=== PATIENT | female | born 1980 | race Caucasian/White ===

== ENCOUNTER → 2017-09-20 12:23 | Outpatient (CLI) | payer BC, SELFPAY ==
[2017-09-20 12:37] LABS: Basophils # 0.1 K/mm3 (0-0.2); Basophils % 0.7 % (0.1-2.0); Eosinophils # 0.1 K/mm3 (0.0-0.4); Eosinophils % 1.6 % (0.1-12.0); Hematocrit 46.6 % (37.0-47.0); Lymphocytes # 2.2 K/mm3 (0.7-4.5); Lymphocytes % 24.1 K/mm3 (10-50); Mean Corpuscular HGB Conc 32.3 g/dL (31.8-35.4); Mean Corpuscular Hemoglobin 26.8 pg (27.0-31.2); Mean Corpuscular Volume 83.2 fl (81-99); Mean Platelet Volume 7.7 fl (7.4-10.4); Monocytes # 0.5 K/mm3 (0.1-1.0); Monocytes % 5.3 % (1.7-9.3); Neutrophils # 6.1 K/mm3 (1.8-7.8); Neutrophils % 68.3 % (37.0-80.0); Platelet Count 332 K/mm3 (142-424); Red Cell Distribution Width 13.7 % (11.5-17.5); White Blood Count 8.9 K/mm3 (4.8-10.8)
[2017-09-20 13:13] LABS: Anion Gap 10.8 mEq/L (5-15); Blood Urea Nitrogen 12 mg/dL (7-18); Carbon Dioxide 30 mmol/L (21.0-32.0); Chloride 105 mmol/L (98-107); Creatinine,Serum 0.88 mg/dL (0.55-1.02); Estimated Glomerular Filt Rate 72 ml/min (>60); GFR (African American) 87 ML/MIN (>60); Glucose 104 mg/dL (74-106); Potassium 3.8 mmoL/L (3.5-5.1); Sodium 142 mmol/L (136-145)
[2017-09-20 13:29] LABS: HCG Qualitative, Serum Negative (Negative)
== END ==
PROVIDERS: PCP Physician Assistant; Visit Provider Nurse Practitioner Obstetrics & Gynecology
DX: Z01.818 Encounter for other preprocedural examination (principal)
CPT/HCPCS: 36415; 80048; 84703; 85025

== ENCOUNTER 2017-09-23 06:08 | Day surgery (SDC) | payer BC, SELFPAY ==
[2017-09-20 12:09] VITALS: BMI 36.0
[2017-09-23] VITALS (11 sets, daily range): BP systolic 114–147; BP diastolic 64–85; PULSE 55–654; RESP 12–64; TEMP 36.1–43; O2SAT 94–99
--- NOTE | 2017-09-23 07:18 | P.PN_ITS ---
[facility] Anesthesia Checklist - Patient Identification Patient Identification: Arm Band, Verbal (Name & ) - Structural Data Admitted From: Home Planned Operative Procedure/s: dx lap, d and c Consent for Planned Operative Procedure(s) Verified: Yes Verified Documents: Surgical Consent - NPO Status Verified Time NPO: 00:00 - Chart Verification Results Verified: CBC, BMP - Additional verifications Patient : No Anesthesia Reactions: No Hx Blood Transfusions: No Blood Transfusion Reaction: No Cephalosporin Allergy: No Previous Colonoscopy: No - Cardiovascular Assessment Heart Sounds: S1 & S2 Pulse Strength: Baseline Pulse Rhythm: Regular Peripheral Edema: No - Airway Assessment C-Spine Mobility Assessed: Yes TMJ Mobility Assessed: Yes Dentition: Good Dentition - Neurological Assessment Level of Consciousness: Awake, Alert, Appropriate Hx Seizures: No Numbness or tingling in extremities: No - Anesthesia Plan Anesthesia Risk discussed: Yes ASA Class: III Anesthesia Type: General [facility] Anesthesia HX I have reviewed the patient's past medical history: Yes Medical History: Reports:: Gastroesophageal Reflux Disease(GERD), Hypertension Denies:: Cancer, Diabetes Mellitus Type 1, Diabetes Mellitus Type 2, MRSA, Seizures Other Medical History: Denies: Blood Transfusion Reaction (n/a) Laterality Cases: Bilateral: Other Amputation: No Fractures: No *Family Hx:: Cancer, Coronary Artery Disease, Diabetes, Heart Attack, Hyperlipidemia, Hypertension
--- NOTE | 2017-09-23 08:38 | HMH.OPNOTE ---
Date of procedure: 09/23/17 Pre-op Diagnosis:: Menorrhagia, desire for sterilization Post-op diagnosis:: same Procedure performed:: Laparoscopic bilateral salpingectomy, hysteroscopy, dilation and curettage, NovaSure ablation Surgeon:: Simone Melendez MD LITHOGRAPH PRESS OPERATOR:: Luciano Saundersferty Anesthesia: GETJoey Estimated blood loss (mL): 50 Clinical Note:: She is a 37-year-old lady who expressed desire for sterilization. She also had heavy periods. The risks and benefits of surgery discussed the patient prior to surgery. Operative findings:: She had a normal-appearing uterus that sounded to 8 cm. The tubes and ovaries appeared normal. The appendix appeared normal. The upper abdomen appeared normal. The pelvis otherwise appear normal. Operative note:: She was taken to the operating room where general anesthesia was found be adequate. She was prepped and draped in the normal fashion in the semilithotomy position. A weighted speculum was placed in the vagina and the anterior lip of the cervix was grasped with a tenaculum. Williamson dilators used to dilate the cervix to approximately 4 mm. I then inserted a Estela uterine manipulator into the uterine cavity and insufflated the balloon. I then changed my gloves. I injected 10 cc of 0.5% ropivacaine around the umbilicus and made a small incision within the umbilicus. I inserted a Veress needle into the abdominal cavity. The abdominal cavity was then insufflated with carbon dioxide gas to a pressure of 20 mmHg. I then inserted a 5 mm trocar under direct vision. I injected through and through the pubic hairline, made a small incision here and inserted an 8 mm trocar under direct vision. I then identified the inferior epigastric arteries on the left side, went lateral to these and injected through and through. I then inserted a 5 mm trocar under direct vision. The left tube was then grasped and using harmonic scalpel I cut across the tube at the cornua of the uterus. I cauterized along the tube approximately 1 cm. I then grasped the distal end of the tube and using harmonic scalpel cut along the mesosalpinx. Tube was removed and placed in the through the 8 mm trocar. This is similar performed on the patient's right side. After once again assuring hemostasis, Photographs were taken. I injected 30 cc of 0.5% ropivacaine into the pelvis. The secondary trochars were then removed under direct vision and the sites were hemostatic. The gas was let out of the abdomen. The primary trocar and camera removed together. The 8 mm trocar site was closed deeply with 2-0 Vicryl suture followed by subcuticular 4-0 Monocryl. The 5 mm trocar sites were closed with subcuticular 4-0 Monocryl suture. Sterile dressings were applied. Patient was then once again placed in the lithotomy position. A weighted speculum was placed in the vagina and the anterior lip of the cervix was grasped with a tenaculum. Williamson dilators were used to dilate the cervix to approximately 7 mm. I then inserted hysteroscope into the uterine cavity using saline as a distending media. The endometrium appeared normal. I then performed a gentle curettage. The uterus sounded to 8 cm and the endometrial cavity was 5 cm long. It was 3.6 cm wide. These numbers were placed in the device. The NovaSure device was then placed within the uterine cavity. It was run through its program. I then further inspected the uterine cavity after the procedure and photographs were taken. The endometrial cavity appeared to be completely charred. I injected 30 cc of 0.5% ropivacaine at the 3:00, 5:00, 7:00, and 9:00 positions of the cervix. The patient tolerated the procedure well and was taken to the recovery room in excellent condition. All sponge instrument and needle counts were correct. The estimated blood loss was less than 50 cc. Pathology: other (Endometrial curettings, bilateral fallopian tubes) Condition: stable Disposition: PACU Complications:: None
--- NOTE | 2017-09-23 08:43 | P.OP_ITS ---
Date of procedure: 09/23/17 Pre-op Diagnosis:: Menorrhagia, desire for sterilization Post-op diagnosis:: same Procedure performed:: Laparoscopic bilateral salpingectomy, hysteroscopy, dilation and curettage, NovaSure ablation Surgeon:: Simone Melendez MD PORCELAIN ENAMELER:: Luciano Saundersferty Anesthesia: GETJoey Estimated blood loss (mL): 50 Clinical Note:: She is a 37-year-old lady who expressed desire for sterilization. She also had heavy periods. The risks and benefits of surgery discussed the patient prior to surgery. Operative findings:: She had a normal-appearing uterus that sounded to 8 cm. The tubes and ovaries appeared normal. The appendix appeared normal. The upper abdomen appeared normal. The pelvis otherwise appear normal. Operative note:: She was taken to the operating room where general anesthesia was found be adequate. She was prepped and draped in the normal fashion in the semilithotomy position. A weighted speculum was placed in the vagina and the anterior lip of the cervix was grasped with a tenaculum. Williamson dilators used to dilate the cervix to approximately 4 mm. I then inserted a Estela uterine manipulator into the uterine cavity and insufflated the balloon. I then changed my gloves. I injected 10 cc of 0.5% ropivacaine around the umbilicus and made a small incision within the umbilicus. I inserted a Veress needle into the abdominal cavity. The abdominal cavity was then insufflated with carbon dioxide gas to a pressure of 20 mmHg. I then inserted a 5 mm trocar under direct vision. I injected through and through the pubic hairline, made a small incision here and inserted an 8 mm trocar under direct vision. I then identified the inferior epigastric arteries on the left side, went lateral to these and injected through and through. I then inserted a 5 mm trocar under direct vision. The left tube was then grasped and using harmonic scalpel I cut across the tube at the cornua of the uterus. I cauterized along the tube approximately 1 cm. I then grasped the distal end of the tube and using harmonic scalpel cut along the mesosalpinx. Tube was removed and placed in the through the 8 mm trocar. This is similar performed on the patient's right side. After once again assuring hemostasis, Photographs were taken. I injected 30 cc of 0.5% ropivacaine into the pelvis. The secondary trochars were then removed under direct vision and the sites were hemostatic. The gas was let out of the abdomen. The primary trocar and camera removed together. The 8 mm trocar site was closed deeply with 2-0 Vicryl suture followed by subcuticular 4-0 Monocryl. The 5 mm trocar sites were closed with subcuticular 4-0 Monocryl suture. Sterile dressings were applied. Patient was then once again placed in the lithotomy position. A weighted speculum was placed in the vagina and the anterior lip of the cervix was grasped with a tenaculum. Williamson dilators were used to dilate the cervix to approximately 7 mm. I then inserted hysteroscope into the uterine cavity using saline as a distending media. The endometrium appeared normal. I then performed a gentle curettage. The uterus sounded to 8 cm and the endometrial cavity was 5 cm long. It was 3.6 cm wide. These numbers were placed in the device. The NovaSure device was then placed within the uterine cavity. It was run through its program. I then further inspected the uterine cavity after the procedure and photographs were taken. The endometrial cavity appeared to be completely charred. I injected 30 cc of 0.5% ropivacaine at the 3:00, 5:00, 7:00, and 9:00 positions of the cervix. The patient tolerated the procedure well and was taken to the
--- NOTE | 2017-09-23 08:55 | P.PN_ITS ---
[facility] Anesthesia Record Part II Discharge Time: 09:21 Destination: Surgical Day Care (OP Surgery) PACU nurse assessment reviewed?: Yes Patient Condition:: Good Anesthesia Complications:: None
--- NOTE | 2017-09-23 08:55 | P.PN_ITS ---
[facility] Anesthesia Record Part I Intake, IV Amount: 900 Estimated blood loss (mL): 10 Urine output (mL): 100 Blood Products used (#): none Blood Pressure: 114/74 SaO2: 95 Pulse Rate: 55 Respiratory Rate: 18 Temperature: 97.3 F Patient is:: Drowsy, Nasal O2 Stable to PACU at:: 08:51
== END 2017-09-23 10:15 | disposition home or self-care (01) ==
LOC: OR 06:10
PROVIDERS: Family Provider Family Medicine; PCP Physician Assistant; Visit Provider Nurse Practitioner Obstetrics & Gynecology
PROC: (CPT 58661; principal; 2017-09-23 07:30)
PROC: 0U5B7ZZ Destruction of Endometrium, Via Natural or Artificial Opening (ICD-10-PCS; CPT 58353; 2017-09-23 07:30)
PROC: 0UDB8ZZ Extraction of Endometrium, Via Natural or Artificial Opening Endoscopic (ICD-10-PCS; CPT 58558; 2017-09-23 07:30)
DX: N92.0 Excessive and frequent menstruation with regular cycle (principal); Z30.2 Encounter for sterilization
CPT/HCPCS: 58661; 58563; 96374; J0131; J2405; J2710

== ENCOUNTER → 2018-04-07 09:08 | Outpatient (CLI) | payer BC, SELFPAY | PROVIDERS: Family Provider Family Medicine; PCP Physician Assistant; Visit Provider Family Medicine | DX: R07.89 Other chest pain (principal) | CPT/HCPCS: 93017 ==

== ENCOUNTER → 2018-05-15 10:29 | Outpatient (POV) | payer BC, SELFPAY | PROVIDERS: Family Provider Family Medicine; PCP Physician Assistant; Visit Provider Nurse Practitioner Acute Care | DX: Z00.00 Encounter for general adult medical examination without abnormal findings (principal) ==

== ENCOUNTER → 2018-05-31 10:39 | Outpatient (CLI) | payer BC, SELFPAY ==
[2018-05-31 15:52] VITALS: PULSE 78; PULSE 82
== END ==
PROVIDERS: Family Provider Family Medicine; PCP Physician Assistant; Visit Provider Physician Assistant
DX: R06.02 Shortness of breath (principal)
CPT/HCPCS: 94060; 94640; 94726; 94729

== ENCOUNTER → 2018-06-06 09:04 | Outpatient (POV) | payer BC, SELFPAY | PROVIDERS: Family Provider Family Medicine; PCP Physician Assistant; Visit Provider Otolaryngology | DX: Z00.00 Encounter for general adult medical examination without abnormal findings (principal) ==

== ENCOUNTER → 2018-06-15 09:27 | Outpatient (CLI) | payer BC, SELFPAY ==
--- NOTE | 2018-06-15 09:29 | MM_ITS ---
MM Dig screening mamm BI w/CAD CAD Screening COMPARISON: Digital mammograms with CAD 05/30/2017 and 05/25/2016 INDICATION: There is a history of breast cancer patient maternal aunt diagnosed at age 45. TECHNIQUE: Standard CC and MLO images were obtained. R2 CAD reviewed. FINDINGS: There is a diffusely dense and heterogenic parenchymal pattern somewhat lessening the sensitivity of mammography. The findings are bilateral and symmetrical. There is no suspicious lesion and no suspicious microcalcifications. IMPRESSION: Dense parenchymal pattern no suspicious lesion seen BI-RADS Category: 1 Negative RECOMMENDED FOLLOW-UP: 1YR - 1 YEAR FOLLOW-UP (A letter has been sent to the patient regarding results of the study.)
== END ==
PROVIDERS: PCP Physician Assistant; Visit Provider Nurse Practitioner Obstetrics & Gynecology
DX: Z12.31 Encounter for screening mammogram for malignant neoplasm of breast (principal)
CPT/HCPCS: 77067

== ENCOUNTER → 2018-06-27 09:12 | Outpatient (POV) | payer BC, SELFPAY | PROVIDERS: Visit Provider Otolaryngology | DX: Z00.00 Encounter for general adult medical examination without abnormal findings (principal) ==

== ENCOUNTER → 2018-07-25 09:45 | Outpatient (POV) | payer BC, SELFPAY | PROVIDERS: Visit Provider Otolaryngology | DX: Z00.00 Encounter for general adult medical examination without abnormal findings (principal) ==

== ENCOUNTER 2018-08-26 10:36 | Observation (INO) ==
[2018-08-26 11:52] LABS: Basophils % 0.2 % (0.1-2.0); Eosinophils # 0.2 K/mm3 (0.0-0.4); Hemoglobin 15.5 g/dL (12.2-16.2); Lymphocytes # 1.8 K/mm3 (0.7-4.5); Lymphocytes % 10.5 % (10-50); Mean Corpuscular HGB Conc 32.9 g/dL (31.8-35.4); Mean Corpuscular Hemoglobin 26.8 pg (27.0-31.2); Mean Corpuscular Volume 81.6 fl (81-99); Mean Platelet Volume 7.5 fl (7.4-10.4); Monocytes # 0.9 K/mm3 (0.1-1.0); Monocytes % 5.3 % (1.7-9.3); Neutrophils # 14.6 K/mm3 (1.8-7.8); Platelet Count 402 K/mm3 (142-424); Red Blood Count 5.76 M/mm3 (4.20-5.40); Red Cell Distribution Width 13.2 % (11.5-17.5); White Blood Count 17.6 K/mm3 (4.8-10.8)
[2018-08-26 12:13] LABS: Anion Gap 12.3 mEq/L (5-15); Bilirubin,Total 0.7 mg/dL (0.2-1.0); Calcium 9.3 mg/dL (8.5-10.1); Globulin 4.2 gm/dl (1.3-3.2); Potassium 3.3 mmoL/L (3.5-5.1); Total Protein,Serum 8.2 gm/dL (6.4-8.2)
--- NOTE | 2018-08-26 12:20 | History & Physical Report ---
*Admission Date: 08/26/18 <Sugar Herring 08/26/18 12:19> *Chief complaint: nausea, diarrhea, abdominal pain <Sugar Herring 08/26/18 12:43> *History of present illness: Ms. Lorenz is a 38yo female who presented to the office of [facility] today with a 2 day hx of cramping abdominal pain, diarrhea, and nausea. She states she began feeling nauseated last night around 8:30pm. She got into a cool bath because she felt weak and near syncopal. She did not vomiting. She began having d iarrhea and this continued until around midnight. She took a zofran and this did help with the nausea. The diarrhea began again this am. She now has some blood in her stool. Of note, she had a tonsillectomy done on 08/17/18 and has not had much of an appetite since that surgery. She just finished a round of amoxicillin on . She was evaluated in the office and her WBC was 19.9. She was admitted for further evaluation and treatment. <Sugar Herring 08/26/18 12:43> [facility] History Medical History: Reports:: Anxiety, Depression, Gastroesophageal Reflux Disease(GERD), Hyperlipidemia, Hypertension Denies:: Asthma, Cancer, Diabetes Mellitus Type 1, Diabetes Mellitus Type 2, Gastrointestinal Bleed, Internal Pacemaker, Lung Disease, Migraine, Renal Disease, Seizures, Ulcer <Sugar Herring 08/26/18 12:19> Other Medical History: Reports: Other (eriberto-cpap hs) <Sugar Herring 08/26/18 12:19> Laterality Cases: Bilateral: Tonsillectomy, Other (Cyst removed from mouth) <Sugar Herring 08/26/18 12:19> Other Surgeries: Yes: Tubal Ligation. No: Pacemaker <Sugar Herring 08/26/18 12:19> Amputation: No <Sugar Herring 08/26/18 12:19> Fractures: No <Sugar Herring 08/26/18 12:19> - *Social History Educational Level: Completed High School <Sugar Herring 08/26/18 12:19> Smoking Status: Former smoker <Sugar Herring 08/26/18 12:19> Tobacco Type: cigarettes <Lio Herring08/26/18 12:19> Alcohol Intake: never <Lio Herring08/26/18 12:19> Substance Use Type: denies use <Lio Herring08/26/18 12:19> Occupational Status: employed <Lio Herring08/26/18 12:19> Housing: house <Lio Herring08/26/18 12:19> Household Members: spouse <Lio Herring08/26/18 12:19> - Psychiatric History Expresses thoughts of harming self/others: None <Lio Herring08/26/18 12:19> Suicide Plan Description: No Plan <Sugar Herring 08/26/18 12:19> Pschychiatric History:: Denies:: Anxiety <Lio Herring08/26/18 12:19> *Family Hx:: Cancer, Coronary Artery Disease, Diabetes, Heart Attack, Hyperlipidemia, Hypertension <Lio Herring08/26/18 12:19> CENTRAL COMMUNICATIONS SPECIALIST history: No CENTRAL COMMUNICATIONS SPECIALIST history <Lio Herring08/26/18 12:19> Review of Systems - Constitutional Reports body ache(s), Reports chills, Reports weakness, Denies fever(s) <Lio Herring08/26/18 12:43> - Eyes Denies blurry vision, Denies double vision <Lio Herring08/26/18 12:43> - ENT Reports sore throat, Denies nasal congestion <Lio Herring08/26/18 12:43> - *Cardiovascular Denies chest pain, Denies rapid, pounding, or irregular heartbeat <Lio Herring08/26/18 12:43> - *Respiratory Denies chest congestion, Denies cough, Denies shortness of breath <Lio Muro08/26/18 12:43> - *Gastrointestinal Reports abdominal pain (lower abdomen), Reports loose stools (with blood), Reports nausea, Denies vomiting <Lio Herring08/26/18 12:43> - *Genitourinary Reports other (decreased UOP), Denies difficulty urinating, Denies painful urination <Sugar Herring - 08/26/18 12:43> - *Musculoskeletal Reports body aches, Denies joint pain <JunitopabloSugar - 08/26/18 12:43> - *Neurologic Reports dizziness, Reports weakness <NevaehSugar - 08/26/18 12:43> Meds Home Medications Medication Instructions Recorded Confirmed Type Oxycodone HCl/Acetaminophen 1 tab PO Q4-6H PRN 08/26/18 08/26/18 History [Percocet 5/325mg tablet] <Van Huddleston - 08/26/18 13:51> Allergies Allergy/AdvReac Type Severity Reaction Status Date / Time grape Allergy Mild UNKNOWN Verified 10/26/17 14:13 walnut Allergy Mild UNKNOWN Verified 10/26/17 14:13 bupropion [From [employer]] Allergy Unknown -- Verified 10/26/17 14:13 roche Allergy Unknown Verified 10/26/17 14:13 methylprednisolone Allergy Unknown -- Verified 10/26/17 14:13 [METHYLPREDNISOLONE] <Van Huddleston - 08/26/18 13:51> Exam Vital signs and Labs for Last 24 Hours: Temp Pulse Resp BP Pulse Ox 97.4 F L 101 H 18 138/103 H 100 08/26/18 10:44 08/26/18 10:44 08/26/18 10:44 08/26/18 10:44 08/26/18 10:44 Laboratory Results - last 24 hr 08/26/18 11:44: WBC 17.6 H, RBC 5.76 H, Hgb 15.5, Hct 47.0, MCV 81.6, MCH 26.8 L , MCHC 32.9, RDW 13.2, Plt Count 402, MPV 7.5, Neut % (Auto) 83.0 H, Lymph % (Auto) 10.5, [place] % (Auto) 5.3, Eos % (Auto) 1.0, Baso % (Auto) 0.2, Neut # (Auto) 14.6 H, Lymph # (Auto) 1.8, [place] # (Auto) 0.9, Eos # (Auto) 0.2, Baso # (Auto) 0.0, Total Counted 100, Neutrophils % (Manual) 85 H, Lymphocytes % (Manual) 10, Monocytes % (Manual) 5, Platelet Estimate Slight increase, Hypochromasia 1+ 08/26/18 11:44: Sodium 134 L, Potassium 3.3 L, Chloride 97 L, Carbon Dioxide 28, Anion Gap 12.3, BUN 10, Creatinine 0.97, Estimated Creat Clear 114, Estimated GFR 64, Est GFR ( Amer) 78, Glucose 137 H, Calcium 9.3, Total Bilirubin 0.7, AST 16, ALT 25, Alkaline Phosphatase 134 H, Total Protein 8.2, Albumin 4.0, Globulin 4.2 H, Albumin/Globulin Ratio 1.0 L <Van Huddleston - 08/26/18 13:51> Temp Pulse Resp BP Pulse Ox 97.4 F L 101 H 18 138/103 H 100 08/26/18 10:44 08/26/18 10:44 08/26/18 10:44 08/26/18 10:44 08/26/18 10:44 Laboratory Results - last 24 hr 08/26/18 11:44: WBC 17.6 H, RBC 5.76 H, Hgb 15.5, Hct 47.0, MCV 81.6, MCH 26.8 L , MCHC 32.9, RDW 13.2, Plt Count 402, MPV 7.5, Neut % (Auto) 83.0 H, Lymph % (Auto) 10.5, [place] % (Auto) 5.3, Eos % (Auto) 1.0, Baso % (Auto) 0.2, Neut # (Auto) 14.6 H, Lymph # (Auto) 1.8, [place] # (Auto) 0.9, Eos # (Auto) 0.2, Baso # (Auto) 0.0 <Sugar Herring - 08/26/18 12:43> I & O for Last 24 hours: Intake & Output 08/24/18 08/25/18 08/26/18 08/27/18 11:59 11:59 11:59 11:59 Weight 202 lb <Van Huddleston - 08/26/18 13:51> Intake & Output 08/24/18 08/25/18 08/26/18 08/27/18 11:59 11:59 11:59 11:59 Weight 202 lb <Sugar Herring 08/26/18 12:19> - Constitutional Comments: Does not appear to feel well <Sugar Herring - 08/26/18 12:43> - *Routine HEENT Exam Head: Present: normocephalic <Sugar Herring 08/26/18 12:43> Eye: Present: EOMI, PERRL <Sugar Herring 08/26/18 12:43> ENT: Present: mucous membranes dry <Sugar Herring 08/26/18 12:43> - *Routine Neck Exam Present: supple. Absent: lymphadenopathy <Sugar Herring 08/26/18 12:43> - *Routine Respiratory Exam Present: CTA bilaterally <Sugar Herring 08/26/18 12:43> - *Routine Cardiovascular Exam Present: RRR <Sugar Herring 08/26/18 12:43> - *Routine Abdominal Exam Present: soft, normoactive bowel sounds, tenderness (bilateral lower quadrants) <Sugar Herring 08/26/18 12:43> - *Routine Extremities Exam Absent: cyanosis, clubbing, edema <Sugar Herring 08/26/18 12:43> - *Routine Skin Exam Present: warm. Absent: rash <Sugar Herring 08/26/18 12:43> - *Routine Neurological Exam Present: alert, oriented X3 <Sugar Herring 08/26/18 12:43> Assessment and Plan (1) Gastroenteritis Current visit: Yes Status: Acute Category: Medical Code(s): K52.9 - Noninfective gastroenteritis and colitis, unspecified (2) Leukocytosis Current visit: Yes Status: Acute Category: Medical Code(s): D72.829 - Elevated white blood cell count, unspecified (3) Dehydration Current visit: Yes Status: Acute Category: Medical Code(s): E86.0 - Dehydration (4) Status post tonsillectomy and adenoidectomy Current visit: Yes Status: Acute Category: Surgical Code(s): Z90.89 - Acquired absence of other organs (5) Hypertension Current visit: Yes Status: Chronic Category: Medical Code(s): I10 - Essential (primary) hypertension <Van Huddleston - 08/26/18 13:51> (1) Gastroenteritis Current visit: Yes Status: Acute Category: Medical Code(s): K52.9 - Noninfective gastroenteritis and colitis, unspecified (2) Leukocytosis Current visit: Yes Status: Acute Category: Medical Code(s): D72.829 - Elevated white blood cell count, unspecified (3) Dehydration Current visit: Yes Status: Acute Category: Medical Code(s): E86.0 - Dehydration (4) Status post tonsillectomy and adenoidectomy Current visit: Yes Status: Acute Category: Surgical Code(s): Z90.89 - Acquired absence of other organs (5) Hypertension Current visit: Yes Status: Chronic Category: Medical Code(s): I10 - Essential (primary) hypertension <Sugar Herring - 08/26/18 12:44> - Assessment and plan all Dx Assessment and Plan for all problems:: Saw patient in office and in hospital today. <Van Huddleston - 08/26/18 13:51> Pt was admitted and started on IVF's, antiemetics, a clear liquid diet, and abx. Will get a diarrhea panel. Patient also requests a lipid panel. <Sugar Herring - 08/26/18 12:47>
[2018-08-26 12:23] LABS: Lymphocytes % 10 % (10-50); Monocytes % 5 % (2-9); Neutrophils % 85 % (42-76); Total Cells Counted 100
[2018-08-26 12:24] LABS: Hypochromasia 1+
[2018-08-27 06:25] LABS: Basophils # 0.1 K/mm3 (0-0.2); Basophils % 0.7 % (0.1-2.0); Eosinophils # 0.1 K/mm3 (0.0-0.4); Eosinophils % 1.1 % (0.1-12.0); Hematocrit 42.2 % (37.0-47.0); Lymphocytes # 3.7 K/mm3 (0.7-4.5); Lymphocytes % 35.9 % (10-50); Mean Corpuscular HGB Conc 32.7 g/dL (31.8-35.4); Mean Corpuscular Hemoglobin 27.2 pg (27.0-31.2); Mean Corpuscular Volume 83.3 fl (81-99); Mean Platelet Volume 7.6 fl (7.4-10.4); Monocytes # 0.8 K/mm3 (0.1-1.0); Neutrophils # 5.7 K/mm3 (1.8-7.8); Neutrophils % 54.3 % (37.0-80.0); Platelet Count 333 K/mm3 (142-424); Red Blood Count 5.07 M/mm3 (4.20-5.40); Red Cell Distribution Width 13.3 % (11.5-17.5); White Blood Count 10.4 K/mm3 (4.8-10.8)
[2018-08-27 06:26] LABS: Hemoglobin 13.8 g/dL (12.2-16.2)
[2018-08-27 06:41] LABS: Anion Gap 9.9 mEq/L (5-15); Calcium 8.8 mg/dL (8.5-10.1); Potassium 3.9 mmoL/L (3.5-5.1)
--- NOTE | 2018-08-27 08:47 | Progress Note ---
Internal Medicine - PN: Subj *Date: 08/27/18 *Time: 08:45 Interval history: Patient feels a little better today, still has nausea, diarrhea has basically resolved. Exam Vital signs and Labs for Last 24 Hours: Temp Pulse Resp BP Pulse Ox 97.6 F 73 18 151/99 H 97 08/27/18 08:00 08/27/18 08:00 08/27/18 08:03 08/27/18 08:00 08/27/18 08:00 Laboratory Results - last 24 hr 08/26/18 11:44: WBC 17.6 H, RBC 5.76 H, Hgb 15.5, Hct 47.0, MCV 81.6, MCH 26.8 L , MCHC 32.9, RDW 13.2, Plt Count 402, MPV 7.5, Neut % (Auto) 83.0 H, Lymph % ( Auto) 10.5, [place] % (Auto) 5.3, Eos % (Auto) 1.0, Baso % (Auto) 0.2, Neut # (Auto) 14.6 H, Lymph # (Auto) 1.8, [place] # (Auto) 0.9, Eos # (Auto) 0.2, Baso # (Auto) 0.0, Total Counted 100, Neutrophils % (Manual) 85 H, Lymphocytes % (Manual) 10, Monocytes % (Manual) 5, Platelet Estimate Slight increase, Hypochromasia 1+ 08/26/18 11:44: Sodium 134 L, Potassium 3.3 L, Chloride 97 L, Carbon Dioxide 28, Anion Gap 12.3, BUN 10, Creatinine 0.97, Estimated Creat Clear 114, Estimated GFR 64, Est GFR ( Amer) 78, Glucose 137 H, Calcium 9.3, Total Bilirubin 0.7, AST 16, ALT 25, Alkaline Phosphatase 134 H, Total Protein 8.2, Albumin 4.0, Globulin 4.2 H, Albumin/Globulin Ratio 1.0 L 08/26/18 18:47: Stl Aeromonas (PCR) Not detected, Stl C. cayetanensis PCR Not detected, Stool Rotavirus (PCR) Not detected, Stl Adenov F 40/41 PCR Not detected, Stool Astrovirus (PCR) Not detected, Stool Campylobacter PCR Not detected, Stl C.difficile Tox PCR Not detected, Stool Cryptosporidium PCR Not detected, Stl E.coli Shiga Tox PCR Not detected, Stool E coli O157 PCR Not detected, Stl Enterotoxigenic E PCR Not detected, Stool EPEC (PCR) Not detected, Stool EAEC (PCR) Not detected, Stl E. histolytica PCR Not detected, Stool Giardia Lamblia PCR Not detected, Stool Salmonella PCR Not detected, Stool Sapovirus (PCR) Not detected, Stl P. shigelloides PCR Not detected, Stl Shigella/EIEC PCR Not detected, St Y.enterocolitica PCR Not detected, Stool Vibrio (PCR) Not detected, Stl Vibrio cholerae PCR Not detected, Stl Norovirus GI/GII PCR Not detected 08/27/18 05:50: WBC 10.4 D, RBC 5.07, Hgb 13.8 D, Hct 42.2, MCV 83.3, MCH 27.2, MCHC 32.7, RDW 13.3, Plt Count 333, MPV 7.6, Neut % (Auto) 54.3, Lymph % (Auto) 35.9, [place] % (Auto) 8.0, Eos % (Auto) 1.1, Baso % (Auto) 0.7, Neut # (Auto) 5.7, Lymph # (Auto) 3.7, [place] # (Auto) 0.8, Eos # (Auto) 0.1, Baso # (Auto) 0.1 08/27/18 05:50: Sodium 140, Potassium 3.9, Chloride 103, Carbon Dioxide 31, Anion Gap 9.9, BUN 6 L D, Creatinine 0.93, Estimated Creat Clear 119, Estimated GFR 67, Est GFR ( Amer) 82, Glucose 112 H, Calcium 8.8 I & O for Last 24 hours: Intake & Output 08/24/18 08/25/18 08/26/18 08/27/18 11:59 11:59 11:59 11:59 Intake Total 3144 / 3144 Balance 3144 / 3144 Weight 202 lb - Constitutional no acute distress - *Routine HEENT Exam Head: Present: normocephalic Eye: Present: EOMI, PERRL ENT: Present: mucous membranes moist - *Routine Neck Exam Present: supple. Absent: lymphadenopathy - *Routine Respiratory Exam Present: CTA bilaterally - *Routine Cardiovascular Exam Present: RRR - *Routine Abdominal Exam Present: soft, normoactive bowel sounds. Absent: tenderness - *Routine Extremities Exam Absent: cyanosis, clubbing, edema - *Routine Skin Exam Present: warm. Absent: rash - *Routine Neurological Exam Present: alert, oriented X3 Assessment and Plan (1) Gastroenteritis Current visit: Yes Status: Acute Category: Medical Code(s): K52.9 - Noninfective gastroenteritis and colitis, unspecified (2) Leukocytosis Current visit: Yes Status: Acute Category: Medical Code(s): D72.829 - Elevated white blood cell count, unspecified (3) Dehydration Current visit: Yes Status: Acute Category: Medical Code(s): E86.0 - Dehydration (4) Status post tonsillectomy and adenoidectomy Current visit: Yes Status: Acute Category: Surgical Code(s): Z90.89 - Acquired absence of other organs (5) Hypertension Current visit: Yes Status: Chronic Category: Medical Code(s): I10 - Essential (primary) hypertension (6) Hypokalemia Current visit: Yes Status: Acute Category: Medical Code(s): E87.6 - Hypokalemia - Assessment and plan all Dx Assessment and Plan for all problems:: Advance to a soft diet, possible discharge later today.
--- NOTE | 2018-08-27 11:06 | Pharmacy Consult Notes ---
[facility] Pharmacy VTE Monitoring - Patient Demographics Admission date: 08/27/18 Report Date: 08/27/18 Time: 11:05 Allergies/Adverse Reactions: Patient Allergies grape Allergy (Mild, Verified 10/26/17 14:13) UNKNOWN walnut Allergy (Mild, Verified 10/26/17 14:13) UNKNOWN bupropion [From ZYBAN] Allergy (Unknown, Verified 10/26/17 14:13) -- roche Allergy (Unknown, Verified 10/26/17 14:13) methylprednisolone [METHYLPREDNISOLONE] Allergy (Unknown, Verified 10/26/17 14:13) -- Height: 1.63 m Weight: 91.626 kg Patient Problems: Current Active Problems Gastroenteritis (Acute) Leukocytosis (Acute) Dehydration (Acute) Status post tonsillectomy and adenoidectomy (Acute) Hypertension (Chronic) Hypokalemia (Acute) - VTE Risk Labs: VTE Related Lab Results Hgb 13.8 g/dL (12.2-16.2) D 08/27/18 05:50 Hct 42.2 % (37.0-47.0) 08/27/18 05:50 Plt Count 333 K/mm3 (142-424) 08/27/18 05:50 BUN 6 mg/dL (7-18) L D 08/27/18 05:50 Creatinine 0.93 mg/dL (0.55-1.02) 08/27/18 05:50 Estimated Creat Clear 119 mL/min (50-200) 08/27/18 05:50 Was VTE Risk Assessment Performed: Yes VTE Score: 2 VTE Risk Level: Very Low Risk - Prophylaxis Types of VTE Prophylaxis: TEDS Knee High Location of Applied Device: Bilateral Lower Extremeties (AFUA HOSE ORDER PLACED)
--- NOTE | 2018-08-28 13:12 | Discharge Summary ---
General - General Admission date:: 08/26/18 Discharge date: 08/27/18 HPI HPI: Ms. Lorenz is a 38yo female who presented to the office of [facility] today with a 2 day hx of cramping abdominal pain, diarrhea, and nausea. She states she began feeling nauseated last night around 8:30pm. She got into a cool bath because she felt weak and near syncopal. She did not vomiting. She began having diarrhea and this continued until around midnight. She took a zofran and this did help with the nausea. The diarrhea began again this am. She now has some blood in her stool. Of note, she had a tonsillectomy done on 08/17/18 and has not had much of an appetite since that surgery. She just finished a round of amoxicillin on . She was evaluated in the office and her WBC was 19.9. She was admitted for further evaluation and treatment. Hospital Course Hospital Course: The patient was started on IV fluids, antiemetics, a clear liquid diet, and antibiotics due to her elevated white blood cell count. A diarrhea panel was ordered as well. After one night, her nausea was still present but her diarrhea basically resolved. Her diarrhea panel was normal. Her white blood cell count returned to normal and her potassium normalized as well. She was advanced to a soft diet and tolerated this. She was stable to be discharged home. Objective Vital signs: Temp Pulse Resp BP Pulse Ox 97.6 F 73 18 151/99 H 97 08/27/18 08:00 08/27/18 08:00 08/27/18 08:03 08/27/18 08:00 08/27/18 08:00 Narrative: - Constitutional Comments: Does not appear to feel well - *Routine HEENT Exam Head: Present: normocephalic Eye: Present: EOMI, PERRL ENT: Present: mucous membranes dry - *Routine Neck Exam Present: supple. Absent: lymphadenopathy - *Routine Respiratory Exam Present: CTA bilaterally - *Routine Cardiovascular Exam Present: RRR - *Routine Abdominal Exam Present: soft, normoactive bowel sounds, tenderness (bilateral lower quadrants) - *Routine Extremities Exam Absent: cyanosis, clubbing, edema - *Routine Skin Exam Present: warm. Absent: rash - *Routine Neurological Exam Present: alert, oriented X3 DS: Diagnosis - Discharge Diagnosis (1) Gastroenteritis Status: Acute (2) Leukocytosis Status: Acute (3) Dehydration Status: Acute (4) Status post tonsillectomy and adenoidectomy Status: Acute (5) Hypertension Status: Chronic (6) Hypokalemia Status: Acute Discharge Plan - Patient Discharge Instructions Patient Instructions: DI for Viral Gastroenteritis -- Adult - Follow up Plan Follow up with: Van Huddleston MD [Primary Care Provider] - Disposition: Home, Self-Alf Medications: Home Medications Medication Instructions Recorded Confirmed Type Oxycodone HCl/Acetaminophen 1 tab PO Q4-6H PRN 08/26/18 08/26/18 History [Percocet 5/325mg tablet] Amlodipine Besylate 10 mg PO DAILY 08/27/18 08/27/18 History Atorvastatin Calcium [Atorvastatin 10 mg PO HS 08/27/18 08/27/18 History 10mg Tab] Fluticasone Propionate 1 spray NS DAILY 08/27/18 08/27/18 History Levocetirizine Dihydrochloride 5 mg PO DAILY 08/27/18 08/27/18 History Montelukast Sodium [Montelukast 10 mg PO HS 08/27/18 08/27/18 History 10mg Tab] Omeprazole [Omeprazole 20mg 20 mg PO DAILY 08/27/18 08/27/18 History Capsule] Prescriptions/Medication Reconciliation: No Action Oxycodone HCl/Acetaminophen [Percocet 5/325mg tablet] 1 tab PO Q4-6H PRN PRN Reason: pain Montelukast Sodium [Montelukast 10mg Tab] 10 mg PO HS Omeprazole [Omeprazole 20mg Capsule] 20 mg PO DAILY Levocetirizine Dihydrochloride 5 mg PO DAILY Fluticasone Propionate 1 spray NS DAILY Atorvastatin Calcium [Atorvastatin 10mg Tab] 10 mg PO HS Amlodipine Besylate 10 mg PO DAILY
== END 2018-08-27 15:48 | disposition home or self-care (01) ==
LOC: 2ND
PROVIDERS: ADMIT Family Medicine; ATTEND Family Medicine
CPT/HCPCS: 36415; 80048; 80053; 85007; 85025; 87507; G0378; J2405

== ENCOUNTER → 2018-09-26 09:27 | Outpatient (POV) | payer BC, SELFPAY | PROVIDERS: Visit Provider Otolaryngology | DX: Z00.00 Encounter for general adult medical examination without abnormal findings (principal) ==

== ENCOUNTER → 2018-10-10 09:20 | Outpatient (CLI) | payer BC, SELFPAY ==
--- NOTE | 2018-10-10 09:27 | US_ITS ---
US abdomen limited HISTORY: Loss of appetite. Loose stools. ORDERING PHYSICIAN: Keri Parish MD PATIENT AGE: 38 years Comparison: CT abdomen and pelvis n August 2015 e TECHNIQUE Sagittal, transverse and decubitus imaging of the gallbladder was performed. FINDINGS Pancreas. Unremarkable. No mass nor fluid nor pancreatic ductal dilatation. LIVER. No focal lesions. Upper normal echogenicity to perhaps have slight increased echogenicity about portal triads. Nonspecific feature but can be seen with mild periportal edema.. Nonspecific observation and can be normal, but can be seen with developing hepatobiliary disease. Period warrants correlation with LFTs The portal vein normal flow and direction. Hepatic veins appear normal as well GALLBLADDER - gallbladder sludge and small gallbladder polyp noted No calcified stones are evident.. Small polyp seen along anterior wall measuring just less than 4 mm. Minimal fluid sludge and debris in the gallbladder observed. The gallbladder upper normal thickness. Common duct is normal in diameter.. 4.3 mm at hilum of liver. Right kidney: Normal size right kidney 9.3 cm in length.. Cortex well-maintained No hydronephrosis nor mass. IMPRESSION:...... 1. Gallbladder: No discrete stones. Minimal sludge with Small polyp 2. Liver no focal lesion. No bili ductal dilatation. . upper normal to perhaps very slight increase echogenicity about portal triads at liver.. Nonspecific observation warrants correlation with LFTs.. Can be normal. .
== END ==
PROVIDERS: PCP Family Medicine; Visit Provider Family Medicine
DX: R10.11 Right upper quadrant pain (principal)
CPT/HCPCS: 76705

== ENCOUNTER → 2018-10-19 10:10 | Outpatient (CLI) | payer BC, SELFPAY ==
--- NOTE | 2018-10-19 10:17 | NM_ITS ---
NM hepatobiliary w pharm HISTORY: Right upper quadrant pain ITS.REASON: RUQ PAIN ORDERING PHYSICIAN: Keri Parish MD PATIENT AGE: 38 years COMPARISON: None DOSE: 8.35 mCi technetium Choletec 1.8 mcg of CCK FINDINGS: Homogeneous activity is present within the hepatic parenchyma. Activity is present in the gallbladder by 30 minutes. Activity is present in the small bowel by 30 minutes. The gallbladder ejection fraction is calculated to be 90% IMPRESSION: Unremarkable hepatobiliary scan and gallbladder ejection fraction. No evidence of common or cystic duct obstruction with normal gallbladder ejection fraction
== END ==
PROVIDERS: PCP Family Medicine; Visit Provider Family Medicine
DX: R10.11 Right upper quadrant pain (principal)
CPT/HCPCS: 78227; A9537; J2805

== ENCOUNTER → 2018-11-28 09:49 | Outpatient (CLI) | payer BC, SELFPAY ==
[2018-11-28 11:23] LABS: Potassium 3.7 mmoL/L (3.5-5.1)
== END ==
PROVIDERS: Visit Provider Physician Assistant
DX: E87.6 Hypokalemia (principal)
CPT/HCPCS: 36415; 84132

== ENCOUNTER → 2018-12-01 15:33 | Outpatient (CLI) | payer BC, SELFPAY | PROVIDERS: Visit Provider Nurse Practitioner Obstetrics & Gynecology | DX: N39.0 Urinary tract infection, site not specified (principal) | CPT/HCPCS: 87086; 87088; 87186 ==

== ENCOUNTER → 2019-04-30 07:52 | Outpatient (CLI) | payer BC, SELFPAY ==
[2019-04-30 08:24] LABS: Basophils # 0.1 K/mm3 (0-0.2); Basophils % 0.9 % (0.1-2.0); Eosinophils # 0.1 K/mm3 (0.0-0.4); Eosinophils % 1.4 % (0.1-12.0); Hematocrit 43.1 % (37.0-47.0); Hemoglobin 14.1 g/dL (12.2-16.2); Lymphocytes # 2.5 K/mm3 (0.7-4.5); Lymphocytes % 26.5 % (10-50); Mean Corpuscular HGB Conc 32.7 g/dL (31.8-35.4); Mean Corpuscular Hemoglobin 27.9 pg (27.0-31.2); Mean Corpuscular Volume 85.2 fl (81-99); Mean Platelet Volume 7.5 fl (7.4-10.4); Monocytes # 0.6 K/mm3 (0.1-1.0); Monocytes % 5.9 % (1.7-9.3); Neutrophils # 6.2 K/mm3 (1.8-7.8); Neutrophils % 65.3 % (37.0-80.0); Platelet Count 315 K/mm3 (142-424); Red Blood Count 5.07 M/mm3 (4.20-5.40); Red Cell Distribution Width 13.4 % (11.5-17.5); White Blood Count 9.5 K/mm3 (4.8-10.8)
[2019-04-30 09:28] LABS: Hemoglobin A1C 5.7 % (0.0-7.0)
[2019-04-30 09:39] LABS: Alanine Aminotransferase 16 U/L (12-78); Albumin Level 3.8 gm/dL (3.4-5.0); Albumin/Globulin Ratio 1.2 (1.1-1.8); Alkaline Phosphatase 74 U/L (46-116); Anion Gap 11.7 mEq/L (5-15); Aspartate Amino Transferase 13 U/L (15-37); Bilirubin,Total 0.5 mg/dL (0.2-1.0); Blood Urea Nitrogen 9 mg/dL (7-18); Carbon Dioxide 29 mmol/L (21.0-32.0); Chloride 104 mmol/L (98-107); Creatinine,Serum 1.02 mg/dL (0.55-1.02); Estimated Glomerular Filt Rate 60 ml/min (>60); GFR (African American) 73 ML/MIN (>60); Globulin 3.2 gm/dl (1.3-3.2); Glucose 92 mg/dL (74-106); Potassium 3.7 mmoL/L (3.5-5.1); Sodium 141 mmol/L (136-145); Thyroid Stimulating Hormone 2.57 uIU/ml (0.358-3.740)
== END ==
PROVIDERS: Visit Provider Nurse Practitioner Family
DX: R63.4 Abnormal weight loss (principal)
CPT/HCPCS: 36415; 80053; 83036; 84443; 85025

== ENCOUNTER → 2019-05-09 15:07 | Outpatient (CLI) | payer BC, SELFPAY ==
--- NOTE | 2019-05-09 15:20 | ECG_ITS ---
APPROVED REPORT Exam: Resting ECG HR:78 bpm ECG Measurements Heart Rate 78 AXES NM 136 P 23 QRSd 70 QRS 34 QT 360 T 43 QTc 410 <Conclusion> Normal sinus rhythm Low voltage QRS Late r wave progression - no changes over prior Abnormal ECG Electronically signed by : Luciano Farfan, 05/09/2019 15:30:23
[2019-05-09 16:00] LABS: Basophils # 0.1 K/mm3 (0-0.2); Basophils % 0.4 % (0.1-2.0); Eosinophils % 0.4 % (0.1-12.0); Hemoglobin 13.9 g/dL (12.2-16.2); Lymphocytes # 2.1 K/mm3 (0.7-4.5); Lymphocytes % 19.2 % (10-50); Mean Corpuscular HGB Conc 32.4 g/dL (31.8-35.4); Mean Corpuscular Hemoglobin 27.7 pg (27.0-31.2); Mean Corpuscular Volume 85.5 fl (81-99); Mean Platelet Volume 7.8 fl (7.4-10.4); Monocytes # 0.8 K/mm3 (0.1-1.0); Monocytes % 7.3 % (1.7-9.3); Neutrophils # 8.1 K/mm3 (1.8-7.8); Neutrophils % 72.6 % (37.0-80.0); Platelet Count 336 K/mm3 (142-424); Red Blood Count 5.03 M/mm3 (4.20-5.40); Red Cell Distribution Width 12.9 % (11.5-17.5); White Blood Count 11.1 K/mm3 (4.8-10.8)
[2019-05-09 16:16] LABS: Alanine Aminotransferase 14 U/L (12-78); Albumin Level 4.1 gm/dL (3.4-5.0); Albumin/Globulin Ratio 1.1 (1.1-1.8); Alkaline Phosphatase 82 U/L (46-116); Anion Gap 12.8 mEq/L (5-15); Aspartate Amino Transferase 13 U/L (15-37); Bilirubin,Total 0.5 mg/dL (0.2-1.0); Blood Urea Nitrogen 8 mg/dL (7-18); CKMB Relative Index 0.6 U/L (0-4.0); Calcium 8.9 mg/dL (8.5-10.1); Carbon Dioxide 29 mmol/L (21.0-32.0); Chloride 103 mmol/L (98-107); Creatine Kinase 161 U/L (26-192); Estimated Glomerular Filt Rate 62 ml/min (>60); GFR (African American) 75 ML/MIN (>60); Globulin 3.7 gm/dl (1.3-3.2); Glucose 84 mg/dL (74-106); Potassium 3.8 mmoL/L (3.5-5.1); Sodium 141 mmol/L (136-145); Total Protein,Serum 7.8 gm/dL (6.4-8.2); Troponin I < 0.02 ng/ml (0.00-0.06)
[2019-05-14 14:27] LABS: EBV Ab VCA, IgG >600.0 U/mL (0.0-17.9); EBV Ab VCA, IgM <36.0 U/mL (0.0-35.9); EBV Nuclear Antigen Ab, IgG >600.0 U/mL (0.0-17.9)
== END ==
PROVIDERS: PCP Family Medicine; Visit Provider Physician Assistant
DX: R07.9 Chest pain, unspecified (principal); R59.1 Generalized enlarged lymph nodes
CPT/HCPCS: 36415; 80053; 82550; 82553; 84484; 85025; 86664; 86665; 93005

== ENCOUNTER → 2019-06-21 08:18 | Outpatient (CLI) | payer BC, SELFPAY ==
--- NOTE | 2019-06-21 08:19 | MM_ITS ---
PROCEDURE: MM DIG SCREENING MAMM BI W/CAD Patient Age:39Y CLINICAL INDICATION: Routine Screening Mammogram Patient reports minimal palpable area at the right breast but area marked on skin. No hormones Family history. Maternal aunt with breast cancer age 45 COMPARISON: [facility] DIG MAMM-SCREEN [facility] from 05/25/2016 [facility] DIG MAMM-SCREEN [facility] W/CAD from 05/30/2017 [facility] MM Dig screening mamm BI w/CAD from 06/15/2018 TECHNIQUE: Standard CC and MLO images were obtained. R2 CAD reviewed. FINDINGS: Areas of moderately dense heterogeneous breast tissue seen at the central and upper outer quadrant of both breast but mammography is slightly limited these areas of heterogeneous density bilateral but Right breast Overlying seen far lateral right breast at 9-10 o'clock position. This is where the fibroglandular elements today and previous studies are mainly distributed and more evident but no unique mass seen here with standard mammogram views but at this palpable area should persist follow-up spot views and ultrasound would be appropriate to complement and augment of mammography. I see no discrete change here out in this region on today's study compared to several previous mammograms but but if the palpable area does persist a follow-up mammogram a 4-6 months recommended Left breast moderately dense heterogeneous breast tissue. There are some areas of mild asymmetry which I believe her merely due to overlapping shadows accentuated by today's technique. Suggest including a left left mammogram cc and MLO view when the patient returns in 4-6 months as well IMPRESSION: Moderately dense heterogeneous breast does somewhat decrease sensitivity of mammography. RIGHT BREAST No suspicious findings radiographically; but would suggest a follow-up right mammogram, with right breast ultrasound 4-6 months particularly, if the palpable area persist . If the palpable area right breast should increased clinically follow-up interval ultrasound suggested LEFT BREAST:. No suspicious findings There are a few areas slight accentuated density seen today which are most certainly due to summation shadows and technique; but would suggest including a left mammogram two-view when the patient returns in 4-6 months BI-RAD Category: 3 Probably Benign Finding Short Term Follow-up FOLLOW-UP: 4M -6 Month Follow-up mammogram bilateral Bilateral mammogram, with right breast ultrasound (attention to palpable area) (A letter has been sent to the patient regarding results of the study.) This Dictated by: Terry Jacinto MD 06/23/2019 11:35 Electronically signed by Terry Jacinto MD in [place] 06/27/2019 10:06
== END ==
PROVIDERS: PCP Family Medicine; Visit Provider Nurse Practitioner Obstetrics & Gynecology
DX: Z12.31 Encounter for screening mammogram for malignant neoplasm of breast (principal)
CPT/HCPCS: 77067

== ENCOUNTER → 2019-07-03 14:15 | Outpatient (CLI) | payer BC, SELFPAY ==
--- NOTE | 2019-07-03 14:16 | US_ITS ---
PROCEDURE: US BREAST RT COMPLETE CLINICAL INDICATION: US Right Breast- Abnormal Mammogram COMPARISON: MM DIG SCREENING MAMM BI W/CAD from 06/21/2019 FINDINGS: Patient reports palpable abnormality at 10 o'clock outer. Ultrasound performed of the right breast demonstrates a small hypoechoic nodule measuring 4 mm at 10 o'clock in the right breast. This has enhanced through transmission of sound with some low level internal echoes consistent with a complicated cyst. Nodes are present in the axilla. There is heterogeneous echodense fibroglandular tissue. IMPRESSION: 4 mm complicated cyst at 10 o'clock. No suspicious nodules apparent. Dictated by: Rajendra Saxena MD 07/12/2019 10:18 Electronically signed by Rajendra Saxena MD in [place] 07/12/2019 10:18
== END ==
PROVIDERS: PCP Physician Assistant; Visit Provider Nurse Practitioner Obstetrics & Gynecology
DX: R92.8 Other abnormal and inconclusive findings on diagnostic imaging of breast (principal)
CPT/HCPCS: 76641

== ENCOUNTER → 2019-07-04 09:03 | Outpatient (CLI) | payer BC, SELFPAY ==
[2019-07-04 09:09] LABS: Adenovirus F 40/41, stool Not Detected (NotDetected); Astrovirus Not Detected (NotDetected); Campylobacter Not Detected (NotDetected); Clostridium Difficile A/B, PCR Not Detected (NotDetected); Cryptosporidium Not Detected (NotDetected); Cyclospora Cayetanesis Not Detected (NotDetected); Entamoeba histolytica Not Detected (NotDetected); Enteroaggregative E coli Not Detected (NotDetected); Enteropathogenic E coli Not Detected (NotDetected); Enterotoxigenic E coli Not Detected (NotDetected); Giardia lamblia Not Detected (NotDetected); Norovirus Not Detected (NotDetected); Plesimonas Shigalloides, PCR Not Detected (NotDetected); Rotavirus A Not Detected (NotDetected); Salmonella, PCR Not Detected (NotDetected); Sapovirus Not Detected (NotDetected); Shiga-like toxin E coli Not Detected (NotDetected); Shigella Enterovasive E coli Not Detected (NotDetected); Vibrio Cholerae Not Detected (NotDetected); Vibrio, PCR Not Detected (NotDetected); Yersinia Entercolitica, PCR Not Detected (NotDetected)
== END ==
PROVIDERS: Visit Provider Nurse Practitioner Family
DX: R19.7 Diarrhea, unspecified (principal)
CPT/HCPCS: 87507

== ENCOUNTER 2019-07-08 11:40 | Observation (INO) ==
--- NOTE | 2019-07-08 12:10 | Emergency Department Note ---
[facility] Disposition Clinical Impression: Abdominal pain Qualifiers: Abdominal location: unspecified location Qualified Code(s): R10.9 - Unspecified abdominal pain Disposition: Still a Patient Condition on Discharge: Good Referrals: Van Huddleston MD [Primary Care Provider] - Medical Decision Making - Donald Inquiry Pt receiving controlled substance: No Donald was queried for this patient: No Vital Signs: 07/08/19 11:40 Temperature 98.4 F Temperature Source Temporal Artery Scan Pulse Rate [Radial] 110 H Respiratory Rate 18 Blood Pressure [Right Arm] 119/81 Blood Pressure Mean [Right Arm] 93 Blood Pressure Source [Right Arm] Automatic Cuff Blood Pressure Position [Right Arm] Sitting 02 Sat by Pulse Oximetry 98 Oxygen Delivery Method Room Air Orders (Tests/Meds): ORDERS Category Date Time Status Amylase Stat Lab 07/08/19 12:22 Received Complete Blood Count Auto Diff Stat Lab 07/08/19 12:22 Received Comprehensive Metabolic Panel Stat Lab 07/08/19 12:22 Received Lipase Stat Lab 07/08/19 12:22 Received Urinalysis and Microscopic Stat Lab 07/08/19 12:17 Ordered Urine , HCG Qual. Stat Lab 07/08/19 12:17 Ordered Medical Decision Narrative: Patient bent over crying with pain, reports that has been having abdominal pain that has continued to get worse and having swelling in her abdomen, Patient to be transferred to ER for further evaluation of abdominal pain. Patient transferred to room 10 [facility] HPI - General Stated complaint: stomach Pain Time Seen by Provider: 07/08/19 12:06 Mode of Arrival: Ambulatory Source of Information: Patient Limitations: No Limitations Description of Symptoms (Recalled from Triage Doc. 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 States she couldn't take the pain anymore HEENT Symptoms (Recalled from RN notes): No Resp Symptoms (Recalled from RN notes): No Skin Symptoms (Recalled from RN notes): No MS Symptoms (Recalled from RN notes): No Functional Status (Recalled from RN notes): wnl - History of Present Illness Provider Complaint: Patient states that she has been having severe abdominal pain that has continued to get worse since Tuesday with swelling in her abdomen States that today she couldn't even stand to touch her stomach for the pain and was crying with the pain States that "it even hurts to walk" - Related Data Home Medications Medication Instructions Recorded Confirmed Oxycodone HCl/Acetaminophen 1 tab PO Q4-6H PRN 08/26/18 07/02/19 [Percocet 5/325mg tablet] Amlodipine Besylate 10 mg PO DAILY 08/27/18 07/02/19 Atorvastatin Calcium [Atorvastatin 10 mg PO HS 08/27/18 07/02/19 10mg Tab] Fluticasone Propionate 1 spray NS DAILY 08/27/18 07/02/19 Levocetirizine Dihydrochloride 5 mg PO DAILY 08/27/18 07/02/19 Montelukast Sodium [Montelukast 10 mg PO HS 08/27/18 07/02/19 10mg Tab] Omeprazole [Omeprazole 20mg 20 mg PO DAILY 08/27/18 07/02/19 Capsule] apple cider vinegar 600 mg capsule mg PO cap 07/02/19 07/02/19 bupropion HCl SR 100 mg tablet,12 PO #90 each 07/02/19 07/02/19 hr sustained-release cetirizine 10 mg tablet 10 mg PO DAILY 07/02/19 07/02/19 diphenhydramine 25 mg capsule 25 mg PO BID PRN cap 07/02/19 07/02/19 hyoscyamine sulfate 0.125 mg tablet 0.125 mg PO QID 07/02/19 07/02/19 lactobacillus combination no.8 3 3,000 mmu cells PO DAILY 07/02/19 07/02/19 billion cell capsule levocetirizine 5 mg tablet 5 mg PO DAILY 07/02/19 07/02/19 levocetirizine 5 mg tablet 5 mg PO DAILY 07/02/19 07/02/19 linaclotide 72 mcg capsule 72 mcg PO DAILY 07/02/19 07/02/19 methylcellulose (laxative) 500 mg 500 mg PO DAILY 07/02/19 07/02/19 tablet montelukast 10 mg tablet 10 mg PO QPM 07/02/19 07/02/19 omega-3 fatty acids 1,000 mg 1,000 mg PO DAILY 07/02/19 07/02/19 capsule ondansetron 4 mg disintegrating PO #60 tab 07/02/19 07/02/19 tablet phenazopyridine 100 mg tablet 100 mg PO TID PRN 07/02/19 07/02/19 polyethylene glycol 3350 17 gram 17 g PO BID 07/02/19 07/02/19 oral powder packet sacrosidase 8,500 unit/mL oral PO #354 ml 07/02/19 07/02/19 solution Previous Rx's Medication Instructions Recorded terconazole 0.8 % vaginal cream 1 appful VAGINAL QHS 3 Days #20 g 09/25/18 fluconazole 150 mg tablet 150 mg PO Q3D 0 Days #2 tab 12/01/18 nitrofurantoin 100 mg PO BID 10 Days #20 cap 12/01/18 monohydrate/macrocrystals 100 mg capsule phenazopyridine 100 mg tablet 100 mg PO TID 3 Days #9 tab 03/09/19 hydrocortisone 1 % topical cream 1 applic TOPICAL QHS #28 g 07/02/19 Allergies Allergy/AdvReac Type Severity Reaction Status Date / Time grape Allergy Mild UNKNOWN Verified 07/02/19 11:13 walnut Allergy Mild UNKNOWN Verified 07/02/19 11:13 bupropion [From ZYBAN] Allergy Unknown -- Verified 07/02/19 11:13 roche Allergy Unknown Verified 07/02/19 11:13 methylprednisolone Allergy Unknown -- Verified 07/02/19 11:13 [METHYLPREDNISOLONE] - Worker's Comp Is this a Worker's Comp case?: No [facility] History - Hepatitis A Screen Drug use history?: No High risk sexual behaviors?: No History of sexually transmitted infection?: No Currently employed?: No Childcare worker?: No Do you have indoor plumbing?: Yes Do you have electricity?: Yes Attestation statement:: This patient has been screened for Hepatitis A risk factors. I have reviewed the patient's past medical history: Yes Medical History: Reports:: Depression, Gastroesophageal Reflux Disease(GERD), H yperlipidemia, Hypertension Denies:: Anxiety, Asthma, Cancer, Diabetes Mellitus Type 1, Diabetes Mellitus Type 2, Gastrointestinal Bleed, Internal Pacemaker, Lung Disease, Migraine, MRSA, Renal Disease, Seizures, Ulcer Other Medical History: Reports: Other. Denies: Blood Transfusion Reaction Laterality Cases: Bilateral: Tonsillectomy, Other Other Surgeries: Yes: Dilation and Curettage, Tubal Ligation. No: Pacemaker Amputation: No Fractures: No Comment: sebaceous cyst removal 2015 - Social History Educational Level: Completed High School Smoking Status: Former smoker Tobacco Type: cigarettes Alcohol Intake: never Substance Use Type: denies use Occupational Status: employed Housing: house Household Members: spouse - Psychiatric History Pschychiatric History:: Reports:: Depression Denies:: Anxiety Family Hx:: Cancer, Coronary Artery Disease, Diabetes, Heart Attack, Hyperlipidemia, Hypertension RESOURCE RECOVERY ENGINEER history: No RESOURCE RECOVERY ENGINEER history ROS Obtained: Yes All systems reviewed & no additional complaints, Yes Systems reviewed as appropriate & no additional complaints - Gastrointestinal Gastrointestingal: Reports: abdominal pain, bloating, diarrhea. Denies: vomiting Comments: Small amount of mucous diarrhea Physical Exam - General General appearance: alert, other (Patient alert crying, bent over with pain) - Respiratory Respiratory exam: Present: normal lung sounds bilaterally. Absent: respiratory distress - Cardiovascular Cardiovascular exam: Present: tachycardia - Abdominal Exam Abdominal exam: Present: guarding Abdominal tenderness: Present: severe Comment: Patient reports pain in her abdomen area, guarded abdomen when attempted to assess and did not want area touch When attempting to listen to abdomen, patient begin crying profusely - Neurological Exam Neurological exam: Present: alert, oriented X3
--- NOTE | 2019-07-08 12:24 | Emergency Department Note ---
ED Disposition Clinical Impression: Abdominal pain Qualifiers: Abdominal location: unspecified location Qualified Code(s): R10.9 - Unspecified abdominal pain Disposition: Admitted as Observation Condition on Discharge: Good Referrals: Van Huddleston MD [Primary Care Provider] - - Critical Care Critical Care Time: No Attestation: On 07/08/19, the high probability of a clinically significant, sudden or life threatening deterioration of the following system(s) required my full and direct attention, intervention and personal management. The time I documented below is in addition to time spent performing reported procedures but includes the following listed in this critical care notation. Medical Decision Making - Donald Inquiry Pt receiving controlled substance: No Donald was queried for this patient: Yes Reference #:: [id number] Comment: 2 rxs. last rx 8 norco 10/19/18. Vital Signs: 07/08/19 11:40 Temperature 98.4 F Temperature Source Temporal Artery Scan Pulse Rate [Radial] 110 H Respiratory Rate 18 Blood Pressure [Right Arm] 119/81 Blood Pressure Mean [Right Arm] 93 Blood Pressure Source [Right Arm] Automatic Cuff Blood Pressure Position [Right Arm] Sitting 02 Sat by Pulse Oximetry 98 Oxygen Delivery Method Room Air - Lab Data Lab Results 07/08/19 12:22: WBC 16.2 H, RBC 5.21, Hgb 15.1, Hct 44.8, MCV 85.9, MCH 29.0, MCHC 33.7, RDW 13.7, Plt Count 360, MPV 8.8, Neut % (Auto) 78.3, Lymph % (Auto) 13.4, Sweet [place] % (Auto) 4.6, Eos % (Auto) 3.3, Baso % (Auto) 0.4, Neut # (Auto) 12.7 H, Lymph # (Auto) 2.2, Sweet [place] # (Auto) 0.7, Eos # (Auto) 0.5 H, Baso # (Auto) 0.1, Total Counted 100, Neutrophils % (Manual) 75, Band Neutrophils % 1.0, Lymphocytes % (Manual) 19, Monocytes % (Manual) 3, Eosinophils % (Manual) 2, Platelet Estimate Normal, RBC Morphology Normal 07/08/19 12:22: Sodium 138, Potassium 3.5, Chloride 103, Carbon Dioxide 27, Anion Gap 11.5, BUN 7, Creatinine 0.85, Estimated Creat Clear 102, Estimated GFR 74, Est GFR ( Amer) 90, Glucose 101, Calcium 9.3, Total Bilirubin 0.5, AST 12 L, ALT 16, Alkaline Phosphatase 71, Total Protein 7.6, Albumin 4.1, Globulin 3.5 H, Albumin/Globulin Ratio 1.2, Amylase 30, Lipase 82 07/08/19 12:22: Urine Color Yellow, Urine Appearance Clear, Urine pH 8.5, Ur Specific Noti 1.010, Urine Protein Negative, Urine Glucose (UA) Negative, Urine Ketones Negative, Urine Blood Negative, Urine Nitrate Negative, Urine Bilirubin Negative, Urine Urobilinogen 1.0, Ur Leukocyte Esterase Negative, Urine WBC Occasional, Ur Squamous Epith Cells 10-20, Urine Bacteria 1+, Urine Mucus Trace 07/08/19 12:22: Urine HCG, Qual Negative 07/08/19 12:22: Stl Aeromonas (PCR) Not detected, Stl C. cayetanensis PCR Not detected, Stool Rotavirus (PCR) Not detected, Stl Adenov F 40/41 PCR Not detected, Stool Astrovirus (PCR) Not detected, Stool Campylobacter PCR Not d etected, Stl C.difficile Tox PCR Not detected, Stool Cryptosporidium PCR Not detected, Stl E.coli Shiga Tox PCR Not detected, Stool E coli O157 PCR Not detected, Stl Enterotoxigenic E PCR Not detected, Stool EPEC (PCR) Not detected, Stool EAEC (PCR) Not detected, Stl E. histolytica PCR Not detected, Stool Giardia Lamblia PCR Not detected, Stool Salmonella PCR Not detected, Stool Sapovirus (PCR) Not detected, Stl P. shigelloides PCR Not detected, Stl Shigella/EIEC PCR Not detected, St Y.enterocolitica PCR Not detected, Stool Vibrio (PCR) Not detected, Stl Vibrio cholerae PCR Not detected, Stl Norovirus GI/GII PCR Not detected Result diagrams: 07/08/19 12:22 07/08/19 12:22 Orders (Tests/Meds): ED MEDICATIONS Discontinued Medications Generic Name Dose Route Start Last Admin Trade Name Freq PRN Reason Stop Dose Admin Diatrizoate Meglum/Diatrizoate Sod 30 ml 07/08/19 12:48 07/08/19 12:55 Gastrografin 66%-10% 30ml PO 07/08/19 12:49 30 ml ONCE ONE Administration Sodium Chloride 1,000 mls @ 999 mls/hr 07/08/19 13:00 07/08/19 12:58 Sod Chlor 0.9% 1000ml Bag IV 07/08/19 14:00 999 mls/hr .Q1H1M JOSY Administration Ioversol 75 ml 07/08/19 14:34 07/08/19 14:35 Rad-Optiray 350 100ml Vial IV 07/08/19 14:35 75 ml ONCE ONE Administration Protocol Ketorolac Tromethamine 30 mg 07/08/19 13:14 07/08/19 13:20 Toradol 30mg/Ml Vial IV 07/08/19 13:15 30 mg ONCE ONE Administration Sodium Chloride 10 ml 07/08/19 14:34 07/08/19 14:35 Rad-Saline Flush 10ml Syringe IV 07/08/19 14:35 10 ml ONCE ONE Administration - CT Data CT Scan: Abdomen, Pelvis Time Received: 15:[address] Reviewed: Yes: I have viewed the radiologist's interpretation Findings Narrative: FINDINGS: Lower thorax: No acute finding ABDOMEN: Liver: No masses or biliary dilatation. The Common Duct: Upper normal caliber measuring up to 7 mm. Best seen on coronal image 32. No stones evident here Pancreas: Unremarkable on today's post-contrast study but again the common duct the Spleen: unremarkable Adrenals: unremarkable tract. Kidneys/ureters: unremarkable. Normal enhancing kidneys bilaterally. PELVIS: Right and left ovary appear satisfactory with each measure up to 3 cm in size with both containing likely cyst. Larger right ovarian likely follicular cyst right measures up to 18 mm.. No free fluid cul-de-sac. Moderate endometrial stripe at normal size size uterus. Urinary bladder is unremarkable no calculi. phlebolith right pelvic basin again noted-. Unchanged.. GI TRACT. Large bowel. Increase, generous amount stool is seen throughout the entire colon. Suggest of mild/moderate constipation.. The most prominent stool is seen at the right colon and cecum cecum extends to resides just superior to the bladder in the anterior mid right pelvis... Upper normal wall thickening is seen portions of sigmoid colon of may reflect lack of distension in similar of but difficult to totally exclude a colitis-favor unlikely without some liquid stool or other findings Terminal ileum appears normal. Appendix the is normal. Best seen on coronal image 31, 32 Small bowel. No oral contrast is moving through the entire small bowel and has reached the right colon but small bowel normal caliber no wall thickening or significant findings. Stomach appears normal contrast filled but duodenal loop unremarkable the the Peritoneum: No abnormal fluid collections. No obvious inflammatory changes. No free air. Lymph nodes: No significant enlarged enlarged lymph nodes apparent. Vasculature: No evidence of abdominal aortic aneurysm. Bones: No acute fracture but no lesions but degenerative disc changes since and spondylosis L5/S1 facet arthropathy at this level as but [id number] bilateral foraminal encroachment but IMPRESSION: No discrete nor prominent acute findings in the abdomen and pelvis No discrete focal inflammatory process Increased solid stool throughout large bowel the observed today,-suggest mild/moderate constipation. Upper normal wall thickness sigmoid colon-more likely reflecting lack of distension. Less likely colitis. common duct upper normal caliber. No stones evident A few small scattered retroperitoneal and mesenteric nodes unimpressive and appear stable. No significant adenopathy nor mass Dictated by: Terry Jacinto MD 07/08/2019 15:18 Electronically signed by Terry Jacinto MD in [place] 07/08/2019 15:18 - Physician Consults Physician Consulted: [place] Time: 15:46 Reason -: Admission Comment/Response: Agrees to admit the patient to the hospital. We discussed the patient's clinical information, including history, exam, laboratory and radiology results and ED course. Per hospital procedure, I will write temporary bridge inpatient orders on the patient. Specific orders requested by the admitting physician: Admit to observation, gastroenterology consult. Tylenol, Toradol, Bentyl for pain. Medical Decision Narrative: Reviewed previous records. The last endoscopy and colonoscopy on record here is 06/26/[address] Sears. This predates her current symptomatology. She says she has not had any other endoscopies or colonoscopies at any other institution. Most recent CT abdo/pelvis: FINDINGS: The lung bases are clear. Liver, gallbladder, spleen, adrenal glands, pancreas, and kidneys have an unremarkable appearance. There are few scattered small retroperitoneal lymph nodes are not significantly changed Unremarkable appendix. No intestinal obstruction or free air is evident. There is thickening of the transverse and descending colon which may be due to nondistention or colitis. There is a small amount of fluid in the pelvis. There are degenerative changes at the lumbosacral junction. There is a tiny umbilical hernia containing fat. IMPRESSION: 1. Thickening of the transverse and descending colon which may be due to nondistention or colitis. 2. Otherwise negative CT abdomen and pelvis Dictated By: Rajendra Saxena MD Signed By: <Electronically signed by Rajendra Saxena MD in [place]> 10/19/18 1618 Most recent hepatobiliary scan: FINDINGS: Homogeneous activity is present within the hepatic parenchyma. Activity is present in the gallbladder by 30 minutes. Activity is present in the small bowel by 30 minutes. The gallbladder ejection fraction is calculated to be 90% IMPRESSION: Unremarkable hepatobiliary scan and gallbladder ejection fraction. No evidence of common or cystic duct obstruction with normal gallbladder ejection fraction Dictated By: Rajendra Saxena MD Signed By: <Electronically signed by Rajendra Saxena MD in [place]> 10/19/18 1455 Most recent abdo US: IMPRESSION:...... 1. Gallbladder: No discrete stones. Minimal sludge with Small polyp 2. Liver no focal lesion. No bili ductal dilatation. . upper normal to perhaps very slight increase echogenicity about portal triads at liver.. Nonspecific observation warrants correlation with LFTs.. Can be normal. . Dictated By: Parth Jacinto Signed By: <Electronically signed by Parth Jacinto in [place]> 10/10/18 1108 General Adult HPI - General Stated complaint: stomach Pain Time Seen by Provider: 07/08/19 12:06 Mode of Arrival: Ambulatory Source of Information: Patient Limitations: No Limitations Description of Symptoms (Recalled from ER Triage Doc. 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 States she couldn't take the pain anymore - History of Present Illness HPI narrative: Patient complains of abdominal pain and diarrhea, chronic with exacerbation. She states that her problems began in August. She had had a tonsillectomy in July and then in August developed severe abdominal pain and diarrhea. She says they initially thought she had C. difficile because she had just recently had tonsillectomy and antibiotics. She was hospitalized here. Since then she has had abdominal pain continuously every day as well as diarrhea. She was referred to gastroenterology. She said she had numerous stool samples that showed nothing, negative for C. difficile. She says she was initially told that there was nothing wrong with her and to take Metamucil and a laxative. She has had testing including CT scan of her abdomen and pelvis, ultrasound, upper and lower endoscopy by Dr. Sears at this hospital, and breath test for CSID. 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 She says that bc marks did absolutely nothing for her. She had to make some dietary changes, initially she could only eat a few things and then began introducing more foods back into her diet which seems to have exacerbated her problems. Last night she says that she decided she was going to eat whatever her ate and therefore ate foods for bitten on her diet and now her pain is severe. She wants to be tested to see if she has a bowel obstruction or any other problems going on. She also wants Dr. Huddleston contacted to see if she is admitted if she can see a cinnamon grinder sooner, possibly tomorrow, rather than calling an setting up an appointment. She says she has never had problems with vomit ing. She has no fever. Her abdomen is generalized around the mid abdomen all the way across. - Related Data Home Medications Medication Instructions Recorded Confirmed Amlodipine Besylate 10 mg PO DAILY 08/27/18 07/08/19 Atorvastatin Calcium [Atorvastatin 10 mg PO HS 08/27/18 07/08/19 10mg Tab] Levocetirizine Dihydrochloride 5 mg PO DAILY 08/27/18 07/08/19 Montelukast Sodium [Montelukast 10 mg PO HS 08/27/18 07/08/19 10mg Tab] Omeprazole [Omeprazole 20mg 20 mg PO DAILY 08/27/18 07/08/19 Capsule] apple cider vinegar 600 mg capsule 450 mg PO BID cap 07/02/19 07/08/19 bupropion HCl SR 100 mg tablet,12 100 mg PO BID #90 each 07/02/19 07/08/19 hr sustained-release cetirizine 10 mg tablet 10 mg PO DAILY 07/02/19 07/08/19 diphenhydramine 25 mg capsule 25 mg PO BID PRN cap 07/02/19 07/08/19 omega-3 fatty acids 1,000 mg 1,000 mg PO DAILY 07/02/19 07/08/19 capsule ondansetron 4 mg disintegrating 4 mg PO TID PRN #60 tab 07/02/19 07/08/19 tablet phenazopyridine 100 mg tablet 100 mg PO TID PRN 07/02/19 07/08/19 polyethylene glycol 3350 17 gram 17 g PO BID 07/02/19 07/08/19 oral powder packet Allergies Allergy/AdvReac Type Severity Reaction Status Date / Time grape Allergy Mild UNKNOWN Verified 07/02/19 11:13 walnut Allergy Mild UNKNOWN Verified 07/02/19 11:13 bupropion [From ZYBAN] Allergy Unknown -- Verified 07/02/19 11:13 roche Allergy Unknown Verified 07/02/19 11:13 methylprednisolone Allergy Unknown -- Verified 07/02/19 11:13 [METHYLPREDNISOLONE] [facility] History - Hepatitis A Screen Drug use history?: No High risk sexual behaviors?: No History of sexually transmitted infection?: No Currently employed?: No Childcare worker?: No Do you have indoor plumbing?: Yes Do you have electricity?: Yes Attestation statement:: This patient has been screened for Hepatitis A risk factors. I have reviewed the patient's past medical history: Yes Medical History: Reports:: Depression, Gastroesophageal Reflux Disease(GERD), Hyperlipidemia, Hypertension Denies:: Anxiety, Asthma, Cancer, Diabetes Mellitus Type 1, Diabetes Mellitus Type 2, Gastrointestinal Bleed, Internal Pacemaker, Lung Disease, Migraine, MRSA, Renal Disease, Seizures, Ulcer Other Medical History: Reports: Other. Denies: Blood Transfusion Reaction Laterality Cases: Bilateral: Tonsillectomy, Other Other Surgeries: Yes: Dilation and Curettage, Tubal Ligation. 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 Denies: vomiting - Genitourinary Female Genitourinary: Denies difficulty voiding Physical Exam - General General appearance: alert, anxious - Head Head exam: atraumatic, normocephalic - Eye Eye exam: Present: normal appearance, EOMI - ENT ENT exam: Present: mucous membranes moist - Neck Neck exam: Present: normal inspection, trachea midline - Chest Chest inspection: Present: normal inspection, symmetric chest wall rise - Respiratory Respiratory exam: Present: normal lung sounds bilaterally. Absent: respiratory distress - Cardiovascular Cardiovascular exam: Present: normal rhythm, tachycardia, normal heart sounds - Abdominal Exam Abdominal exam: Present: soft, tenderness, hyperactive bowel sounds. Absent: guarding, rebound, rigidity Abdominal tenderness: Present: diffuse - Extremities Exam Extremities exam: Present: normal inspection - Neurological Exam Neurological exam: Present: alert, oriented X3 - Psychiatric Psychiatric exam: Present: anxious - Skin Skin exam: Present: warm, dry
[2019-07-08 12:31] LABS: Basophils # 0.1 K/mm3 (0-0.2); Basophils % 0.4 % (0.1-2.0); Eosinophils # 0.5 K/mm3 (0.0-0.4); Eosinophils % 3.3 % (0.1-12.0); Hematocrit 44.8 % (37.0-47.0); Hemoglobin 15.1 g/dL (12.2-16.2); Lymphocytes # 2.2 K/mm3 (0.7-4.5); Lymphocytes % 13.4 % (10-50); Mean Corpuscular HGB Conc 33.7 g/dL (31.8-35.4); Mean Corpuscular Volume 85.9 fl (81-99); Mean Platelet Volume 8.8 fl (7.4-10.4); Microscopic, Urine URINE MICROSCOPIC (MICROSCOPIC); Monocytes # 0.7 K/mm3 (0.1-1.0); Monocytes % 4.6 % (1.7-9.3); Neutrophils # 12.7 K/mm3 (1.8-7.8); Neutrophils % 78.3 % (37.0-80.0); Platelet Count 360 K/mm3 (142-424); Red Blood Count 5.21 M/mm3 (4.20-5.40); Red Cell Distribution Width 13.7 % (11.5-17.5); White Blood Count 16.2 K/mm3 (4.8-10.8)
[2019-07-08 12:35] LABS: Appearance,Urine CLEAR (Clear); Bilirubin,Urine Negative (Negative); Blood, Urine Negative (Negative); Color,Urine YELLOW (Yellow); Glucose,Urine (UA) Negative (Negative); Ketones,Urine Negative (Negative); Leukocyte Esterase,Urine Negative (Negative); PH,Urine 8.5 (5.0-8.5); Protein,Urine Negative (Negative)
[2019-07-08 12:44] LABS: Bacteria,Urine 1+ /lpf; Mucus,Urine Trace /lpf; WBC,Urine Occasional #/hpf (0-3)
[2019-07-08 12:52] LABS: Albumin Level 4.1 gm/dL (3.4-5.0); Albumin/Globulin Ratio 1.2 (1.1-1.8); Anion Gap 11.5 mEq/L (5-15); Bilirubin,Total 0.5 mg/dL (0.2-1.0); Calcium 9.3 mg/dL (8.5-10.1); Globulin 3.5 gm/dl (1.3-3.2); Total Protein,Serum 7.6 gm/dL (6.4-8.2)
[2019-07-08 13:10] LABS: Eosinophils % 2 % (0-3); Lymphocytes % 19 % (10-50); Monocytes % 3 % (2-9); Neutrophils % 75 % (42-76); RBC Morphology Normal; Total Cells Counted 100
[2019-07-09 06:16] LABS: Basophils # 0.1 K/mm3 (0-0.2); Basophils % 0.6 % (0.1-2.0); Eosinophils # 0.4 K/mm3 (0.0-0.4); Hematocrit 40.2 % (37.0-47.0); Lymphocytes # 1.7 K/mm3 (0.7-4.5); Lymphocytes % 18.3 % (10-50); Mean Corpuscular HGB Conc 32.5 g/dL (31.8-35.4); Mean Corpuscular Volume 87.9 fl (81-99); Mean Platelet Volume 8.8 fl (7.4-10.4); Monocytes # 0.6 K/mm3 (0.1-1.0); Monocytes % 6.1 % (1.7-9.3); Neutrophils # 6.5 K/mm3 (1.8-7.8); Platelet Count 277 K/mm3 (142-424); Red Blood Count 4.57 M/mm3 (4.20-5.40); Red Cell Distribution Width 13.8 % (11.5-17.5); White Blood Count 9.1 K/mm3 (4.8-10.8)
[2019-07-09 06:29] LABS: Hemoglobin 13.1 g/dL (12.2-16.2)
--- NOTE | 2019-07-09 07:46 | Pharmacy Consult Notes ---
[facility] Pharmacy VTE Monitoring - Patient Demographics Admission date: 07/08/19 Report Date: 07/09/19 Time: 07:46 Allergies/Adverse Reactions: Patient Allergies grape Allergy (Mild, Verified 07/02/19 11:13) UNKNOWN walnut Allergy (Mild, Verified 07/02/19 11:13) UNKNOWN roche Allergy (Unknown, Verified 07/02/19 11:13) methylprednisolone [METHYLPREDNISOLONE] Allergy (Unknown, Verified 07/02/19 11:13) -- Height: 1.63 m Weight: 73.482 kg Patient Problems: Current Active Problems Abdominal pain (Acute) - VTE Risk Labs: VTE Related Lab Results Hgb 13.1 g/dL (12.2-16.2) D 07/09/19 05:55 Hct 40.2 % (37.0-47.0) 07/09/19 05:55 Plt Count 277 K/mm3 (142-424) 07/09/19 05:55 BUN 7 mg/dL (7-18) 07/08/19 12:22 Creatinine 0.85 mg/dL (0.55-1.02) 07/08/19 12:22 Estimated Creat Clear 102 mL/min (50-200) 07/08/19 12:22 Was VTE Risk Assessment Performed: Yes VTE Score: 0 VTE Risk Level: Very Low Risk - Prophylaxis VTE Prophylaxis Ordered?: Yes Types of VTE Prophylaxis: TEDS Knee High Location of Applied Device: Bilateral Lower Extremeties - VTE Diagnosis Confirmed Treatment or plan recommended: Continue Current Treatment
--- NOTE | 2019-07-09 09:07 | History & Physical Report ---
*Admission Date: 07/08/19 <Janae Plummer - 07/09/19 09:08> *Chief complaint: Abdominal pain <Janae Plummer - 07/09/19 09:28> *History of present illness: Ms. Lorenz is a 39-year-old female with a history of hypertension, depression and anxiety, multiple food allergies, and congenital sucraseIsomaltase deficiency who presented to [facility] emergency room yesterday a.m. after experiencing several days of worsening abdominal pain which she describes as intermittent cramping waves. She states her bowels have not moved in several days. For the past 2 days she has given herself suppositories. She is nauseated but never vomits. She feels bloated with frequent belching and passing of flatus. She states there about 6 foods that she can eat and drink and she decided one evening to eat Ukrainian fries and another carbohydrate. She immediately had worsening abdominal pain. With evaluation in the emergency room CT of the abdomen/pelvis showed no acute findings and no acute inflammatory process but did show mild to moderate constipation. White blood cell count was found to be elevated. She was given Toradol for her discomfort. She was then admitted for further evaluation and treatment with a GI consult. This a.m. she states she continues to have the abdominal discomfort. She has had 2 suppositories with a small amount of stool since admission. She continues to have abdominal cramping. Patient has had ongoing problems with diarrhea, constipation, and abdominal pain. She is followed by gastroenterology. Last GI office visit in May revealed that she was doing better with more regular normal stools. She was told to add some additional foods to her diet. When she did this she again began to have the abdominal cramping, diarrhea, and constipation. She would like some resolution. <Janae Plummer - 07/09/19 09:28> [facility] History Medical History: Reports:: Anxiety, Depression, Gastroesophageal Reflux Disease(GERD), Hyperlipidemia, Hypertension, MRSA Denies:: Asthma, Cancer, Diabetes Mellitus Type 1, Diabetes Mellitus Type 2, Gastrointestinal Bleed, Internal Pacemaker, Lung Disease, Migraine, Renal Disease, Seizures, Ulcer <Janae Plummer - 07/09/19 09:28> *Have you ever received a pneumonia vaccine?: No <Plummer,Janae - 07/09/19 09:08> *Have you received a flu vaccine this season?: No <Janae Plummer 07/09/19 09:08> Other Medical History: Reports: Other. Denies: Blood Transfusion Reaction <KavithaJanae 07/09/19 09:08> Comment:: Multiple food and environmental allergies; congenital sucraseisomaltase deficiency <PlummerJanae 07/09/19 09:28> Laterality Cases: Bilateral: Tonsillectomy, Other <KavithaJanae 07/09/19 09:08> Other Surgeries: Yes: Dilation and Curettage, Tubal Ligation. No: Pacemaker <PlummerJanae 07/09/19 09:08> Amputation: No <Plummer,Janae 07/09/19 09:08> Fractures: No <PlummerJanae 07/09/19 09:08> - *Social History Educational Level: Completed High School <PlummerJanae 07/09/19 09:08> Smoking Status: Former smoker <PlummerJanae 07/09/19 09:08> Tobacco Type: cigarettes <KavithaJanae 07/09/19 09:28> Alcohol Intake: never <KavithaJanae 07/09/19 09:08> Substance Use Type: denies use <PlummerJanae 07/09/19 09:08> *Occupational Status:: employed <KavithaJanae 07/09/19 09:08> Housing: house <KavithaJanae 07/09/19 09:08> Household Members: spouse <PlummerJanae 07/09/19 09:08> *Travel in the last 8 weeks: None <PlummerJanae 07/09/19 09:08> - Psychiatric History Pschychiatric History:: Reports:: Anxiety, Depression <Janae Plummer 07/09/19 09:28> Family Hx:: Cancer, Coronary Artery Disease, Diabetes, Heart Attack, Hyperlipidemia, Hypertension <Janae Plummer 07/09/19 09:08> [employer] history: No SPINNER [employer] history <KavithaJanae 07/09/19 09:08> Review of Systems - Constitutional Reports weight loss, Denies headache(s) <Janae Plummer 07/09/19 09:28> - Eyes Denies change in vision <Janae Plummer 07/09/19 09:28> - ENT Denies ear pain, Denies nasal congestion, Denies sore throat <Janae Plummer 07/09/19 09:28> - *Cardiovascular Reports irregular heart rhythm (Infrequent), Denies chest pain, Denies excessive sweating, Denies shortness of breath <Janae Plummer 07/09/19 09:28> - *Respiratory Denies chest congestion, Denies cough, Denies shortness of breath <Janae Plummer 07/09/19 09:28> - *Gastrointestinal Reports abdominal pain, Reports belching, Reports bloating, Reports change in bowel habits, Reports change in stools, Reports constipation, Reports cramping, Reports loose stools, Reports heartburn, Reports feeling full early, Reports excessive passing of gas, Reports loose stools, Reports nausea, Denies coffee ground vomit, Denies difficulty swallowing, Denies incontinent of stools, Denies vomiting blood, Denies bright, red blood in stools, Denies black, tarry stools, Denies vomiting <Janae Plummer 07/09/19 09:28> - *Musculoskeletal Denies joint pain <Janae Plummer 07/09/19 09:28> - *Neurologic Denies abnormal walking <Janae Plummer 07/09/19 09:28> Meds Home Medications Medication Instructions Recorded Confirmed Type Amlodipine Besylate 10 mg PO DAILY 08/27/18 07/09/19 History Atorvastatin Calcium [Atorvastatin 10 mg PO HS 08/27/18 07/09/19 History 10mg Tab] Levocetirizine Dihydrochloride 5 mg PO DAILY 08/27/18 07/09/19 History Montelukast Sodium [Montelukast 10 mg PO HS 08/27/18 07/09/19 History 10mg Tab] Omeprazole [Omeprazole 20mg 20 mg PO DAILY 08/27/18 07/09/19 History Capsule] apple cider vinegar 600 mg capsule 450 mg PO BID cap 07/02/19 07/09/19 History diphenhydramine 25 mg capsule 25 mg PO BID PRN cap 07/02/19 07/09/19 History omega-3 fatty acids 1,000 mg 1,000 mg PO DAILY 07/02/19 07/09/19 History capsule ondansetron 4 mg disintegrating 4 mg PO TID PRN #60 tab 07/02/19 07/09/19 History tablet phenazopyridine 100 mg tablet 100 mg PO TID PRN 07/02/19 07/09/19 History Fluticasone Propionate 2 spry IH DAILY 07/09/19 07/09/19 History Hyoscyamine Sulfate 0.125 mg PO Q4HP PRN 07/09/19 07/09/19 History L.acidoph,Paracasei, B.lactis 1 cap PO DAILY 07/09/19 07/09/19 History [Probiotic] Linaclotide [Linzess] 72 mcg PO DAILY 07/09/19 07/09/19 History Psyllium Husk [Metamucil] 660 gm PO DAILY 07/09/19 07/09/19 History Pumpkin Seed Extract/Soy Germ [Azo 2 mg PO DAILY 07/09/19 07/09/19 History Bladder Control Capsule] Sacrosidase [Sucraid] 2 ml PO DAILY 07/09/19 07/09/19 History buPROPion HCl [Wellbutrin 100mg 100 mg PO BIDP PRN 07/09/19 07/09/19 History Tablet] <[place]art,Van - 07/09/19 12:26> Allergies Allergy/AdvReac Type Severity Reaction Status Date / Time grape Allergy Mild UNKNOWN Verified 07/02/19 11:13 walnut Allergy Mild UNKNOWN Verified 07/02/19 11:13 roche Allergy Unknown Verified 07/02/19 11:13 methylprednisolone Allergy Unknown -- Verified 07/02/19 11:13 [METHYLPREDNISOLONE] <[place]art,Van - 07/09/19 12:26> Exam Vital signs and Labs for Last 24 Hours: Temp Pulse Resp BP Pulse Ox 98.0 F 66 16 123/78 100 07/09/19 08:00 07/09/19 08:00 07/09/19 08:00 07/09/19 08:00 07/09/19 08:00 Laboratory Results - last 24 hr 07/08/19 12:22: WBC 16.2 H, RBC 5.21, Hgb 15.1, Hct 44.8, MCV 85.9, MCH 29.0, MCHC 33.7, RDW 13.7, Plt Count 360, MPV 8.8, Neut % (Auto) 78.3, Lymph % (Auto) 13.4, [place] % (Auto) 4.6, Eos % (Auto) 3.3, Baso % (Auto) 0.4, Neut # (Auto) 12.7 H, Lymph # (Auto) 2.2, Florence # (Auto) 0.7, Eos # (Auto) 0.5 H, Baso # (Auto) 0.1, Total Counted 100, Neutrophils % (Manual) 75, Band Neutrophils % 1.0, Lymphocytes % (Manual) 19, Monocytes % (Manual) 3, Eosinophils % (Manual) 2, Platelet Estimate Normal, RBC Morphology Normal 07/08/19 12:22: Sodium 138, Potassium 3.5, Chloride 103, Carbon Dioxide 27, Anion Gap 11.5, BUN 7, Creatinine 0.85, Estimated Creat Clear 102, Estimated GFR 74, Est GFR ( Amer) 90, Glucose 101, Calcium 9.3, Total Bilirubin 0.5, AST 12 L, ALT 16, Alkaline Phosphatase 71, Total Protein 7.6, Albumin 4.1, Pat bulin 3.5 H, Albumin/Globulin Ratio 1.2, Amylase 30, Lipase 82 07/08/19 12:22: Urine Color Yellow, Urine Appearance Clear, Urine pH 8.5, Ur Specific [place] 1.010, Urine Protein Negative, Urine Glucose (UA) Negative, Urine Ketones Negative, Urine Blood Negative, Urine Nitrate Negative, Urine Bilirubin Negative, Urine Urobilinogen 1.0, Ur Leukocyte Esterase Negative, Urine WBC Occasional, Ur Squamous Epith Cells 10-20, Urine Bacteria 1+, Urine Mucus Trace 07/08/19 12:22: Urine HCG, Qual Negative 07/08/19 12:22: Stl Aeromonas (PCR) Not detected, Stl C. cayetanensis PCR Not detected, Stool Rotavirus (PCR) Not detected, Stl Adenov F 40/41 PCR Not detected, Stool Astrovirus (PCR) Not detected, Stool Campylobacter PCR Not detected, Stl C.difficile Tox PCR Not detected, Stool Cryptosporidium PCR Not detected, Stl E.coli Shiga Tox PCR Not detected, Stool E coli O157 PCR Not detected, Stl Enterotoxigenic E PCR Not detected, Stool EPEC (PCR) Not detected, Stool EAEC (PCR) Not detected, Stl E. histolytica PCR Not detected, Stool Giardia Lamblia PCR Not detected, Stool Salmonella PCR Not detected, Stool Andi virus (PCR) Not detected, Stl P. shigelloides PCR Not detected, Stl Shigella/EIEC PCR Not detected, St Y.enterocolitica PCR Not detected, Stool Vibrio (PCR) Not detected, Stl Vibrio cholerae PCR Not detected, Stl Norovirus GI/GII PCR Not detected 07/09/19 05:55: WBC 9.1 D, RBC 4.57, Hgb 13.1 D, Hct 40.2, MCV 87.9, MCH 28.6, MCHC 32.5, RDW 13.8, Plt Count 277, MPV 8.8, Neut % (Auto) 71.0, Lymph % (Auto) 18.3, Florence % (Auto) 6.1, Eos % (Auto) 4.0, Baso % (Auto) 0.6, Neut # (Auto) 6.5, Lymph # (Auto) 1.7, Florence # (Auto) 0.6, Eos # (Auto) 0.4, Baso # (Auto) 0.1 <Van Huddleston - 07/09/19 12:26> Temp Pulse Resp BP Pulse Ox 98.0 F 66 16 123/78 100 07/09/19 08:00 07/09/19 08:00 07/09/19 08:00 07/09/19 08:00 07/09/19 08:00 Laboratory Results - last 24 hr 07/08/19 12:22: WBC 16.2 H, RBC 5.21, Hgb 15.1, Hct 44.8, MCV 85.9, MCH 29.0, MCHC 33.7, RDW 13.7, Plt Count 360, MPV 8.8, Neut % (Auto) 78.3, Lymph % (Auto) 13.4, Florence % (Auto) 4.6, Eos % (Auto) 3.3, Baso % (Auto) 0.4, Neut # (Auto) 12.7 H, Lymph # (Auto) 2.2, Florence # (Auto) 0.7, Eos # (Auto) 0.5 H, Baso # (Auto) 0.1, Total Counted 100, Neutrophils % (Manual) 75, Band Neutrophils % 1.0, Lymphocytes % (Manual) 19, Monocytes % (Manual) 3, Eosinophils % (Manual) 2, Platelet Estimate Normal, RBC Morphology Normal 07/08/19 12:22: Sodium 138, Potassium 3.5, Chloride 103, Carbon Dioxide 27, Anion Gap 11.5, BUN 7, Creatinine 0.85, Estimated Creat Clear 102, Estimated GFR 74, Est GFR ( Amer) 90, Glucose 101, Calcium 9.3, Total Bilirubin 0.5, AST 12 L, ALT 16, Alkaline Phosphatase 71, Total Protein 7.6, Albumin 4.1, Globulin 3.5 H, Albumin/Globulin Ratio 1.2, Amylase 30, Lipase 82 07/08/19 12:22: Urine Color Yellow, Urine Appearance Clear, Urine pH 8.5, Ur Specific [place] 1.010, Urine Protein Negative, Urine Glucose (UA) Negative, Urine Ketones Negative, Urine Blood Negative, Urine Nitrate Negative, Urine Bilirubin Negative, Urine Urobilinogen 1.0, Ur Leukocyte Esterase Negative, Urine WBC Occasional, Ur Squamous Epith Cells 10-20, Urine Bacteria 1+, Urine Mucus Trace 07/08/19 12:22: Urine HCG, Qual Negative 07/08/19 12:22: Stl Aeromonas (PCR) Not detected, Stl C. cayetanensis PCR Not detected, Stool Rotavirus (PCR) Not detected, Stl Adenov F 40/41 PCR Not detected, Stool Astrovirus (PCR) Not detected, Stool Campylobacter PCR Not detected, Stl C.difficile Tox PCR Not detected, Stool Cryptosporidium PCR Not detected, Stl E.coli Shiga Tox PCR Not detected, Stool E coli O157 PCR Not det ected, Stl Enterotoxigenic E PCR Not detected, Stool EPEC (PCR) Not detected, Stool EAEC (PCR) Not detected, Stl E. histolytica PCR Not detected, Stool Giardia Lamblia PCR Not detected, Stool Salmonella PCR Not detected, Stool Sapovirus (PCR) Not detected, Stl P. shigelloides PCR Not detected, Stl Shigella/EIEC PCR Not detected, St Y.enterocolitica PCR Not detected, Stool Vibrio (PCR) Not detected, Stl Vibrio cholerae PCR Not detected, Stl Norovirus GI/GII PCR Not detected 07/09/19 05:55: WBC 9.1 D, RBC 4.57, Hgb 13.1 D, Hct 40.2, MCV 87.9, MCH 28.6, MCHC 32.5, RDW 13.8, Plt Count 277, MPV 8.8, Neut % (Auto) 71.0, Lymph % (Auto) 18.3, Florence % (Auto) 6.1, Eos % (Auto) 4.0, Baso % (Auto) 0.6, Neut # (Auto) 6.5, Lymph # (Auto) 1.7, [place] # (Auto) 0.6, Eos # (Auto) 0.4, Baso # (Auto) 0.1 <Janae Plummer - 07/09/19 09:08> I & O for Last 24 hours: Intake & Output 07/06/19 07/07/19 07/08/19 07/09/19 23:59 23:59 23:59 23:59 Intake Total 120 / 120 1631 / 1631 Balance 120 / 120 1631 / 1631 Weight 162 lb 162 lb 0.001 oz <Van Huddleston - 07/09/19 12:26> Intake & Output 07/06/19 07/07/19 07/08/19 07/09/19 11:59 11:59 11:59 11:59 Intake Total 1751 / 1751 Balance 1751 / 1751 Weight 165 lb 162 lb 0.001 oz <Janae Plummer - 07/09/19 09:08> Radiology Reports for the Last 24 Hours: 07/08/2019 CT of the abdomen/pelvis IMPRESSION: No discrete nor prominent acute findings in the abdomen and pelvis No discrete focal inflammatory process Increased solid stool throughout large bowel the observed today,-suggest mild/moderate constipation. Upper normal wall thickness sigmoid colon-more likely reflecting lack of distension. Less likely colitis. common duct upper normal caliber. No stones evident A few small scattered retroperitoneal and mesenteric nodes unimpressive and appear stable. No significant adenopathy nor mass <Janae Plummer 07/09/19 09:08> - Constitutional no acute distress <Janae Plummer 07/09/19 09:28> - *Routine HEENT Exam Head: Present: normocephalic, atraumatic <Janae Plummer 07/09/19 09:28> Eye: Present: PERRL <Janae Plummer 07/09/19 09:28> ENT: Present: mucous membranes moist, oropharynx clear, dentition normal <Janae Plummer 07/09/19 09:28> - *Routine Neck Exam Present: supple. Absent: carotid bruit, lymphadenopathy, thyromegaly < [facility] 09:28> - *Routine Respiratory Exam Present: CTA bilaterally (Anteriorly and posteriorly) <[facility] 07/09/19 09:28> - *Routine Cardiovascular Exam Present: RRR <[facility] 07/09/19 09:28> - *Routine Abdominal Exam Present: soft, tenderness <[facility] 07/09/19 09:28> Comments: Hyperactive bowel sounds <[facility] 07/09/19 09:28> - *Routine Extremities Exam Absent: edema, calf tenderness <[facility] 07/09/19 09:28> - *Routine Neurological Exam Present: alert, oriented X3 <[facility] 07/09/19 09:28> Assessment and Plan (1) Abdominal pain Current visit: Yes Status: Acute Qualifiers: Abdominal location: unspecified location Qualified Code(s): R10.9 - Unspecified abdominal pain Category: Medical Code(s): R10.9 - Unspecified abdominal pain (2) Sucrase-isomaltase deficiency Current visit: Yes Status: Chronic Category: Medical Code(s): E74.31 - Sucrase-isomaltase deficiency (3) Multiple food allergies Current visit: Yes Status: Chronic Category: Medical Code(s): Z91.018 - Allergy to other foods (4) Dehydration Current visit: No Status: Acute Category: Medical Code(s): E86.0 - Dehydration (5) Leukocytosis Current visit: No Status: Acute Category: Medical Code(s): D72.829 - Elevated white blood cell count, unspecified (6) Hypertension Current visit: No Status: Chronic Category: Medical Code(s): I10 - Essential (primary) hypertension (7) Constipation Current visit: Yes Status: Acute Category: Medical Code(s): K59.00 - Constipation, unspecified <[place]art,Van - 07/09/19 12:26> (1) Abdominal pain Current visit: Yes Status: Acute Qualifiers: Abdominal location: unspecified location Qualified Code(s): R10.9 - Unspecified abdominal pain Category: Medical Code(s): R10.9 - Unspecified abdominal pain (2) Sucrase-isomaltase deficiency Current visit: Yes Status: Chronic Category: Medical Code(s): E74.31 - Sucrase-isomaltase deficiency (3) Multiple food allergies Current visit: Yes Status: Chronic Category: Medical Code(s): Z91.018 - Allergy to other foods (4) Dehydration Current visit: No Status: Acute Category: Medical Code(s): E86.0 - Dehydration (5) Leukocytosis Current visit: No Status: Acute Category: Medical Code(s): D72.829 - Elevated white blood cell count, unspecified (6) Hypertension Current visit: No Status: Chronic Category: Medical Code(s): I10 - Essential (primary) hypertension (7) Constipation Current visit: Yes Status: Acute Category: Medical Code(s): K59.00 - Constipation, unspecified <Janae Plummer - 07/09/19 09:10> - Assessment and plan all Dx Assessment and Plan for all problems:: Saw patient, agree with above note. <Van Huddleston - 07/09/19 12:26> White blood cell count is normal today. Stool PCR is negative. Continue with IV fluids. GI consult today. <Janae Plummer - 07/09/19 09:28>
--- NOTE | 2019-07-09 12:50 | Consult Report ---
*Admission Date: 07/08/19 *Reason for consult:: Abdominal pain/constipation *History of present illness: This is a 39-year-old female with a history of hypertension, depression and anxiety, multiple food allergies, and congenital sucraseIsomaltase deficiency and chronic constipation who is known by me and has been seen in the office previously. She presented to [facility] emergency room y esterday a.m. after experiencing several days of worsening abdominal pain and constipation. She had been doing well on Linzess 72 mcg daily with Citrucel fiber a few times per week for her chronic constipation. She was having some bloating belching and gassiness and was diagnosed with a mild sucrase isomaltase deficiency. She was started on a low sucrose and isomaltose diet and started Sucraid. She developed worsening constipation with the Sucraid. She also reports that her bloating belching gassiness and abdominal discomfort had been initially doing well with cessation of starches in her diet but then she ate some potato chips and Pashto fries and other starchy foods and developed wors ening abdominal pain. She had been giving herself suppositories at home. Reports no bowel movement for couple days prior to admission. She has some intermittent nausea but no vomiting and no fever. CT of the abdomen/pelvis showed no acute findings and no acute inflammatory process but did show mild to moderate constipation with some portions of the sigmoid colon showing some wall thickening but no liquid stools or other findings to suggest colitis. Also showed a couple of large ovarian cysts. White blood cell count was found to be elevated above 16 on admission but repeat labs this morning show that it normalized. Since admission she has had Toradol for the abdominal discomfort and was given 2 suppositories with a small amount of stool since admission. He will has quite a bit of abdominal discomfort but finds that she now has an appetite. [facility] History Medical History: Reports:: Anxiety, Depression, Gastroesophageal Reflux Disease(GERD), Hyperlipidemia, Hypertension, MRSA Denies:: Asthma, Cancer, Diabetes Mellitus Type 1, Diabetes Mellitus Type 2, Gastrointestinal Bleed, Internal Pacemaker, Lung Disease, Migraine, Renal Disease, Seizures, Ulcer *Have you ever received a pneumonia vaccine?: No *Have you received a flu vaccine this season?: No Other Medical History: Reports: Other. Denies: Blood Transfusion Reaction Laterality Cases: Bilateral: Tonsillectomy, Other Other Surgeries: Yes: Dilation and Curettage, Tubal Ligation. No: Pacemaker Amputation: No Fractures: No - *Social History Educational Level: Completed High School Smoking Status: Former smoker Tobacco Type: cigarettes Alcohol Intake: never Substance Use Type: denies use *Occupational Status:: employed Housing: house Household Members: spouse *Travel in the last 8 weeks: None - Psychiatric History Pschychiatric History:: Reports:: Anxiety, Depression Family Hx:: Cancer, Coronary Artery Disease, Diabetes, Heart Attack, Hyperlipidemia, Hypertension DISPATCHER MAINTENANCE history: No DISPATCHER MAINTENANCE history Review of Systems - Constitutional Denies fatigue, Denies fever(s), Denies night sweats - Eyes Denies blurry vision, Denies pain, Denies sensitivity to light - ENT Denies abnormal hearing, Denies dizziness, Denies difficulty swallowing, Denies hoarseness - *Cardiovascular Denies chest pain, Denies shortness of breath, Denies leg swelling - *Respiratory Denies chest congestion, Denies cough, Denies shortness of breath, Denies wheezing - *Gastrointestinal Reports abdominal pain, Reports belching, Reports bloating, Reports constipation, Reports cramping, Reports loose stools, Reports nausea, Denies change in bowel habits, Denies incontinent of stools, Denies bright, red blood in stools, Denies vomiting - *Neurologic Denies abnormal walking, Denies headache(s) Meds Home Medications Medication Instructions Recorded Confirmed Type Amlodipine Besylate 10 mg PO DAILY 08/27/18 07/09/19 History Atorvastatin Calcium [Atorvastatin 10 mg PO HS 08/27/18 07/09/19 History 10mg Tab] Levocetirizine Dihydrochloride 5 mg PO DAILY 08/27/18 07/09/19 History Montelukast Sodium [Montelukast 10 mg PO HS 08/27/18 07/09/19 History 10mg Tab] Omeprazole [Omeprazole 20mg 20 mg PO DAILY 08/27/18 07/09/19 History Capsule] apple cider vinegar 600 mg capsule 450 mg PO BID cap 07/02/19 07/09/19 History diphenhydramine 25 mg capsule 25 mg PO BID PRN cap 07/02/19 07/09/19 History omega-3 fatty acids 1,000 mg 1,000 mg PO DAILY 07/02/19 07/09/19 History capsule ondansetron 4 mg disintegrating 4 mg PO TID PRN #60 tab 07/02/19 07/09/19 History tablet phenazopyridine 100 mg tablet 100 mg PO TID PRN 07/02/19 07/09/19 History Fluticasone Propionate 2 spry IH DAILY 07/09/19 07/09/19 History Hyoscyamine Sulfate 0.125 mg PO Q4HP PRN 07/09/19 07/09/19 History L.acidoph,Paracasei, B.lactis 1 cap PO DAILY 07/09/19 07/09/19 History [Probiotic] Linaclotide [Linzess] 72 mcg PO DAILY 07/09/19 07/09/19 History Psyllium Husk [Metamucil] 660 gm PO DAILY 07/09/19 07/09/19 History Pumpkin Seed Extract/Soy Germ [Azo 2 mg PO DAILY 07/09/19 07/09/19 History Bladder Control Capsule] Sacrosidase [Sucraid] 2 ml PO DAILY 07/09/19 07/09/19 History buPROPion HCl [Wellbutrin 100mg 100 mg PO BIDP PRN 07/09/19 07/09/19 History Tablet] Allergies Allergy/AdvReac Type Severity Reaction Status Date / Time grape Allergy Mild UNKNOWN Verified 07/02/19 11:13 walnut Allergy Mild UNKNOWN Verified 07/02/19 11:13 roche Allergy Unknown Verified 07/02/19 11:13 methylprednisolone Allergy Unknown -- Verified 07/02/19 11:13 [METHYLPREDNISOLONE] Exam Vital signs and Labs for Last 24 Hours: Temp Pulse Resp BP Pulse Ox 98.0 F 66 16 123/78 100 07/09/19 08:00 07/09/19 08:00 07/09/19 08:00 07/09/19 08:00 07/09/19 08:00 Laboratory Results - last 24 hr 07/08/19 12:22: WBC 16.2 H, RBC 5.21, Hgb 15.1, Hct 44.8, MCV 85.9, MCH 29.0, MCHC 33.7, RDW 13.7, Plt Count 360, MPV 8.8, Neut % (Auto) 78.3, Lymph % (Auto) 13.4, [place] % (Auto) 4.6, Eos % (Auto) 3.3, Baso % (Auto) 0.4, Neut # (Auto) 12.7 H, Lymph # (Auto) 2.2, [place] # (Auto) 0.7, Eos # (Auto) 0.5 H, Baso # (Auto) 0.1, Total Counted 100, Neutrophils % (Manual) 75, Band Neutrophils % 1.0, Lymphocytes % (Manual) 19, Monocytes % (Manual) 3, Eosinophils % (Manual) 2, Platelet Estimate Normal, RBC Morphology Normal 07/08/19 12:22: Sodium 138, Potassium 3.5, Chloride 103, Carbon Dioxide 27, Anion Gap 11.5, BUN 7, Creatinine 0.85, Estimated Creat Clear 102, Estimated GFR 74, Est GFR ( Amer) 90, Glucose 101, Calcium 9.3, Total Bilirubin 0.5, AST 12 L, ALT 16, Alkaline Phosphatase 71, Total Protein 7.6, Albumin 4.1, Globulin 3.5 H, Albumin/Globulin Ratio 1.2, Amylase 30, Lipase 82 07/08/19 12:22: Urine WBC Occasional, Ur Squamous Epith Cells 10-20, Urine Bacteria 1+, Urine Mucus Trace 07/08/19 12:22: Stl Aeromonas (PCR) Not detected, Stl C. cayetanensis PCR Not detected, Stool Rotavirus (PCR) Not detected, Stl Adenov F 40/41 PCR Not detected, Stool Astrovirus (PCR) Not detected, Stool Campylobacter PCR Not detected, Stl C.difficile Tox PCR Not detected, Stool Cryptosporidium PCR Not detected, Stl E.coli Shiga Tox PCR Not detected, Stool E coli O157 PCR Not detected, Stl Enterotoxigenic E PCR Not detected, Stool EPEC (PCR) Not detected, Stool EAEC (PCR) Not detected, Stl E. histolytica PCR Not detected, Stool Giardia Lamblia PCR Not detected, Stool Salmonella PCR Not detected, Stool S apovirus (PCR) Not detected, Stl P. shigelloides PCR Not detected, Stl Shigella/EIEC PCR Not detected, St Y.enterocolitica PCR Not detected, Stool Vibrio (PCR) Not detected, Stl Vibrio cholerae PCR Not detected, Stl Norovirus GI/GII PCR Not detected 07/09/19 05:55: WBC 9.1 D, RBC 4.57, Hgb 13.1 D, Hct 40.2, MCV 87.9, MCH 28.6, MCHC 32.5, RDW 13.8, Plt Count 277, MPV 8.8, Neut % (Auto) 71.0, Lymph % (Auto) 18.3, [place] % (Auto) 6.1, Eos % (Auto) 4.0, Baso % (Auto) 0.6, Neut # (Auto) 6.5, Lymph # (Auto) 1.7, [place] # (Auto) 0.6, Eos # (Auto) 0.4, Baso # (Auto) 0.1 I & O for Last 24 hours: Intake & Output 07/07/19 07/08/19 07/09/19 07/10/19 11:59 11:59 11:59 11:59 Intake Total 1751 Balance 1751 Weight 74.843 kg 73.482 kg Radiology Reports for the Last 24 Hours: Procedure: CT ABDOMEN PELVIS W CON Patient Age:39Y CLINICAL INDICATION: ABD PAIN abdominal pain since August 25 2018. Cardia and bloating abdominal pain with nose with a the a COMPARISON: ABDPELW CT abdomen pelvis w con from 10/19/2018 TECHNIQUE: I 75 cc of Optiray 350. Patient also drank oral contrast diluted Gastroview. Axial images obtained with sagittal and coronal reformats. All CT scans at the the facility use one or more dose reduction, viz: automated exposure control, ma/kV adjustment per patient size (including targeted exams where dose is matched to indication, i.e. head), or iterative reconstruction technique. FINDINGS: Lower thorax: No acute finding ABDOMEN: Liver: No masses or biliary dilatation. The Common Duct: Upper normal caliber measuring up to 7 mm. Best seen on coronal image 32. No stones evident here Pancreas: Unremarkable on today's post-contrast study but again the common duct the Spleen: unremarkable Adrenals: unremarkable tract. Kidneys/ureters: unremarkable. Normal enhancing kidneys bilaterally. PELVIS: Right and left ovary appear satisfactory with each measure up to 3 cm in size with both containing likely cyst. Larger right ovarian likely follicular cyst right measures up to 18 mm.. No free fluid cul-de-sac. Moderate endometrial stripe at normal size size uterus. Urinary bladder is unremarkable no calculi. phlebolith right pelvic basin again noted-. Unchanged.. GI TRACT. Large bowel. Increase, generous amount stool is seen throughout the entire colon. Suggest of mild/moderate constipation.. The most prominent stool is seen at the right colon and cecum cecum extends to resides just superior to the bladder in the anterior mid right pelvis... Upper normal wall thickening is seen portions of sigmoid colon of may reflect lack of distension in similar of but difficult to totally exclude a colitis-favor unlikely without some liquid stool or other findings Terminal ileum appears normal. Appendix the is normal. Best seen on coronal image 31, 32 Small bowel. No oral contrast is moving through the entire small bowel and has reached the right colon but small bowel normal caliber no wall thickening or significant findings. Stomach appears normal contrast filled but duodenal loop unremarkable the the Peritoneum: No abnormal fluid collections. No obvious inflammatory changes. No free air. Lymph nodes: No significant enlarged enlarged lymph nodes apparent. Vasculature: No evidence of abdominal aortic aneurysm. Bones: No acute fracture but no lesions but degenerative disc changes since and spondylosis L5/S1 facet arthropathy at this level as but [id number] bilateral foraminal encroachment but IMPRESSION: No discrete nor prominent acute findings in the abdomen and pelvis No discrete focal inflammatory process Increased solid stool throughout large bowel the observed today,-suggest mild/moderate constipation. Upper normal wall thickness sigmoid colon-more likely reflecting lack of distension. Less likely colitis. common duct upper normal caliber. No stones evident A few small scattered retroperitoneal and mesenteric nodes unimpressive and appear stable. No significant adenopathy nor mass Dictated by: Terry Jacinto MD 07/08/2019 15:18 Electronically signed by Terry Jacinto MD in [place] 07/08/2019 1 - Constitutional no acute distress, average body habitus, cooperative - *Routine HEENT Exam Head: Present: normocephalic, atraumatic Eye: Present: EOMI. Absent: periorbital swelling ENT: Present: mucous membranes moist, nares patent - *Routine Neck Exam Present: supple, full ROM - Routine Chest/Breast/Axilla Exam Chest wall: Absent: tenderness - *Routine Respiratory Exam Present: CTA bilaterally. Absent: accessory muscle use, rhonchi, wheezes, crackles - *Routine Cardiovascular Exam Present: RRR, Normal S1, Normal S2. Absent: murmur, gallop, rubs - *Routine Abdominal Exam Present: soft, normoactive bowel sounds, tenderness, distended. Absent: rigid Comments: Generally and mildly tender to palpation throughout. Moderately distended with gas bloat and palpable stool - *Routine Extremities Exam Present: full ROM. Absent: cyanosis, clubbing, edema - *Routine Skin Exam Present: intact. Absent: cyanosis, erythema - *Routine Neurological Exam Present: alert, oriented X3, normal speech - Routine Psychiatric Exam Present: normal affect, normal thought process Internal Medicine - CN: Reslt - Labs CBC & Chem 7: 07/09/19 05:55 07/08/19 12:22 Labs: Short CBC 07/08/19 07/09/19 Range/Units 12:22 05:55 WBC 16.2 H 9.1 D (4.8-10.8) K/mm3 Hgb 15.1 13.1 D (12.2-16.2) g/dL Hct 44.8 40.2 (37.0-47.0) % Plt Count 360 277 (142-424) K/mm3 BMP 07/08/19 12:22 Sodium 138 Potassium 3.5 Chloride 103 Carbon Dioxide 27 BUN 7 Creatinine 0.85 Glucose 101 Calcium 9.3 Liver Function 07/08/19 Range/Units 12:22 Total Bilirubin 0.5 (0.2-1.0) mg/dL AST 12 L (15-37) U/L ALT 16 (12-78) U/L Alkaline Phosphatase 71 (46-116) U/L Albumin 4.1 (3.4-5.0) gm/dL Assessment and Plan (1) Abdominal pain Current visit: Yes Status: Acute Qualifiers: Abdominal location: unspecified location Qualified Code(s): R10.9 - Unspecified abdominal pain Category: Medical Code(s): R10.9 - Unspecified abdominal pain I believe this is constipation related abdominal discomfort along with bloating belching gassiness. Likely this is acute on chronic constipation exacerbated by high sucrose/Isomaltose dietary choices at home. CT scan did show generous amount of stool throughout the colon and some possible wall thickening of the sigmoid colon. But no liquid stool other signs of colitis. She did have an elevated white blood cell count but that resolved with lab draw this morning. C T scan did so notes a couple of ovarian cysts as well. This may be complicating her abdominal discomfort. I expect she will continue her abdominal pain until she has resolution of some of this constipation. See plan under "constipation" and she can follow-up with me in the office after discharge. If she still having abdominal discomfort with resolution of some of this constipation, she may need another referral to gynecology for the ovarian cysts. (2) Sucrase-isomaltase deficiency Current visit: Yes Status: Chronic Category: Medical Code(s): E74.31 - Sucrase-isomaltase deficiency Patient was mildly sucrase isomaltase deficient on testing. She has been using the Sucraid regularly which initially improved her symptoms of bloating belching and gassiness. However, Sucraid is been known to contribute to constipation occasionally and I believe that this has exacerbated her underlying constipation. She has had loose stools likely around the constipation. Recomm end she continue low sucrose and a isomaltose diet but stop the Sucraid temporarily. (3) Multiple food allergies Current visit: Yes Status: Chronic Category: Medical Code(s): Z91.018 - Allergy to other foods (4) Dehydration Current visit: No Status: Acute Category: Medical Code(s): E86.0 - Dehydration Likely contributing to her constipation. Recommend she increase her p.o. intake at home (5) Leukocytosis Current visit: No Status: Acute Category: Medical Code(s): D72.829 - Elevated white blood cell count, unspecified (6) Hypertension Current visit: No Status: Chronic Category: Medical Code(s): I10 - Es sential (primary) hypertension (7) Constipation Current visit: Yes Status: Acute Category: Medical Code(s): K59.00 - Constipation, unspecified Acute on chronic constipation. Likely this is exacerbated by the Sucraid. Likely her abdominal pain is a direct result of the constipation. Is unlikely she will get relief until we get her bowels moving. Start with a soapsuds enema and start her on MiraLAX Citrucel every day first dose now. We will also do a single dose of mag citrate oral. We can hold the mag citrate if patient has a large production of stool from the soapsuds enema. If she produces large amount of stool and and nausea resolves, she can go back to eating a low sucrose isomaltose diet. I recommend she stop the Linzess. We will start her on 2 mg of Motegrity daily and I will send a prescription to her pharmacy now. Go back to 1 capful of MiraLAX and 1 tablespoon of Citrucel daily. I would like her to follow up in the office with me after discharge.
--- NOTE | 2019-07-10 08:35 | Progress Note ---
<Janae Plummer - Last Filed: 07/10/19 08:31> Internal Medicine - PN: Subj *Date: 07/10/19 *Time: 08:31 Interval history: Feels awful today. States the pain is terrible. Would like something else besides Toradol even if it does make her more constipated. She did have 3 hard stools since the enema, mag citrate, and MiraLAX plus Citrucel, and prune juice. She has not vomited. She does not want anything to eat or drink. She did sleep for about 4 hours Exam Vital signs and Labs for Last 24 Hours: Temp Pulse Resp BP Pulse Ox 98.4 F 87 20 136/87 98 07/10/19 07:51 07/10/19 07:51 07/10/19 07:51 07/10/19 07:51 07/10/19 07:51 I & O for Last 24 hours: Intake & Output 07/07/19 07/08/19 07/09/19 07/10/19 11:59 11:59 11:59 11:59 Intake Total 1751 / 1751 3284 / 3284 Balance 1751 / 1751 3284 / 3284 Weight 165 lb 162 lb 0.001 oz 158 lb 9 oz - Constitutional no acute distress - *Routine Respiratory Exam Present: CTA bilaterally - *Routine Cardiovascular Exam Present: RRR - *Routine Abdominal Exam Present: soft (Hyperactive bowel sounds), tenderness (Diffusely tender). Absent: distended - *Routine Extremities Exam Absent: edema Assessment and Plan (1) Abdominal pain Current visit: Yes Status: Acute Qualifiers: Abdominal location: unspecified location Qualified Code(s): R10.9 - Unspecified abdominal pain Category: Medical Code(s): R10.9 - Unspecified abdominal pain (2) Sucrase-isomaltase deficiency Current visit: Yes Status: Chronic Category: Medical Code(s): E74.31 - S ucrase-isomaltase deficiency (3) Multiple food allergies Current visit: Yes Status: Chronic Category: Medical Code(s): Z91.018 - Allergy to other foods (4) Dehydration Current visit: No Status: Acute Category: Medical Code(s): E86.0 - Dehydration (5) Leukocytosis Current visit: No Status: Acute Category: Medical Code(s): D72.829 - Elevated white blood cell count, unspecified (6) Hypertension Current visit: No Status: Chronic Category: Medical Code(s): I10 - Essential (primary) hypertension (7) Constipation Current visit: Yes Status: Acute Category: Medical Code(s): K59.00 - Cons tipation, unspecified - Assessment and plan all Dx Assessment and Plan for all problems:: Continue with MiraLAX, fiber, and add Reglan. Consider additional enemas. Patient encouraged to ambulate and ambulate <Van Huddleston - Last Filed: 07/10/19 08:58> Internal Medicine - PN: Subj *Date: 07/10/19 *Time: 08:58 Exam Vital signs and Labs for Last 24 Hours: Temp Pulse Resp BP Pulse Ox 98.4 F 87 20 136/87 98 07/10/19 07:51 07/10/19 07:51 07/10/19 07:51 07/10/19 07:51 07/10/19 07:51 I & O for Last 24 hours: Intake & Output 07/07/19 07/08/19 07/09/19 07/10/19 23:59 23:59 23:59 23:59 Intake Total 120 / 120 2841 / 2841 2073 Balance 120 / 120 2841 / 2841 2073 Weight 162 lb 162 lb 0.001 oz 158 lb 9 oz Assessment and Plan (1) Abdominal pain Current visit: Yes Status: Acute Qualifiers: Abdominal location: unspecified location Qualified Code(s): R10.9 - Unspecified abdominal pain Category: Medical Code(s): R10.9 - Unspecified abdominal pain (2) Sucrase-isomaltase deficiency Current visit: Yes Status: Chronic Category: Medical Code(s): E74.31 - Sucrase-isomaltase deficiency (3) Multiple food allergies Current visit: Yes Status: Chronic Category: Medical Code(s): Z91.018 - Allergy to other foods (4) Dehydration Current visit: No Status: Acute Category: Medical Code(s): E86.0 - Dehydration (5) Leukocytosis Current visit: No Status: Acute Category: Medical Code(s): D72.829 - Elevated white blood cell count, unspecified (6) Hypertension Current visit: No Status: Chronic Category: Medical Code(s): I10 - Essential (primary) hypertension (7) Constipation Current visit: Yes Status: Acute Category: Medical Code(s): K59.00 - Constipation, unspecified - Assessment and plan all Dx Assessment and Plan for all problems:: Saw patient, agree with above note.
[2019-07-10 18:01] VITALS: BP 129/79
--- NOTE | 2019-07-12 14:14 | Discharge Summary ---
General - General Admission date:: 07/08/19 Discharge date: 07/10/19 HPI HPI: Ms. Lorenz is a 39-year-old female with a history of hypertension, depression and anxiety, multiple food allergies, and congenital sucraseIsomaltase deficiency who presented to [facility] emergency room yesterday a.m. after experiencing several days of worsening abdominal pain which she describes as intermittent cramping waves. She states her bowels have not moved in several days. For the past 2 days she has given herself suppositories. She is nauseated but never vomits. She feels bloated with frequent belching and passing of flatus. She states there about 6 foods that she can eat and drink and she decided one evening to eat [place] fries and another carbohydrate. She immediately had worsening abdominal pain. With evaluation in the emergency room CT of the abdomen/pelvis showed no acute findings and no acute inflammatory process but did show mild to moderate constipation. White blood cell count was found to be elevated. She was given T oradol for her discomfort. She was then admitted for further evaluation and treatment with a GI consult. Patient has had ongoing problems with diarrhea, constipation, and abdominal pain. She is followed by gastroenterology. Last GI office visit in May revealed that she was doing better with more regular normal stools. She was told to add some additional foods to her diet. When she did this she again began to have the abdominal cramping, diarrhea, and constipation. She would like some resolution. Hospital Course Hospital Course: The patient was started on IV fluids and given 2 suppositories. She did have a small stool. GI was consulted. She was seen by Dr. Sears who felt that she did have acute on chronic constipation exacerbated by high sucrose/isomaltase dietary choices at home. The CT also showed a couple of ovarian cyst which he felt could be complicating her abdominal pain. He felt her abdominal pain would continue until she had resolution of constipation. He wanted her to have soapsuds enemas and to start on MiraLAX daily. He also gave her a single dose of mag citrate. He started on 2 mg of Motegrity daily and felt she could be discharged once her constipation resolved. The patient had been taking Sucraid for her sucroseisomaltase deficiency and it is known to cause some constipation. He recommended she continue a low sucrose and isomaltase diet but that she should stop the Sucraid temporarily. He felt she would need referral to [facility] for her ovarian cysts. The patient's pain continued and she requested something besides Toradol for her abdominal pain. She did have 3 hard stools after receiving the enema, mag citrate, MiraLAX, and prune juice. Reglan was added and she was encouraged to ambulate. She had a few more small bowel movements and began feeling better. She was stable to be discharged home and will need to follow-up with Dr. Huddleston in 1 week. Objective Vital signs: Temp Pulse Resp BP Pulse Ox 98.1 F 79 16 129/79 98 07/10/19 16:00 07/10/19 16:00 07/10/19 16:00 07/10/19 16:00 07/10/19 16:00 Narrative: - Constitutional no acute distress - *Routine HEENT Exam Head: Present: normocephalic, atraumatic Eye: Present: PERRL ENT: Present: mucous membranes moist, oropharynx clear, dentition normal - *Routine Neck Exam Present: supple. Absent: carotid bruit, lymphadenopathy, thyromegaly - *Routine Respiratory Exam Present: CTA bilaterally (Anteriorly and posteriorly) - *Routine Cardiovascular Exam Present: RRR - *Routine Abdominal Exam Present: soft, tenderness Comments: Hyperactive bowel sounds - *Routine Extremities Exam Absent: edema, calf tenderness - *Routine Neurological Exam Present: alert, oriented X3 DS: Diagnosis - Discharge Diagnosis (1) Abdominal pain Status: Acute (2) Sucrase-isomaltase deficiency Status: Chronic (3) Multiple food allergies Status: Chronic (4) Dehydration Status: Acute (5) Leukocytosis Status: Acute (6) Hypertension Status: Chronic (7) Constipation Status: Acute Discharge Plan - Patient Discharge Instructions ACTIVITY: Continue current activity DIET: continue same diet Patient Instructions: DI for Abdominal Pain-Adult, DI for Constipation - Follow up Plan Follow up with: Van Huddleston MD [Primary Care Provider] - 1 week Disposition: Home, Self-Nursing Home Medications: Home Medications Medication Instructions Recorded Confirmed Type Amlodipine Besylate 10 mg PO DAILY 08/27/18 07/09/19 History Atorvastatin Calcium [Atorvastatin 10 mg PO HS 08/27/18 07/09/19 History 10mg Tab] Levocetirizine Dihydrochloride 5 mg PO DAILY 08/27/18 07/09/19 History Montelukast Sodium [Montelukast 10 mg PO HS 08/27/18 07/09/19 History 10mg Tab] Omeprazole [Omeprazole 20mg 20 mg PO DAILY 08/27/18 07/09/19 History Capsule] apple cider vinegar 600 mg capsule 450 mg PO BID cap 07/02/19 07/09/19 History diphenhydramine 25 mg capsule 25 mg PO BIDP PRN cap 07/02/19 07/09/19 History omega-3 fatty acids 1,000 mg 1,000 mg PO DAILY 07/02/19 07/09/19 History capsule ondansetron 4 mg disintegrating 4 mg PO TID PRN #60 tab 07/02/19 07/09/19 History tablet phenazopyridine 100 mg tablet 100 mg PO TID PRN 07/02/19 07/09/19 History Fluticasone Propionate 2 spry IH DAILY 07/09/19 07/09/19 History Hyoscyamine Sulfate 0.125 mg PO Q4HP PRN 07/09/19 07/09/19 History L.acidoph,Paracasei, B.lactis 1 cap PO DAILY 07/09/19 07/09/19 History [Probiotic] Linaclotide [Linzess] 72 mcg PO DAILY 07/09/19 07/09/19 History Psyllium Husk [Metamucil] 660 gm PO DAILY 07/09/19 07/09/19 History Pumpkin Seed Extract/Soy Germ [Azo 2 mg PO DAILY 07/09/19 07/09/19 History Bladder Control Capsule] Sacrosidase [Sucraid] 2 ml PO DAILY 07/09/19 07/09/19 History buPROPion HCl [Wellbutrin 100mg 100 mg PO BIDP PRN 07/09/19 07/09/19 History Tablet] Metoclopramide HCl [Reglan 5mg 5 mg PO ACHS #30 tab 07/10/19 Rx Tablet] Prescriptions/Medication Reconciliation: New Metoclopramide HCl [Reglan 5mg Tablet] 5 mg PO ACHS #30 tab Continued ondansetron 4 mg disintegrating tablet 4 mg PO TID PRN #60 tab PRN Reason: Nausea diphenhydramine 25 mg capsule 25 mg PO BIDP PRN cap PRN Reason: ALLERGIES apple cider vinegar 600 mg capsule 450 mg PO BID cap omega-3 fatty acids 1,000 mg capsule 1,000 mg PO DAILY phenazopyridine 100 mg tablet 100 mg PO TID PRN PRN Reason: Mild To Moderate Pain Montelukast Sodium [Montelukast 10mg Tab] 10 mg PO HS Omeprazole [Omeprazole 20mg Capsule] 20 mg PO DAILY Levocetirizine Dihydrochloride 5 mg PO DAILY Atorvastatin Calcium [Atorvastatin 10mg Tab] 10 mg PO HS Amlodipine Besylate 10 mg PO DAILY Linaclotide [Linzess] 72 mcg PO DAILY L.acidoph,Paracasei, B.lactis [Probiotic] 1 cap PO DAILY Sacrosidase [Sucraid] 2 ml PO DAILY Hyoscyamine Sulfate 0.125 mg PO Q4HP PRN PRN Reason: STOMACH PAIN Fluticasone Propionate 2 spry IH DAILY Pumpkin Seed Extract/Soy Germ [Azo Bladder Control Capsule] 2 mg PO DAILY buPROPion HCl [Wellbutrin 100mg Tablet] 100 mg PO BIDP PRN PRN Reason: Smoking Cessation Psyllium Husk [Metamucil] 660 gm PO DAILY - Problem Reconciliation Problems Reviewed?: Yes
== END 2019-07-10 18:13 | disposition home or self-care (01) ==
LOC: 2ND 11:40 → UTC 11:40 → ER 11:40 → 2ND 17:03
PROVIDERS: ADMIT Family Medicine; ATTEND Family Medicine
CPT/HCPCS: 36415; 74177; 80053; 81001; 81025; 82150; 83690; 85007; 85025; 87507; 96365; 96375; 99284; G0378; J2405; Q9967

== ENCOUNTER → 2019-07-16 10:25 | Outpatient (POV) | payer BC, SELFPAY | PROVIDERS: PCP Physician Assistant; Visit Provider Nurse Practitioner Family | DX: Z00.00 Encounter for general adult medical examination without abnormal findings (principal) ==

== ENCOUNTER 2019-08-23 11:06 | Outpatient (CLI) | payer BC, SELFPAY ==
--- NOTE | 2019-08-23 11:10 | XR_ITS ---
PROCEDURE: XR ABDOMEN MIN 2V CLINICAL INDICATION: CHILLS, FEVER, CONSTIPATION COMPARISON: CT ABDOMEN PELVIS W CON from 07/08/2019 XR CHEST 2V from 08/23/2019 FINDINGS: There is a moderate amount of retained colonic feces. No intestinal obstruction or acute bony anomaly. Right lower pelvic calcification noted similar to the previous CT scan consistent with a phleboliths IMPRESSION: Constipation Dictated by: Rajendra Saxena MD 08/23/2019 11:43 Electronically signed by Rajendra Saxena MD in [place] 08/23/2019 11:43
--- NOTE | 2019-08-23 11:10 | XR_ITS ---
PROCEDURE: XR CHEST 2V CLINICAL HISTORY: CHILLS FEVER CONSTIPATION COMPARISON: No exams were available for comparison FINDINGS: The cardiomediastinal silhouette and pulmonary vascularity are within normal limits. The lungs are clear without infiltrates, suspicious nodules, or pleural effusions. No acute bony abnormalities. IMPRESSION: No acute findings. Dictated by: Rajendra Saxena MD 08/23/2019 11:42 Electronically signed by Rajendra Saxena MD in [place] 08/23/2019 11:42
[2019-08-23 11:34] VITALS: BMI 26.9
[2019-08-23 12:12] VITALS: BP 133/77; PULSE 78; RESP 18; TEMP 37.1; O2SAT 99
[2019-08-23 12:16] VITALS: RESP 18
[2019-08-23 12:50] VITALS: BP 129/76; PULSE 82; RESP 18; TEMP 37.1; O2SAT 98
[2019-08-23 12:53] LABS: Alanine Aminotransferase 15 U/L (12-78); Albumin Level 4.3 gm/dL (3.4-5.0); Albumin/Globulin Ratio 1.1 (1.1-1.8); Alkaline Phosphatase 85 U/L (46-116); Amylase 38 U/L (25-115); Anion Gap 12.4 mEq/L (5-15); Aspartate Amino Transferase 8 U/L (15-37); Bilirubin,Total 0.6 mg/dL (0.2-1.0); Blood Urea Nitrogen 12 mg/dL (7-18); Calcium 9.3 mg/dL (8.5-10.1); Carbon Dioxide 29 mmol/L (21.0-32.0); Chloride 101 mmol/L (98-107); Creatinine Clearance Estimated 96 mL/min (50-200); Creatinine,Serum 0.88 mg/dL (0.55-1.02); Estimated Glomerular Filt Rate 72 ml/min (>60); GFR (African American) 87 ML/MIN (>60); Globulin 3.9 gm/dl (1.3-3.2); Glucose 90 mg/dL (74-106); Potassium 3.4 mmoL/L (3.5-5.1); Sodium 139 mmol/L (136-145); Total Protein,Serum 8.2 gm/dL (6.4-8.2)
[2019-08-23 13:25] VITALS: BP 139/82; PULSE 89; RESP 18; TEMP 36.9; O2SAT 99
[2019-08-23 14:00] LABS: Lipase 122 u/L (73-393)
== END 2019-08-23 13:25 | disposition home or self-care (01) ==
LOC: INF 11:08
PROVIDERS: PCP Physician Assistant; Visit Provider Physician Assistant
DX: E86.0 Dehydration (principal); R51 Headache; R50.9 Fever, unspecified; K59.00 Constipation, unspecified
CPT/HCPCS: 71046; 74019; 80053; 82150; 83690; 87040; 96360; 96375; J2405

== ENCOUNTER → 2019-08-25 10:57 | Outpatient (CLI) | payer BC, SELFPAY ==
[2019-08-25 11:00] LABS: Adenovirus,PCR Not Detected (NotDetected); Bordetella Pertussis Not Detected (NotDetected); Chlamydophila Pneumoniae, PCR Not Detected (NotDetected); Coronavirus 229E Not Detected (NotDetected); Coronavirus NL63 Not Detected (NotDetected); Coronavirus OC43 Not Detected (NotDetected); Coronovirus HKU1,PCR Not Detected (NotDetected); Human Metapneumovirus Not Detected (NotDetected); Influenza A, PCR Not Detected (NotDetected); Influenza AH1, 2009 Not Detected (NotDetected); Influenza AH1, PCR Not Detected (NotDetected); Influenza AH3,PCR Not Detected (NotDetected); Influenza B, PCR Not Detected (NotDetected); Mycoplasma Pneumoniae, PCR Not Detected (NotDetected); Parainfluenza 1, PCR Not Detected (NotDetected); Parainfluenza 2, PCR Not Detected (NotDetected); Parainfluenza 3, PCR Not Detected (NotDetected); Parainfluenza 4, PCR Not Detected (NotDetected); Respiratory Syncytial Virus Not Detected (NotDetected); Rhinovirus/Enterovirus Not Detected (NotDetected)
[2019-08-27 13:42] LABS: Cytomegalovirus (CMV) Ab, IgG <0.60 U/mL (0.00-0.59); Cytomegalovirus (CMV) Ab, IgM <30.0 AU/mL (0.0-29.9)
[2019-08-28 16:12] LABS: EBV Ab VCA, IgG >600.0 U/mL (0.0-17.9); EBV Ab VCA, IgM <36.0 U/mL (0.0-35.9)
== END ==
PROVIDERS: Visit Provider Physician Assistant
DX: R50.9 Fever, unspecified (principal)
CPT/HCPCS: 36415; 86644; 86645; 86664; 86665; 87486; 87581; 87633; 87798

== ENCOUNTER → 2019-10-18 14:02 | Outpatient (CLI) | payer BC, SELFPAY ==
--- NOTE | 2019-10-18 14:03 | MM_ITS ---
PROCEDURE: MM DIG MAMM BI DX W/CAD Digital Breast Tomosynthesis Included CLINICAL INDICATION: abnormal mammogram With scattered areas of asymmetric glandular elements COMPARISON: DMSB DIG MAMM-SCREEN INNA W/CAD from 05/30/2017 [facility] MM Dig screening mamm BI w/CAD from 06/15/2018 MM DIG SCREENING MAMM BI W/CAD from 06/21/2019 TECHNIQUE: Standard CC and MLO images and 3D Tomosynthesis was obtained. R2 CAD reviewed. FINDINGS: There is a diffusely dense and heterogenic parenchymal pattern bilaterally. Rodriguez images are most helpful in this type of breast parenchyma. A skin marker was placed upper-outer quadrant right breast at the site of patient's complaint of its fullness and I see no abnormality underlying the marker. There is no suspicious lesion in either breast and no suspicious microcalcifications. IMPRESSION: Dense and heterogenic parenchymal pattern with no suspicious lesions seen BI-RAD Category: 1 Negative FOLLOW-UP: 1YR 1 Year Follow-up (A letter has been sent to the patient regarding results of the study.) Dictated by: Dr. Vasile Sinclair MD 10/26/2019 08:[address] Vasile Sinclair MD in [place] 10/26/2019 08:59
--- NOTE | 2019-10-18 14:03 | US_ITS ---
PROCEDURE: US BREAST RT COMPLETE CLINICAL INDICATION: abnormal mammogram COMPARISON: US BREAST RT COMPLETE from 07/03/2019 FINDINGS: There is a tiny oval hypoechoic cystic-appearing lesion at the 10 o'clock position outer breast measuring 0.4 by 0.4 by 0.4 cm and this is likely a tiny benign cyst. However in addition there is hypoechoic oval lesion at the 11 o'clock position outer breast with internal echoes and lack of acoustic enhancement and this is likely a complicated cyst and is not definitely imaged on the previous study. There are couple normal appearing nodes in the axilla. IMPRESSION: Possible new oval hypoechoic lesion 10 o'clock position likely a complicated cyst with benign features recommend the patient return for six-month follow-up ultrasound right breast to evaluate for interval stability. Dictated by: Dr. Vasile Sinclair MD 11/08/2019 14:[address] Vasile Sinclair MD in [place] 11/08/2019 14:11
== END ==
PROVIDERS: PCP Physician Assistant; Visit Provider Nurse Practitioner Obstetrics & Gynecology
DX: R92.8 Other abnormal and inconclusive findings on diagnostic imaging of breast (principal)
CPT/HCPCS: 76641; 77062; 77066; G0279

== ENCOUNTER → 2019-11-28 16:00 | Outpatient (CLI) | payer BC, SELFPAY ==
--- NOTE | 2019-11-28 16:05 | XR_ITS ---
PROCEDURE: XR CHEST 2V CLINICAL HISTORY: LUNG NODULEE Follow-up lung nodule COMPARISON: XR CHEST 2V from 08/23/2019 XR CHEST PORTABLE from 11/20/2019 FINDINGS: The cardiomediastinal silhouette and pulmonary vascularity are within normal limits. Previously noted area of increased density in the right apex medially is less apparent and may have been due to overlying summation artifact. This could be confirmed with chest CT. The remaining lungs are clear. No acute bony abnormalities. IMPRESSION: Previously noted density in the right apex less apparent and may have been due to overlying summation artifact which could be confirmed with chest CT if clinically desired. Dictated by: Rajendra Saxena MD 11/28/2019 16:30 Electronically signed by Rajendra Saxena MD in [place] 11/28/2019 16:30
[2019-11-28 16:26] LABS: Adenovirus,PCR Not Detected (NotDetected); Bordetella Pertussis Not Detected (NotDetected); Chlamydophila Pneumoniae, PCR Not Detected (NotDetected); Coronavirus 229E Not Detected (NotDetected); Coronavirus NL63 Not Detected (NotDetected); Coronavirus OC43 Not Detected (NotDetected); Coronovirus HKU1,PCR Not Detected (NotDetected); Human Metapneumovirus Not Detected (NotDetected); Influenza A, PCR Not Detected (NotDetected); Influenza AH1, 2009 Not Detected (NotDetected); Influenza AH1, PCR Not Detected (NotDetected); Influenza AH3,PCR Not Detected (NotDetected); Influenza B, PCR Not Detected (NotDetected); Mycoplasma Pneumoniae, PCR Not Detected (NotDetected); Parainfluenza 1, PCR Not Detected (NotDetected); Parainfluenza 2, PCR Not Detected (NotDetected); Parainfluenza 3, PCR Not Detected (NotDetected); Parainfluenza 4, PCR Not Detected (NotDetected); Respiratory Syncytial Virus Not Detected (NotDetected); Rhinovirus/Enterovirus Not Detected (NotDetected)
[2019-11-28 17:09] LABS: Chloride 101 mmol/L (98-107); Potassium 3.7 mmoL/L (3.5-5.1); Sodium 135 mmol/L (136-145)
[2019-11-28 17:12] LABS: Alanine Aminotransferase 20 U/L (12-78); Albumin Level 4.4 g/dl (3.5-5.0); Albumin/Globulin Ratio 1.6 (1.1-1.8); Alkaline Phosphatase 60 U/L (38-126); Anion Gap 8.7 mEq/L (5-15); Aspartate Amino Transferase 27 U/L (14-36); Bilirubin,Total 0.4 mg/dl (0.2-1.3); Calcium 9.7 mg/dl (8.4-10.2); Carbon Dioxide 29 mmol/L (22.0-30.0); Estimated Glomerular Filt Rate 70 ml/min (>60); GFR (African American) 84 ML/MIN (>60); Globulin 2.7 g/dL (1.3-3.2); Glucose 134 mg/dl (74-100); Total Protein,Serum 7.1 g/dl (6.3-8.2)
[2019-11-28 17:37] LABS: Blood Urea Nitrogen 11 mg/dl (7-17)
[2019-11-28 18:15] LABS: Basophils # 0.1 K/mm3 (0-0.2); Basophils % 0.8 % (0.1-2.0); Eosinophils # 0.1 K/mm3 (0.0-0.4); Eosinophils % 1.3 % (0.1-12.0); Hemoglobin 14.1 g/dL (12.2-16.2); Lymphocytes # 1.8 K/mm3 (0.7-4.5); Lymphocytes % 18.6 % (10-50); Mean Corpuscular HGB Conc 33.6 g/dL (31.8-35.4); Mean Corpuscular Hemoglobin 28.4 pg (27.0-31.2); Mean Corpuscular Volume 84.6 fl (81-99); Mean Platelet Volume 8.4 fl (7.4-10.4); Monocytes # 0.5 K/mm3 (0.1-1.0); Monocytes % 5.5 % (1.7-9.3); Neutrophils # 7.2 K/mm3 (1.8-7.8); Neutrophils % 73.7 % (37.0-80.0); Platelet Count 308 K/mm3 (142-424); Red Blood Count 4.96 M/mm3 (4.20-5.40); Red Cell Distribution Width 13.1 % (11.5-17.5); White Blood Count 9.8 K/mm3 (4.8-10.8)
[2019-11-30 11:57] LABS: Cytomegalovirus (CMV) Ab, IgG <0.60 U/mL (0.00-0.59); Cytomegalovirus (CMV) Ab, IgM <30.0 AU/mL (0.0-29.9)
[2019-11-30 14:22] LABS: EBV Ab VCA, IgG >600.0 U/mL (0.0-17.9); EBV Ab VCA, IgM <36.0 U/mL (0.0-35.9)
== END ==
PROVIDERS: PCP Physician Assistant; Visit Provider Physician Assistant
DX: R91.1 Solitary pulmonary nodule (principal); R50.9 Fever, unspecified; R53.83 Other fatigue; J06.9 Acute upper respiratory infection, unspecified
CPT/HCPCS: 36415; 71046; 80053; 85025; 86644; 86645; 86664; 86665; 87486; 87581; 87633; 87798; 87799

== ENCOUNTER → 2019-12-24 15:39 | Outpatient (CLI) | payer BC, SELFPAY ==
--- NOTE | 2019-12-24 15:43 | US_ITS ---
PROCEDURE: MM DIG MAMM DX UNILAT RT CAD Digital Breast Tomosynthesis Included CLINICAL INDICATION: PALP AREA Palpable abnormality of the right breast COMPARISON: DMSB DIG MAMM-SCREEN INNA from 05/25/2016 [facility] MM Dig screening mamm BI w/CAD from 06/15/2018 MM DIG SCREENING MAMM BI W/CAD from 06/21/2019 US BREAST RT COMPLETE from 07/03/2019 US BREAST RT COMPLETE from 10/18/2019 MM DIG MAMM BI DX W/CAD from 10/18/2019 US BREAST RT COMPLETE from 12/24/2019 TECHNIQUE: Standard CC and MLO images and 3D Tomosynthesis was obtained. R2 CAD reviewed. Right breast FINDINGS: There is average to dense fibroglandular tissue. Palpable abnormality is reported in the lower outer right breast. There is dense fibroglandular tissue in this area but no discrete mass is demonstrated. There is mildly prominent axillary lymph node with some questionable calcifications noted in the node. This however is not well demonstrated position prakash. Would recommend repeating the right mammogram with better axillary visualization when patient returns for right breast biopsy. Right breast ultrasound: There is diffuse heterogeneous echoic tissue in the region of the palpable abnormality at 6-7 o'clock having both areas of decreased and increased echogenicity which has the appearance diffuse fibrocystic changes. However, there is a persistent area of slight decreased echogenicity at this area as well measuring approximately 2 by 1.2 cm which is not demonstrated on the previous study. This does have a suspicious appearance and biopsy is suggested. There is also a prominent right axillary lymph node which is hypoechoic measuring 2.7 by 1.7 cm. A 4 mm cyst is present at 10 o'clock. IMPRESSION: BI-RAD Category: 4 Suspicious Abnormality - Biopsy Considered FOLLOW-UP: BIO Biopsy Recommended (A letter has been sent to the patient regarding results of the study.) Dictated by: Rajendra Saxena MD 12/28/2019 11:32 Electronically signed by Rajendra Saxena MD in [place] 12/28/2019 11:32
== END ==
PROVIDERS: PCP Physician Assistant; Visit Provider Physician Assistant
DX: N63.10 Unspecified lump in the right breast, unspecified quadrant (principal)
CPT/HCPCS: 76641; 77061; 77065; G0279

== ENCOUNTER → 2020-03-26 12:37 | Outpatient (CLI) | payer BC, SELFPAY ==
[2020-03-26 12:40] LABS: Adenovirus F 40/41, stool Not Detected (NotDetected); Astrovirus Not Detected (NotDetected); Campylobacter Not Detected (NotDetected); Clostridium Difficile A/B, PCR Not Detected (NotDetected); Cryptosporidium Not Detected (NotDetected); Cyclospora Cayetanesis Not Detected (NotDetected); Entamoeba histolytica Not Detected (NotDetected); Enteroaggregative E coli Not Detected (NotDetected); Enteropathogenic E coli Not Detected (NotDetected); Enterotoxigenic E coli Not Detected (NotDetected); Giardia lamblia Not Detected (NotDetected); Norovirus Not Detected (NotDetected); Plesimonas Shigalloides, PCR Not Detected (NotDetected); Rotavirus A Not Detected (NotDetected); Salmonella, PCR Not Detected (NotDetected); Sapovirus Not Detected (NotDetected); Shiga-like toxin E coli Not Detected (NotDetected); Shigella Enterovasive E coli Not Detected (NotDetected); Vibrio Cholerae Not Detected (NotDetected); Vibrio, PCR Not Detected (NotDetected); Yersinia Entercolitica, PCR Not Detected (NotDetected)
== END ==
PROVIDERS: Visit Provider Physician Assistant
DX: A04.0 Enteropathogenic Escherichia coli infection (principal)
CPT/HCPCS: 87507

== ENCOUNTER → 2020-05-26 10:56 | Outpatient (CLI) | payer BC, SELFPAY ==
--- NOTE | 2020-05-26 11:05 | XR_ITS ---
PROCEDURE: XR CHEST 2V CLINICAL HISTORY: HIP PAIN Injury with pain COMPARISON: CR XR CHEST 2V from 08/23/2019 CR XR CHEST PORTABLE from 11/20/2019 CR XR CHEST 2V from 11/28/2019 FINDINGS: The cardiomediastinal silhouette and pulmonary vascularity are within normal limits. The lungs are clear without infiltrates, suspicious nodules, or pleural effusions. Left subclavian MediPort catheter is present with the tip in the region the SVC. IMPRESSION: No acute findings. Dictated by: Rajendra Saxena MD 05/26/2020 13:37 Rajendra Saxena MD in [place] 05/26/2020 13:37
--- NOTE | 2020-05-26 11:05 | XR_ITS ---
PROCEDURE: XR RIBS RT MIN 3V W CXR1V CLINICAL INDICATION: CHEST WALL PAIN COMPARISON: No exams were available for comparison FINDINGS: There is a nondisplaced fracture involving the anterior aspect of the right 9th rib at the costochondral junction area. IMPRESSION: Nondisplaced right 9th rib fracture Dictated by: Rajendra Saxena MD 05/26/2020 13:36 Rajendra Saxena MD in [place] 05/26/2020 13:36
--- NOTE | 2020-05-26 11:05 | XR_ITS ---
PROCEDURE: XR HIP RT 2-3V W/PELVIS CLINICAL INDICATION: HIP PAIN Posttraumatic pain COMPARISON: No exams were available for comparison FINDINGS: No fracture or dislocation is evident. No significant degenerative change. No lytic or blastic change. Unremarkable soft tissues. IMPRESSION: No acute findings. Dictated by: Rajendra Saxena MD 05/26/2020 13:38 Rajendra Saxena MD in [place] 05/26/2020 13:38
== END ==
PROVIDERS: PCP Nurse Practitioner Family; Visit Provider Nurse Practitioner Family
DX: M25.551 Pain in right hip (principal); S20.219A Contusion of unspecified front wall of thorax, initial encounter
CPT/HCPCS: 71046; 71101; 73502

== ENCOUNTER → 2020-06-02 16:50 | Outpatient (CLI) | payer BC, SELFPAY | LOC: LAB 16:51 → LAB.DROPOF 16:56 | PROVIDERS: Visit Provider Nurse Practitioner Obstetrics & Gynecology | DX: C50.919 Malignant neoplasm of unspecified site of unspecified female breast (principal); R39.89 Other symptoms and signs involving the genitourinary system | CPT/HCPCS: 87086; 87088; 87186 ==

== ENCOUNTER → 2020-06-04 13:25 | Outpatient (CLI) | payer BC, SELFPAY ==
--- NOTE | 2020-06-04 13:34 | MR_ITS ---
PROCEDURE: MR ANKLE RT WO CON CLINICAL INDICATION: ANKLE PAIN PT STEPPED IN A HOLE 1.5 MONTHS AGO AND TWISTED RT ANKLE C/O LATERAL RT ANKLE PAIN SINCE. PT HAS HX OF BREAST CA AND HAS RECENTLY HAD CHEMO. > NO PRIOR COMPARISON: No exams were available for comparison TECHNIQUE: Routine multiplanar multi echo sequences are performed without gadolinium enhancement. FINDINGS: No obvious fracture or dislocation. No bone marrow edema apparent. The distal tibiofibular syndesmosis and tibiofibular ligaments appear intact. There is small amount fluid between the distal tibia and fibula. The ATFL appears intact. Small amount fluid is present at the region of the ATFL and PT FL. On the coronal images there is a suggestion of a partial tear of the PT FL with fluid signal intensity medial to the mid PT FL ligament fibers. The deltoid ligament appears intact. The peroneal tendons, posterior tibialis, flexor hallucis longus and flexor digitorum longus tendons and Achilles tendon appears intact. There is some slight increase in T2 signal of the peroneus longus tendon at the region of the calcaneus. While this could be due to magic angle artifact, tendinopathy/tendinosis would be included in the differential diagnosis. Please correlate with clinical findings. IMPRESSION: 1. Possible partial tear of the PT FL central ligament fibers. 2. Increased T2 signal of the peroneus longus tendon at the region of the calcaneus which may be due to tendinopathy/tendinosis versus a partial tear. Dictated by: Rajendra Saxena MD 06/09/2020 07:11 Rajendra Saxena MD in [place] 06/09/2020 07:11
== END ==
PROVIDERS: PCP Nurse Practitioner Family; Visit Provider Nurse Practitioner Family
DX: M25.571 Pain in right ankle and joints of right foot (principal)
CPT/HCPCS: 73721

== ENCOUNTER → 2020-08-27 16:37 | Outpatient (CLI) | payer BC, SELFPAY ==
--- NOTE | 2020-08-27 | XR_ITS ---
PROCEDURE: XR HAND RT 2V CLINICAL INDICATION: Pain COMPARISON: CR [id number] XR hand LT min 3V from 05/15/2018 FINDINGS: No fracture or dislocation. No lytic or blastic change. There is normal mineralization. The joint spaces are well-preserved. No significant degenerative/arthritic changes. No erosive changes evident. Other findings:None. IMPRESSION: Negative right hand Dictated by: Rajendra Saxena MD 08/27/2020 17:35 Rajendra Saxena MD in [place] 08/27/2020 17:35
--- NOTE | 2020-08-27 | XR_ITS ---
PROCEDURE: XR FOOT RT MIN 3V CLINICAL INDICATION: Pain and bruising COMPARISON: CR FTL3 FOOT-LT-3 VIEWS from 04/09/2015 FINDINGS: No fracture or dislocation. No lytic or blastic change. There is normal mineralization. The joint spaces are well-preserved. No significant degenerative/arthritic changes. No erosive changes evident. Other findings:There is a small calcaneal spur. There is a type 2 os trigonum IMPRESSION: Unremarkable right foot Dictated by: Rajendra Saxena MD 08/27/2020 17:37 Rajendra Saxena MD in [place] 08/27/2020 17:37
[2020-08-27 18:31] LABS: Coronavirus 19 IgG Antibody Negative (Negative); Coronavirus 19 IgM Antibody Negative (Negative)
== END ==
PROVIDERS: PCP Physician Assistant; Visit Provider Physician Assistant
DX: Z03.818 Encounter for observation for suspected exposure to other biological agents ruled out (principal); R00.2 Palpitations; M79.671 Pain in right foot; M79.641 Pain in right hand
CPT/HCPCS: 36415; 73120; 73630; 86328; U0003

== ENCOUNTER → 2021-03-13 15:44 | Outpatient (CLI) | payer BC, SELFPAY ==
[2021-03-13 16:44] LABS: Strep Scrn Group A (Rapid) Negative (Negative)
== END ==
PROVIDERS: PCP Physician Assistant; Visit Provider Physician Assistant
DX: Z20.822 Contact with and (suspected) exposure to COVID-19 (principal); J02.9 Acute pharyngitis, unspecified
CPT/HCPCS: 87430; U0003

== ENCOUNTER 2021-04-13 12:18 | Outpatient (CLI) | payer BC, SELFPAY ==
[2021-04-13 12:45] VITALS: BP 136/71; PULSE 92; RESP 18; TEMP 36.6; O2SAT 97
[2021-04-13 13:13] VITALS: BP 124/74; PULSE 91; RESP 18; O2SAT 99
[2021-04-13 14:05] VITALS: BP 119/68; PULSE 90; RESP 18; O2SAT 100
== END 2021-04-13 14:05 | disposition home or self-care (01) ==
LOC: INF 12:20
PROVIDERS: PCP Physician Assistant; Visit Provider Nurse Practitioner Obstetrics & Gynecology
DX: G43.019 Migraine without aura, intractable, without status migrainosus (principal)
CPT/HCPCS: 96360; 96375

== ENCOUNTER 2021-04-15 12:54 | Outpatient (CLI) | payer BC, SELFPAY ==
[2021-04-15 13:07] VITALS: BMI 33.1
[2021-04-15 13:31] LABS: Basophils # 0.1 K/mm3 (0-0.2); Basophils % 1.1 % (0.1-2.0); Eosinophils # 0.2 K/mm3 (0.0-0.4); Eosinophils % 4.3 % (0.1-12.0); Hematocrit 46.1 % (37.0-47.0); Lymphocytes # 0.9 K/mm3 (0.7-4.5); Lymphocytes % 17.7 % (10-50); Mean Corpuscular HGB Conc 32.6 g/dL (31.8-35.4); Mean Corpuscular Hemoglobin 29.5 pg (27.0-31.2); Mean Corpuscular Volume 90.7 fl (81-99); Mean Platelet Volume 7.6 fl (7.4-10.4); Monocytes # 0.3 K/mm3 (0.1-1.0); Monocytes % 5.5 % (1.7-9.3); Neutrophils # 3.7 K/mm3 (1.8-7.8); Neutrophils % 71.3 % (37.0-80.0); Platelet Count 329 K/mm3 (142-424); Red Blood Count 5.08 M/mm3 (4.20-5.40); Red Cell Distribution Width 13.3 % (11.5-17.5); White Blood Count 5.1 K/mm3 (4.8-10.8)
[2021-04-15 13:35] VITALS: BP 127/95; PULSE 74; RESP 18; O2SAT 98
[2021-04-15 13:45] LABS: Chloride 99 mmol/L (98-107); Sodium 141 mmol/L (136-145)
[2021-04-15 13:46] LABS: Potassium 4.2 mmoL/L (3.5-5.1)
[2021-04-15 13:48] LABS: Blood Urea Nitrogen 16 mg/dl (7-17); Creatinine Clearance Estimated 93 mL/min (50-200); Estimated Glomerular Filt Rate 55 ml/min (>60); GFR (African American) 66 ML/MIN (>60)
[2021-04-15 13:49] LABS: Anion Gap 11.2 mEq/L (5-15); Calcium 9.7 mg/dl (8.4-10.2); Carbon Dioxide 35 mmol/L (22.0-30.0); Glucose 104 mg/dl (74-100)
[2021-04-15 14:05] VITALS: BP 122/75; PULSE 70; RESP 16
[2021-04-15 14:17] LABS: Erythrocyte Sedimentation Rate 53 mm/hr (0-20)
[2021-04-15 14:35] VITALS: BP 130/74; PULSE 78; RESP 16
[2021-04-15 15:05] VITALS: BP 150/87; PULSE 84; RESP 16
[2021-04-15 15:35] VITALS: BP 134/81; PULSE 84; RESP 16
[2021-04-15 15:55] VITALS: BP 115/48; PULSE 74; RESP 16
== END 2021-04-15 16:25 | disposition home or self-care (01) ==
LOC: INF 12:55
PROVIDERS: PCP Physician Assistant; Visit Provider Physician Assistant
DX: E86.0 Dehydration (principal); G43.919 Migraine, unspecified, intractable, without status migrainosus
CPT/HCPCS: 80048; 85025; 85651; 96360; 96361; 96375

== ENCOUNTER → 2021-05-06 10:59 | Outpatient (CLI) | payer BC, SELFPAY ==
[2021-05-06 12:16] LABS: Basophils # 0.1 K/mm3 (0-0.2); Basophils % 1.4 % (0.1-2.0); Eosinophils # 0.1 K/mm3 (0.0-0.4); Eosinophils % 3.7 % (0.1-12.0); Hematocrit 43.6 % (37.0-47.0); Hemoglobin 13.8 g/dL (12.2-16.2); Lymphocytes # 0.7 K/mm3 (0.7-4.5); Mean Corpuscular HGB Conc 31.7 g/dL (31.8-35.4); Mean Corpuscular Hemoglobin 28.7 pg (27.0-31.2); Mean Corpuscular Volume 90.7 fl (81-99); Mean Platelet Volume 7.4 fl (7.4-10.4); Monocytes # 0.3 K/mm3 (0.1-1.0); Monocytes % 8.7 % (1.7-9.3); Neutrophils # 2.5 K/mm3 (1.8-7.8); Neutrophils % 67.2 % (37.0-80.0); Platelet Count 253 K/mm3 (142-424); Red Cell Distribution Width 12.8 % (11.5-17.5); White Blood Count 3.7 K/mm3 (4.8-10.8)
[2021-05-06 15:31] LABS: Strep Scrn Group A (Rapid) Negative (Negative)
== END ==
PROVIDERS: PCP Physician Assistant; Visit Provider Physician Assistant
DX: Z20.822 Contact with and (suspected) exposure to COVID-19 (principal); J02.9 Acute pharyngitis, unspecified
CPT/HCPCS: 36415; 85025; 87430; C9803; U0003; U0005

== ENCOUNTER → 2021-05-29 22:32 | Outpatient (CLI) | payer BC, SELFPAY ==
[2021-05-29 22:58] LABS: Basophils # 0.2 K/mm3 (0-0.2); Basophils % 1.6 % (0.1-2.0); Eosinophils # 0.3 K/mm3 (0.0-0.4); Hematocrit 44.1 % (37.0-47.0); Hemoglobin 14.5 g/dL (12.2-16.2); Lymphocytes # 1.1 K/mm3 (0.7-4.5); Lymphocytes % 11.5 % (10-50); Mean Corpuscular HGB Conc 32.9 g/dL (31.8-35.4); Mean Corpuscular Hemoglobin 29.1 pg (27.0-31.2); Mean Corpuscular Volume 88.6 fl (81-99); Mean Platelet Volume 7.4 fl (7.4-10.4); Monocytes # 0.6 K/mm3 (0.1-1.0); Monocytes % 6.3 % (1.7-9.3); Neutrophils # 7.4 K/mm3 (1.8-7.8); Neutrophils % 77.6 % (37.0-80.0); Platelet Count 376 K/mm3 (142-424); Red Blood Count 4.98 M/mm3 (4.20-5.40); Red Cell Distribution Width 14.1 % (11.5-17.5); White Blood Count 9.5 K/mm3 (4.8-10.8)
[2021-05-29 23:24] LABS: Alanine Aminotransferase 29 U/L (12-78); Albumin Level 4.1 g/dl (3.5-5.0); Albumin/Globulin Ratio 1.3 (1.1-1.8); Alkaline Phosphatase 116 U/L (38-126); Anion Gap 9.3 mEq/L (5-15); Aspartate Amino Transferase 31 U/L (14-36); Bilirubin,Total 0.3 mg/dl (0.2-1.3); Blood Urea Nitrogen 21 mg/dl (7-17); Calcium 9.3 mg/dl (8.4-10.2); Carbon Dioxide 32 mmol/L (22.0-30.0); Chloride 101 mmol/L (98-107); Estimated Glomerular Filt Rate 61 ml/min (>60); GFR (African American) 74 ML/MIN (>60); Globulin 3.2 g/dL (1.3-3.2); Glucose 86 mg/dl (74-100); Potassium 4.3 mmoL/L (3.5-5.1); Sodium 138 mmol/L (136-145); Total Protein,Serum 7.3 g/dl (6.3-8.2)
[2021-05-29 23:43] LABS: 25-OH Vitamin D, Total 42.6 ng/mL (30-100)
[2021-05-29 23:57] LABS: Thyroid Stimulating Hormone 3.78 uIU/mL (0.465-4.68)
[2021-05-30 00:15] LABS: Vitamin B12 639 pg/mL (239-931)
== END ==
PROVIDERS: PCP Physician Assistant; Visit Provider Physician Assistant
DX: Z20.822 Contact with and (suspected) exposure to COVID-19 (principal); U07.1 COVID-19
CPT/HCPCS: 36415; 80053; 82306; 82607; 84443; 85025; C9803; U0003; U0005

== ENCOUNTER → 2021-05-30 08:45 | Outpatient (CLI) | payer BC, SELFPAY ==
[2021-05-30 09:36] LABS: Coronavirus 19 IgG Antibody Positive (Negative); Coronavirus 19 IgM Antibody Negative (Negative)
== END ==
PROVIDERS: PCP Physician Assistant; Visit Provider Family Medicine
DX: Z20.822 Contact with and (suspected) exposure to COVID-19 (principal); U07.1 COVID-19
CPT/HCPCS: 36415; 86328; C9803; U0003; U0005

== ENCOUNTER → 2021-07-30 09:53 | Outpatient (CLI) | payer BC, SELFPAY ==
--- NOTE | 2021-07-30 09:56 | XR_ITS ---
PROCEDURE: XR CHEST 2V CLINICAL HISTORY: SOB COMPARISON: CR XR CHEST 2V from 11/28/2019 CR XR CHEST 2V from 05/26/2020 CR XR RIBS RT MIN 3V W CXR1V from 05/26/2020 FINDINGS: The cardiomediastinal silhouette and pulmonary vascularity are within normal limits. The lungs are clear without infiltrates, suspicious nodules, or pleural effusions. No acute bony abnormalities. IMPRESSION: No acute findings. Dictated by: Rajendra Saxena MD 07/30/2021 16:49 Rajendra Saxena MD in [place] 07/30/2021 16:51
== END ==
PROVIDERS: PCP Physician Assistant; Visit Provider Physician Assistant
DX: R06.02 Shortness of breath (principal)
CPT/HCPCS: 71046

== ENCOUNTER 2021-09-04 11:00 | Outpatient (RCR) | payer BC, SELFPAY | END 2021-09-04 11:05 | disposition home or self-care (01) | LOC: PT 11:00 | PROVIDERS: PCP Physician Assistant; Visit Provider Internal Medicine Hematology & Oncology | DX: C50.911 Malignant neoplasm of unspecified site of right female breast (principal); Z17.1 Estrogen receptor negative status [ER-]; I89.0 Lymphedema, not elsewhere classified | CPT/HCPCS: 97110; 97140; 97163; 97164; 97760 ==

== ENCOUNTER 2021-09-06 01:20 | Emergency (ER) | payer BC, SELFPAY ==
[2021-09-06 01:22] VITALS: BP 128/79; PULSE 115; RESP 20; TEMP 37.4; O2SAT 99; BMI 35.4
[2021-09-06 01:51] LABS: Influenza A, PCR Not Detected (NotDetected); Influenza B, PCR Not Detected (NotDetected)
[2021-09-06 02:00] VITALS: BP 134/91; O2SAT 98
--- NOTE | 2021-09-06 02:00 | HMH.EDGENADL ---
ED Disposition Clinical Impression: COVID-19 Disposition: Home, Self-Care Condition on Discharge: Fair Referrals: Sugar Herring PA [Primary Care Provider] - - Critical Care Critical Care Time: No Attestation: On 09/06/21, the high probability of a clinically significant, sudden or life threatening deterioration of the following system(s) required my full and direct attention, intervention and personal management. The time I documented below is in addition to time spent performing reported procedures but includes the following listed in this critical care notation. Medical Decision Making - Medical Records Medical records reviewed: Yes: I reviewed the patient's medical records. - Donald Inquiry Pt receiving controlled substance: No Vital Signs: 09/06/21 01:22 Temperature 99.4 F Temperature Source Oral Pulse Rate [Right Radial] 115 H Respiratory Rate 20 Blood Pressure [Left Arm] 128/79 Blood Pressure Mean [Left Arm] 95 Blood Pressure Source [Left Arm] Automatic Cuff Blood Pressure Position [Left Arm] Sitting 02 Sat by Pulse Oximetry 99 Oxygen Delivery Method Room Air - Lab Data Lab Results 09/06/21 01:30: SARS-CoV-2 (PCR) Detected A, Influenza A Untype (PCR) Not detected, Influenza Type B (PCR) Not detected Orders (Tests/Meds): ED MEDICATIONS Discontinued Medications Generic Name Dose Route Start Last Admin Trade Name Freq PRN Reason Stop Dose Admin Acetaminophen 1,000 mg 09/06/21 01:45 09/06/21 02:03 Acetaminophen 500mg Tab PO 09/06/21 01:46 1,000 mg ONCE ONE Administration Ibuprofen 600 mg 09/06/21 01:45 09/06/21 02:03 Ibuprofen 600 Mg Tablet PO 09/06/21 01:46 600 mg ONCE ONE Administration Medical Decision Narrative: Patient is a 41-year-old female present emergency department chief complaint of headache, fever, cough, congestion, sore throat. Differential diagnosis in patient with URI, COVID-19, influenza, patient has had symptoms for 2 days. Have lower suspicion for pneumonia at this current time. Plan to swab patient, treat her symptomatically with Motrin, Tylenol, patient had p.o. intake. Patient with some relief in symptoms after treatment. Patient positive for COVID-19. Discussed this with patient will discharge. General Adult HPI - General Chief complaint: Shortness of Breath/Dyspnea Stated complaint: sore throat,SOA,Chest hurts,fever Time Seen by Provider: 09/06/21 01:30 Mode of Arrival: Ambulatory Limitations: No Limitations Description of Symptoms (Recalled from ER Triage Doc. by RN): Pt reports fevers, productive (clear) cough, congestion, sore throat, nausea since last night. Pt sems concerned that she has COVID because her neice tested positive today. Pt denies chest pain. Denies abd pain. Denies vomiting or diarrhea. Denies hemoptysis. She endorses some SOA with exertion. Pt placed in COVID precautions - History of Present Illness HPI narrative: Patient is a 41-year-old female presents emerged department chief complaint of body aches, headache, fever of 103, sore throat and cough. Patient states symptoms began last night. She took Advil yesterday but has not taken anything today. She has presented to the emergency department because she sweats start a second round of chemotherapy, as well as get a port and she would like to get on top of it. She does note that she had a positive contact for COVID and her niece who she recently saw misdiagnosed with COVID yesterday. She does not have abdominal pain, emesis or diarrhea. She states that she takes Lasix and sometimes has extra fluid on. She has chest pain with cough but does not have chest pain otherwise. - Related Data Home Medications Medication Instructions Recorded Confirmed Levocetirizine Dihydrochloride 5 mg PO HS 08/27/18 04/15/21 Montelukast Sodium [Montelukast 10 mg PO HS 08/27/18 04/15/21 10mg Tab] Omeprazole [Omeprazole 20mg 20 mg PO DAILY 08/27/18 04/15/21 Capsule
[2021-09-06 02:22] LABS: Coronavirus 19, PCR Detected (NotDetected)
[2021-09-06 02:36] VITALS: BP 124/90; PULSE 111; O2SAT 97
[2021-09-06 03:00] VITALS: BP 132/81; PULSE 106; O2SAT 95
[2021-09-06 03:24] VITALS: BP 132/81; PULSE 92; RESP 18; TEMP 37.2; O2SAT 93
== END 2021-09-06 03:26 | disposition home or self-care (01) ==
PROVIDERS: Emergency Provider Emergency Medicine; PCP Physician Assistant
DX: U07.1 COVID-19 (principal); K21.9 Gastro-esophageal reflux disease without esophagitis; I10 Essential (primary) hypertension; E78.5 Hyperlipidemia, unspecified
CPT/HCPCS: 99282; C9803; U0003; U0005

== ENCOUNTER 2021-10-07 09:03 | Outpatient (CLI) | payer BC, SELFPAY ==
[2021-10-07 09:25] VITALS: BP 144/75; PULSE 91; RESP 16; TEMP 36.2; O2SAT 99
[2021-10-07 10:25] VITALS: BP 142/86; PULSE 85; RESP 16; O2SAT 99
--- NOTE | 2021-10-07 15:19 | PC.NURSE ---
0930-GAVE ZOFRAN 4MG IVP AT THIS TIME.
== END 2021-10-07 10:30 | disposition home or self-care (01) ==
LOC: INF 09:04
PROVIDERS: PCP Physician Assistant; Visit Provider Physician Assistant
DX: E86.0 Dehydration (principal)
CPT/HCPCS: 96360; 96375; J2405

== ENCOUNTER → 2023-03-25 11:27 | Outpatient (CLI) | payer BC, SELFPAY ==
--- NOTE | 2023-03-25 11:34 | XR_ITS ---
FINAL REPORT CLINICAL HISTORY: Lt hip pain COMPARISON: None FINDINGS: LEFT HIP: Two views of the left hip demonstrate no acute fracture or dislocation. The joint spaces appear normal. The visualized bony structures are well aligned. No soft tissue abnormality is seen. IMPRESSION: No acute bony abnormality. Reviewed, Interpreted and Dictated by Ulises Duggan III, MD Transcribed by Annette Lockwood Authenticated and [facility]
--- NOTE | 2023-03-25 11:34 | XR_ITS ---
FINAL REPORT CLINICAL HISTORY: Rt hip pain COMPARISON: None FINDINGS: RIGHT HIP 3 views of the right hip including an AP view of the pelvis demonstrate no acute fracture or dislocation. The joint spaces appear normal. The visualized bony structures are well aligned. No soft tissue abnormality is seen. IMPRESSION: No acute bony abnormality. Reviewed, Interpreted and Dictated by Ulises Duggan III, MD Transcribed by Annette Lockwood Authenticated and [facility]
== END ==
PROVIDERS: PCP Physician Assistant; Visit Provider Nurse Practitioner Family
DX: M25.551 Pain in right hip (principal); M25.552 Pain in left hip; C50.111 Malignant neoplasm of central portion of right female breast; Z17.1 Estrogen receptor negative status [ER-]; G89.3 Neoplasm related pain (acute) (chronic)
CPT/HCPCS: 73502

== ENCOUNTER → 2023-07-13 11:18 | Outpatient (CLI) | payer BC, SELFPAY ==
--- NOTE | 2023-07-13 11:21 | CA_ITS ---
FINAL REPORT TECHNIQUE: Color Doppler, duplex Doppler and compression sonography of the left lower extremity deep venous systems was performed. CLINICAL HISTORY: breast ca , chemo, recent hospitalization 07/02-07/05 for a Renal stent FUENTES. COMPARISON: None` FINDINGS: There is no evidence of deep venous thrombosis from the level of the groin to the calf. The veins are patent and compressible. IMPRESSION: No evidence of deep venous thrombosis left lower extremity. Reviewed, Interpreted and Dictated by Ulises Duggan III, MD Transcribed by Karly Bowens Authenticated and [facility]
== END ==
PROVIDERS: PCP Physician Assistant; Visit Provider Physician Assistant
DX: R60.0 Localized edema (principal)
CPT/HCPCS: 93971

== ENCOUNTER 2023-11-02 12:59 | Outpatient (CLI) | payer BC, SELFPAY ==
[2023-11-02 13:07] VITALS: BMI 30.9
[2023-11-02] MEDS: SODIUM CHLORIDE 0.9% 10ML FLUSH SYRINGE 10 ML IV (13:15)
[2023-11-02 13:44] LABS: Basophils # 0.1 K/mm3 (0-0.2); Basophils % 0.9 % (0.1-2.0); Eosinophils # 0.2 K/mm3 (0.0-0.4); Eosinophils % 2.3 % (0.1-12.0); Hemoglobin 13.2 g/dL (12.2-16.2); Lymphocytes # 0.4 K/mm3 (0.7-4.5); Lymphocytes % 6.1 % (10-50); Mean Corpuscular HGB Conc 32.9 g/dL (31.8-35.4); Mean Corpuscular Hemoglobin 30.1 pg (27.0-31.2); Mean Corpuscular Volume 91.6 fl (81-99); Monocytes # 0.5 K/mm3 (0.1-1.0); Monocytes % 8.2 % (1.7-9.3); Neutrophils # 5.1 K/mm3 (1.8-7.8); Neutrophils % 82.5 % (37.0-80.0); Platelet Count 221 K/mm3 (142-424); Red Blood Count 4.37 M/mm3 (4.20-5.40); Red Cell Distribution Width 14.6 % (11.5-17.5); White Blood Count 6.2 K/mm3 (4.8-10.8)
[2023-11-02 13:48] LABS: Chloride 105 mmol/L (98-107)
[2023-11-02 13:49] LABS: Potassium 3.5 mmoL/L (3.5-5.1); Sodium 136 mmol/L (136-145)
[2023-11-02 13:51] LABS: Alanine Aminotransferase 19 U/L (12-78); Aspartate Amino Transferase 38 U/L (14-36); Blood Urea Nitrogen 8 mg/dl (7-17); Creatinine Clearance Estimated 70 mL/min (50-200); Estimated Glomerular Filt Rate 45 ml/min (>60); GFR (African American) 54 ML/MIN (>60)
[2023-11-02 13:52] LABS: Albumin Level 4.2 g/dl (3.5-5.0); Albumin/Globulin Ratio 1.3 (1.1-1.8); Alkaline Phosphatase 223 U/L (38-126); Anion Gap 3.5 mEq/L (5-15); Bilirubin,Total 0.6 mg/dl (0.2-1.3); Calcium 9.2 mg/dl (8.4-10.2); Carbon Dioxide 31 mmol/L (22.0-30.0); Globulin 3.2 g/dL (1.3-3.2); Glucose 143 mg/dl (74-100); Magnesium 2.2 mg/dl (1.6-2.3); Total Protein,Serum 7.4 g/dl (6.3-8.2)
[2023-11-03 08:59] LABS: CEA 4.7 ng/mL (0.0-4.7)
== END 2023-11-02 13:28 | disposition home or self-care (01) ==
LOC: INF 13:01
PROVIDERS: PCP Physician Assistant
DX: C50.919 Malignant neoplasm of unspecified site of unspecified female breast (principal); C78.7 Secondary malignant neoplasm of liver and intrahepatic bile duct
CPT/HCPCS: 36591; 80053; 82378; 83735; 85025; J1642

== ENCOUNTER 2023-11-09 12:45 | Outpatient (CLI) | payer BC, SELFPAY ==
[2023-11-09 13:05] VITALS: BMI 30.9
[2023-11-09] MEDS: SODIUM CHLORIDE 0.9% 10ML FLUSH SYRINGE 10 ML IV (13:25)
[2023-11-09 13:39] LABS: Basophils % 0.5 % (0.1-2.0); Eosinophils # 0.2 K/mm3 (0.0-0.4); Eosinophils % 3.5 % (0.1-12.0); Hematocrit 37.8 % (37.0-47.0); Hemoglobin 12.1 g/dL (12.2-16.2); Lymphocytes # 0.4 K/mm3 (0.7-4.5); Lymphocytes % 7.9 % (10-50); Mean Corpuscular HGB Conc 32.1 g/dL (31.8-35.4); Mean Corpuscular Hemoglobin 29.6 pg (27.0-31.2); Mean Corpuscular Volume 92.2 fl (81-99); Mean Platelet Volume 8.9 fl (7.4-10.4); Monocytes # 0.6 K/mm3 (0.1-1.0); Monocytes % 9.9 % (1.7-9.3); Neutrophils # 4.3 K/mm3 (1.8-7.8); Neutrophils % 78.2 % (37.0-80.0); Platelet Count 188 K/mm3 (142-424); Red Cell Distribution Width 14.6 % (11.5-17.5); White Blood Count 5.5 K/mm3 (4.8-10.8)
[2023-11-09 14:01] LABS: Chloride 107 mmol/L (98-107); Potassium 3.5 mmoL/L (3.5-5.1); Sodium 137 mmol/L (136-145)
[2023-11-09 14:04] LABS: Alanine Aminotransferase 17 U/L (12-78); Alkaline Phosphatase 189 U/L (38-126); Anion Gap 1.5 mEq/L (5-15); Aspartate Amino Transferase 33 U/L (14-36); Bilirubin,Total 0.4 mg/dl (0.2-1.3); Blood Urea Nitrogen 6 mg/dl (7-17); Calcium 8.8 mg/dl (8.4-10.2); Carbon Dioxide 32 mmol/L (22.0-30.0); Creatinine Clearance Estimated 65 mL/min (50-200); Estimated Glomerular Filt Rate 41 ml/min (>60); GFR (African American) 50 ML/MIN (>60); Glucose 92 mg/dl (74-100)
[2023-11-09 14:05] LABS: Albumin Level 3.8 g/dl (3.5-5.0); Albumin/Globulin Ratio 1.3 (1.1-1.8); Globulin 2.9 g/dL (1.3-3.2); Total Protein,Serum 6.7 g/dl (6.3-8.2)
[2023-11-10 05:09] LABS: CEA 6.1 ng/mL (0.0-4.7)
== END 2023-11-09 13:30 | disposition home or self-care (01) ==
LOC: INF 12:47
PROVIDERS: PCP Physician Assistant; Visit Provider Internal Medicine Medical Oncology
DX: C50.911 Malignant neoplasm of unspecified site of right female breast (principal); C78.7 Secondary malignant neoplasm of liver and intrahepatic bile duct; Z79.899 Other long term (current) drug therapy; Z17.1 Estrogen receptor negative status [ER-]
CPT/HCPCS: 36591; 80053; 82378; 83735; 85025; J1642

== ENCOUNTER 2023-11-16 12:41 | Outpatient (CLI) | payer BC, SELFPAY ==
[2023-11-16 12:53] VITALS: BMI 30.8
[2023-11-16] MEDS: SODIUM CHLORIDE 0.9% 10ML FLUSH SYRINGE 10 ML IV (13:10)
[2023-11-16 13:29] LABS: Basophils % 0.6 % (0.1-2.0); Eosinophils # 0.3 K/mm3 (0.0-0.4); Eosinophils % 3.7 % (0.1-12.0); Hematocrit 35.8 % (37.0-47.0); Hemoglobin 11.5 g/dL (12.2-16.2); Lymphocytes # 0.6 K/mm3 (0.7-4.5); Lymphocytes % 8.4 % (10-50); Mean Corpuscular HGB Conc 32.3 g/dL (31.8-35.4); Mean Corpuscular Hemoglobin 29.8 pg (27.0-31.2); Mean Corpuscular Volume 92.4 fl (81-99); Mean Platelet Volume 8.6 fl (7.4-10.4); Monocytes # 0.6 K/mm3 (0.1-1.0); Monocytes % 9.4 % (1.7-9.3); Neutrophils # 5.3 K/mm3 (1.8-7.8); Neutrophils % 77.9 % (37.0-80.0); Platelet Count 227 K/mm3 (142-424); Red Blood Count 3.87 M/mm3 (4.20-5.40); Red Cell Distribution Width 14.7 % (11.5-17.5); White Blood Count 6.8 K/mm3 (4.8-10.8)
[2023-11-16 13:36] LABS: Magnesium 2.2 mg/dl (1.6-2.3)
[2023-11-16 15:47] LABS: Chloride 106 mmol/L (98-107)
[2023-11-16 15:48] LABS: Potassium 3.9 mmoL/L (3.5-5.1); Sodium 138 mmol/L (136-145)
[2023-11-16 15:50] LABS: Alanine Aminotransferase 21 U/L (12-78); Albumin Level 3.4 g/dl (3.5-5.0); Albumin/Globulin Ratio 1.1 (1.1-1.8); Alkaline Phosphatase 165 U/L (38-126); Anion Gap 3.9 mEq/L (5-15); Aspartate Amino Transferase 34 U/L (14-36); Bilirubin,Total 0.3 mg/dl (0.2-1.3); Blood Urea Nitrogen 11 mg/dl (7-17); Carbon Dioxide 32 mmol/L (22.0-30.0); Creatinine Clearance Estimated 60 mL/min (50-200); Estimated Glomerular Filt Rate 38 ml/min (>60); GFR (African American) 46 ML/MIN (>60); Globulin 3.2 g/dL (1.3-3.2); Glucose 117 mg/dl (74-100); Total Protein,Serum 6.6 g/dl (6.3-8.2)
[2023-11-16 15:51] LABS: Calcium 8.9 mg/dl (8.4-10.2)
[2023-11-17 14:57] LABS: CEA 4.8 ng/mL (0.0-4.7)
== END 2023-11-16 13:20 | disposition home or self-care (01) ==
LOC: INF 12:42
PROVIDERS: PCP Physician Assistant; Visit Provider Internal Medicine Medical Oncology
DX: C50.911 Malignant neoplasm of unspecified site of right female breast (principal); Z17.1 Estrogen receptor negative status [ER-]; C78.7 Secondary malignant neoplasm of liver and intrahepatic bile duct; Z45.2 Encounter for adjustment and management of vascular access device
CPT/HCPCS: 36591; 80053; 82378; 83735; 85025; J1642

== ENCOUNTER 2023-11-23 13:02 | Outpatient (CLI) | payer BC, SELFPAY ==
[2023-11-23 13:08] VITALS: BMI 31.3
[2023-11-23 13:45] LABS: Basophils # 0.1 K/mm3 (0-0.2); Basophils % 0.9 % (0.1-2.0); Eosinophils # 0.3 K/mm3 (0.0-0.4); Eosinophils % 3.9 % (0.1-12.0); Hematocrit 39.1 % (37.0-47.0); Hemoglobin 12.3 g/dL (12.2-16.2); Mean Corpuscular HGB Conc 31.5 g/dL (31.8-35.4); Mean Corpuscular Hemoglobin 29.2 pg (27.0-31.2); Mean Corpuscular Volume 92.7 fl (81-99); Mean Platelet Volume 7.7 fl (7.4-10.4); Monocytes # 0.5 K/mm3 (0.1-1.0); Monocytes % 7.4 % (1.7-9.3); Neutrophils % 72.9 % (37.0-80.0); Platelet Count 297 K/mm3 (142-424); Red Blood Count 4.21 M/mm3 (4.20-5.40); White Blood Count 6.9 K/mm3 (4.8-10.8)
[2023-11-23 14:04] LABS: Chloride 106 mmol/L (98-107); Potassium 4.2 mmoL/L (3.5-5.1); Sodium 138 mmol/L (136-145)
[2023-11-23 14:06] LABS: Blood Urea Nitrogen 12 mg/dl (7-17); Creatinine Clearance Estimated 61 mL/min (50-200); Estimated Glomerular Filt Rate 38 ml/min (>60); GFR (African American) 46 ML/MIN (>60)
[2023-11-23 14:07] LABS: Alanine Aminotransferase 24 U/L (12-78); Albumin/Globulin Ratio 1.2 (1.1-1.8); Alkaline Phosphatase 196 U/L (38-126); Anion Gap 6.2 mEq/L (5-15); Aspartate Amino Transferase 43 U/L (14-36); Bilirubin,Total 0.4 mg/dl (0.2-1.3); Calcium 9.6 mg/dl (8.4-10.2); Carbon Dioxide 30 mmol/L (22.0-30.0); Globulin 3.4 g/dL (1.3-3.2); Glucose 136 mg/dl (74-100); Total Protein,Serum 7.4 g/dl (6.3-8.2)
== END 2023-11-23 13:25 | disposition home or self-care (01) ==
LOC: INF 13:02
PROVIDERS: PCP Physician Assistant; Visit Provider Internal Medicine Medical Oncology
DX: C50.911 Malignant neoplasm of unspecified site of right female breast (principal)
CPT/HCPCS: 36591; 80053; 85025; J1642

== ENCOUNTER 2023-11-25 08:31 | Outpatient (CLI) | payer BC, SELFPAY ==
[2023-11-25] VITALS (14 sets, daily range): BP systolic 116–170; BP diastolic 71–109; PULSE 57–81; RESP 16–17; TEMP 36.4; O2SAT 95–99
[2023-11-25] MEDS: SODIUM CHLORIDE 0.9% 50ML BAG 50 ML IV (08:47)
[2023-11-25] MEDS: DEXAMETHASONE 4MG TABLET 12 MG PO (08:47)
[2023-11-25] MEDS: FAMOTIDINE 20MG TABLET 20 MG PO (08:49)
[2023-11-25] MEDS: LORazepam 0.5MG TABLET 0.5 MG (08:50)
[2023-11-25] MEDS: diphenhydrAMINE 50MG CAPSULE 50 MG PO (08:50)
[2023-11-25] MEDS: SODIUM BICARBONATE IV (09:34)
[2023-11-25] MEDS: [UNRECOGNIZED DRUG - OTHER] IV (09:34)
[2023-11-25] MEDS: SODIUM CHLORIDE 0.9% IV (09:34)
== END 2023-11-25 13:10 | disposition home or self-care (01) ==
LOC: INF 08:31
PROVIDERS: PCP Physician Assistant; Visit Provider Internal Medicine Medical Oncology
DX: C50.911 Malignant neoplasm of unspecified site of right female breast (principal); Z17.1 Estrogen receptor negative status [ER-]
CPT/HCPCS: 96413; 96415; J1642; J9207

== ENCOUNTER 2023-11-29 13:03 | Outpatient (CLI) | payer BC, SELFPAY ==
[2023-11-29 13:09] VITALS: BMI 31.3
[2023-11-29] MEDS: SODIUM CHLORIDE 0.9% 10ML FLUSH SYRINGE 10 ML IV (13:26)
[2023-11-29 13:32] LABS: Basophils # 0.1 K/mm3 (0-0.2); Basophils % 0.9 % (0.1-2.0); Eosinophils # 0.5 K/mm3 (0.0-0.4); Hematocrit 38.4 % (37.0-47.0); Hemoglobin 12.5 g/dL (12.2-16.2); Lymphocytes # 0.6 K/mm3 (0.7-4.5); Lymphocytes % 10.7 % (10-50); Mean Corpuscular HGB Conc 32.6 g/dL (31.8-35.4); Mean Platelet Volume 8.4 fl (7.4-10.4); Monocytes # 0.1 K/mm3 (0.1-1.0); Monocytes % 1.6 % (1.7-9.3); Neutrophils # 4.2 K/mm3 (1.8-7.8); Neutrophils % 77.9 % (37.0-80.0); Platelet Count 218 K/mm3 (142-424); Red Blood Count 4.32 M/mm3 (4.20-5.40); Red Cell Distribution Width 14.7 % (11.5-17.5); White Blood Count 5.4 K/mm3 (4.8-10.8)
== END 2023-11-29 13:27 | disposition home or self-care (01) ==
LOC: INF 13:03
PROVIDERS: PCP Physician Assistant; Visit Provider Internal Medicine Medical Oncology
DX: C50.911 Malignant neoplasm of unspecified site of right female breast (principal); Z17.1 Estrogen receptor negative status [ER-]; Z45.2 Encounter for adjustment and management of vascular access device
CPT/HCPCS: 36591; 85025; J1642

== ENCOUNTER 2023-12-07 13:18 | Outpatient (CLI) | payer BC, SELFPAY ==
[2023-12-07 13:34] VITALS: BMI 31.3
[2023-12-07] MEDS: SODIUM CHLORIDE 0.9% 10ML FLUSH SYRINGE 10 ML IV (13:58)
[2023-12-07 14:04] LABS: Basophils % 0.8 % (0.1-2.0); Eosinophils # 0.2 K/mm3 (0.0-0.4); Hematocrit 31.3 % (37.0-47.0); Hemoglobin 10.8 g/dL (12.2-16.2); Lymphocytes # 0.4 K/mm3 (0.7-4.5); Lymphocytes % 26.1 % (10-50); Mean Corpuscular HGB Conc 34.6 g/dL (31.8-35.4); Mean Corpuscular Volume 86.7 fl (81-99); Mean Platelet Volume 8.6 fl (7.4-10.4); Monocytes # 0.1 K/mm3 (0.1-1.0); Monocytes % 7.2 % (1.7-9.3); Neutrophils # 0.7 K/mm3 (1.8-7.8); Neutrophils % 53.9 % (37.0-80.0); Platelet Count 178 K/mm3 (142-424); Red Blood Count 3.61 M/mm3 (4.20-5.40); Red Cell Distribution Width 14.8 % (11.5-17.5); White Blood Count 1.4 K/mm3 (4.8-10.8)
== END 2023-12-07 14:01 | disposition home or self-care (01) ==
LOC: INF 13:18
PROVIDERS: PCP Physician Assistant; Visit Provider Internal Medicine Medical Oncology
DX: C50.911 Malignant neoplasm of unspecified site of right female breast (principal); Z45.2 Encounter for adjustment and management of vascular access device
CPT/HCPCS: 36591; 85025; J1642

== ENCOUNTER 2023-12-15 09:01 | Outpatient (CLI) | payer BC, SELFPAY ==
[2023-12-15] VITALS (15 sets, daily range): BP systolic 142–191; BP diastolic 86–110; PULSE 60–74; RESP 15–16; TEMP 36.1–36.9; O2SAT 94; BMI 31.3
[2023-12-15 09:30] LABS: Basophils # 0.1 K/mm3 (0-0.2); Basophils % 2.5 % (0.1-2.0); Eosinophils # 0.1 K/mm3 (0.0-0.4); Eosinophils % 4.9 % (0.1-12.0); Hematocrit 32.8 % (37.0-47.0); Hemoglobin 10.6 g/dL (12.2-16.2); Lymphocytes # 0.5 K/mm3 (0.7-4.5); Mean Corpuscular HGB Conc 32.5 g/dL (31.8-35.4); Mean Corpuscular Hemoglobin 29.7 pg (27.0-31.2); Mean Corpuscular Volume 91.4 fl (81-99); Mean Platelet Volume 8.4 fl (7.4-10.4); Monocytes # 0.3 K/mm3 (0.1-1.0); Monocytes % 13.8 % (1.7-9.3); Neutrophils # 1.5 K/mm3 (1.8-7.8); Neutrophils % 59.9 % (37.0-80.0); Platelet Count 388 K/mm3 (142-424); Red Blood Count 3.58 M/mm3 (4.20-5.40); Red Cell Distribution Width 16.6 % (11.5-17.5); White Blood Count 2.5 K/mm3 (4.8-10.8)
[2023-12-15 09:40] LABS: Alanine Aminotransferase 16 U/L (12-78); Albumin Level 3.8 g/dl (3.5-5.0); Albumin/Globulin Ratio 1.3 (1.1-1.8); Alkaline Phosphatase 125 U/L (38-126); Anion Gap 6.4 mEq/L (5-15); Aspartate Amino Transferase 31 U/L (14-36); Bilirubin,Total 0.3 mg/dl (0.2-1.3); Blood Urea Nitrogen 13 mg/dl (7-17); Calcium 9.2 mg/dl (8.4-10.2); Carbon Dioxide 32 mmol/L (22.0-30.0); Chloride 106 mmol/L (98-107); Creatinine Clearance Estimated 51 mL/min (50-200); Estimated Glomerular Filt Rate 31 ml/min (>60); GFR (African American) 37 ML/MIN (>60); Glucose 119 mg/dl (74-100); Potassium 4.4 mmoL/L (3.5-5.1); Sodium 140 mmol/L (136-145); Total Protein,Serum 6.8 g/dl (6.3-8.2)
[2023-12-15] MEDS: DEXAMETHASONE 4MG TABLET 12 MG (10:24)
[2023-12-15] MEDS: 0.9 % SODIUM CHLORIDE 50 ML 100 ML IV (10:25)
[2023-12-15] MEDS: diphenhydrAMINE 50MG CAPSULE 50 MG PO (10:25)
[2023-12-15] MEDS: LORazepam 0.5MG TABLET 0.5 MG (10:25)
[2023-12-15] MEDS: FAMOTIDINE 20MG TABLET 20 MG (10:25)
[2023-12-15] MEDS: [UNRECOGNIZED DRUG - OTHER] IV (11:19)
[2023-12-15] MEDS: SODIUM CHLORIDE 0.9% IV (11:19)
[2023-12-15] MEDS: SODIUM BICARBONATE IV (11:19)
== END 2023-12-15 15:15 | disposition home or self-care (01) ==
PROVIDERS: PCP Physician Assistant; Visit Provider Internal Medicine Medical Oncology
DX: C50.911 Malignant neoplasm of unspecified site of right female breast (principal); Z17.1 Estrogen receptor negative status [ER-]
CPT/HCPCS: 80053; 85025; 96413; 96415; J1642; J9207

== ENCOUNTER 2024-01-04 09:56 | Outpatient (CLI) | payer BC, SELFPAY ==
[2024-01-04] VITALS (8 sets, daily range): BP systolic 116–146; BP diastolic 81–95; PULSE 67–81; RESP 18; TEMP 36.6; O2SAT 96–97; BMI 26.9
[2024-01-04 10:23] LABS: Basophils # 0.1 K/mm3 (0-0.2); Basophils % 2.7 % (0.1-2.0); Eosinophils # 0.1 K/mm3 (0.0-0.4); Eosinophils % 6.6 % (0.1-12.0); Hematocrit 32.1 % (37.0-47.0); Hemoglobin 10.4 g/dL (12.2-16.2); Lymphocytes # 0.4 K/mm3 (0.7-4.5); Lymphocytes % 19.2 % (10-50); Mean Corpuscular HGB Conc 32.3 g/dL (31.8-35.4); Mean Corpuscular Hemoglobin 29.3 pg (27.0-31.2); Mean Corpuscular Volume 90.6 fl (81-99); Mean Platelet Volume 8.1 fl (7.4-10.4); Monocytes # 0.4 K/mm3 (0.1-1.0); Monocytes % 17.1 % (1.7-9.3); Neutrophils # 1.1 K/mm3 (1.8-7.8); Neutrophils % 54.4 % (37.0-80.0); Platelet Count 425 K/mm3 (142-424); Red Blood Count 3.54 M/mm3 (4.20-5.40); Red Cell Distribution Width 17.6 % (11.5-17.5); White Blood Count 2.1 K/mm3 (4.8-10.8)
[2024-01-04 10:39] LABS: Alanine Aminotransferase 18 U/L (12-78); Albumin Level 3.9 g/dl (3.5-5.0); Albumin/Globulin Ratio 1.3 (1.1-1.8); Alkaline Phosphatase 120 U/L (38-126); Anion Gap 12.1 mEq/L (5-15); Aspartate Amino Transferase 36 U/L (14-36); Bilirubin,Total 0.3 mg/dl (0.2-1.3); Blood Urea Nitrogen 14 mg/dl (7-17); Calcium 9.3 mg/dl (8.4-10.2); Carbon Dioxide 29 mmol/L (22.0-30.0); Chloride 104 mmol/L (98-107); Creatinine Clearance Estimated 44 mL/min (50-200); Estimated Glomerular Filt Rate 31 ml/min (>60); GFR (African American) 37 ML/MIN (>60); Globulin 3.1 g/dL (1.3-3.2); Glucose 110 mg/dl (74-100); Potassium 4.1 mmoL/L (3.5-5.1); Sodium 141 mmol/L (136-145)
[2024-01-04] MEDS: DEXAMETHASONE 4MG TABLET 12 MG (11:13)
[2024-01-04] MEDS: diphenhydrAMINE 50MG CAPSULE 50 MG PO (11:13)
[2024-01-04] MEDS: FAMOTIDINE 20MG TABLET 20 MG (11:13)
[2024-01-04] MEDS: 0.9 % SODIUM CHLORIDE 50 ML 100 ML IV (11:49)
[2024-01-04] MEDS: SODIUM CHLORIDE 0.9% IV (11:49)
[2024-01-04] MEDS: [UNRECOGNIZED DRUG - OTHER] IV (11:49)
[2024-01-04] MEDS: SODIUM BICARBONATE IV (11:49)
[2024-01-04] MEDS: SODIUM CHLORIDE 0.9% 10ML FLUSH SYRINGE 10 ML IV (15:05)
== END 2024-01-04 23:59 | disposition home or self-care (01) ==
LOC: INF 09:57
PROVIDERS: PCP Physician Assistant; Visit Provider Internal Medicine Medical Oncology
DX: C50.911 Malignant neoplasm of unspecified site of right female breast (principal); C78.7 Secondary malignant neoplasm of liver and intrahepatic bile duct; Z17.1 Estrogen receptor negative status [ER-]; Z79.899 Other long term (current) drug therapy
CPT/HCPCS: 80053; 85025; 96413; 96415; J1642; J9207

== ENCOUNTER 2024-01-19 07:52 | Outpatient (CLI) | payer BC, SELFPAY ==
--- NOTE | 2024-01-19 07:55 | CT_ITS ---
FINAL REPORT CLINICAL HISTORY: BREAST CANCER FINDINGS: CT CHEST WITH CONTRAST TECHNIQUE: After the administration of intravenous contrast, axial images through the chest were performed by computed tomography. This study was performed with techniques to keep radiation doses as low as reasonably achievable, (ALARA). Individualized dose reduction techniques using automated exposure control or adjustment of mA and/or kV according to the patient's size were employed. FINDINGS: There is an ill-defined density in the right lower lobe retrohilar region, favor inflammatory over neoplastic. Abnormality measures up to 15 mm on image 28. There is a tiny nodule, likely an intrafissural lymph node, in the right lung base on image 39. There is a 3 mm right lower lobe nodule near the major fissure on image 25. There is bilateral axillary adenopathy. The largest right axillary lymph node measures 14 mm. The largest left axillary node measures 15 mm. There is stranding surrounding the right axillary vein which could indicate thrombus. Mild bilateral hilar adenopathy is noted. A right anterior lymph node measures 24 mm. A left posterior hilar node measures 27 x 17 mm. A right precarinal lymph node measures 15 mm. There are postoperative changes from mastectomy. A soft tissue density along the right chest wall is likely postoperative scar. IMPRESSION: 1. Intrathoracic and bilateral axillary adenopathy is nonspecific for reactive or metastatic. 2. Stranding surrounding the right axillary vein could indicate venous thrombosis. Consider Doppler venous exam. Reviewed, Interpreted and Dictated by Keri Ambrose MD Transcribed by Helene Gordon Authenticated and [facility]
--- NOTE | 2024-01-19 07:55 | CT_ITS ---
FINAL REPORT TECHNIQUE: Oral and IV contrast enhanced exam CLINICAL HISTORY: BREAST CANCER FINDINGS: ABDOMEN: There is mild left hydronephrosis with a left internal ureteral stent present. The liver, spleen, adrenal glands, and pancreas are normal. There is mild fecal impaction. There is upper abdominal adenopathy in the rosie hepatis, celiac axis, and retroperitoneum. A right celiac axis lymph node on image 37 measures 26 mm. An aortocaval node on image 47 measures 25 x 20 mm. There is extensive retroperitoneal adenopathy in the retrocaval, aortocaval and left para-aortic region. There are near confluent left para-aortic lymph nodes on image 61 measuring 29 x 31 mm. PELVIS: Retroperitoneal adenopathy extends along the iliac chains. And iliac lymph node at the aortic bifurcation measures 16 mm. The uterus is normal. The ovaries are significantly enlarged. A metastatic lesion to the ovaries is not excluded. The left ovary measures 4.9 x 3.7 cm. Trace free fluid is noted in the pelvis. The left internal ureteral stent is noted in the bladder. IMPRESSION: 1. Extensive adenopathy of the retroperitoneum extending into the pelvis suspicious for neoplastic adenopathy. 2. Bilateral ovarian enlargement with soft tissue density may indicate metastatic disease. 3. No evidence of liver metastases. 4. Left sided hydronephrosis. Reviewed, Interpreted and Dictated by Keri Ambrose MD Transcribed by Helene Gordon Authenticated and [facility]
[2024-01-19] MEDS: IOPAMIDOL-370 (76%);100ML BOTTLE 50 ML IV (08:38)
[2024-01-19] MEDS: SODIUM CHLORIDE 0.9% 10ML SYR (RAD ONLY) 10 ML IV (08:38)
[2024-01-19] MEDS: BARIUM SULFATE(READI-CAT2);450ML BOTTLE 450 ML PO (08:39)
[2024-01-19] MEDS: SODIUM CHLORIDE 0.9% 10ML FLUSH SYRINGE 10 ML IV (09:05)
== END 2024-01-19 23:59 | disposition home or self-care (01) ==
LOC: RAD 07:52
PROVIDERS: PCP Physician Assistant; Visit Provider Internal Medicine Medical Oncology
DX: C50.919 Malignant neoplasm of unspecified site of unspecified female breast (principal)
CPT/HCPCS: 71260; 74177; J1642; Q9967

== ENCOUNTER 2024-01-25 09:34 | Outpatient (CLI) | payer BC, SELFPAY ==
[2024-01-25 09:39] VITALS: BMI 32.1
[2024-01-25 10:03] LABS: Basophils # 0.1 K/mm3 (0-0.2); Basophils % 2.8 % (0.1-2.0); Eosinophils # 0.2 K/mm3 (0.0-0.4); Eosinophils % 6.7 % (0.1-12.0); Hematocrit 31.5 % (37.0-47.0); Hemoglobin 10.1 g/dL (12.2-16.2); Lymphocytes # 0.5 K/mm3 (0.7-4.5); Lymphocytes % 17.2 % (10-50); Mean Corpuscular HGB Conc 31.9 g/dL (31.8-35.4); Mean Corpuscular Volume 90.9 fl (81-99); Mean Platelet Volume 8.8 fl (7.4-10.4); Monocytes # 0.3 K/mm3 (0.1-1.0); Monocytes % 11.9 % (1.7-9.3); Neutrophils # 1.6 K/mm3 (1.8-7.8); Neutrophils % 61.4 % (37.0-80.0); Platelet Count 414 K/mm3 (142-424); Red Blood Count 3.47 M/mm3 (4.20-5.40); Red Cell Distribution Width 18.2 % (11.5-17.5); White Blood Count 2.7 K/mm3 (4.8-10.8)
[2024-01-25 10:10] LABS: Chloride 103 mmol/L (98-107); Sodium 139 mmol/L (136-145)
[2024-01-25 10:13] LABS: Alanine Aminotransferase 21 U/L (12-78); Albumin Level 3.8 g/dl (3.5-5.0); Albumin/Globulin Ratio 1.3 (1.1-1.8); Alkaline Phosphatase 113 U/L (38-126); Aspartate Amino Transferase 38 U/L (14-36); Bilirubin,Total 0.2 mg/dl (0.2-1.3); Blood Urea Nitrogen 12 mg/dl (7-17); Carbon Dioxide 30 mmol/L (22.0-30.0); Creatinine Clearance Estimated 52 mL/min (50-200); Estimated Glomerular Filt Rate 31 ml/min (>60); GFR (African American) 37 ML/MIN (>60); Total Protein,Serum 6.8 g/dl (6.3-8.2)
[2024-01-25 10:14] LABS: Calcium 9.2 mg/dl (8.4-10.2); Glucose 118 mg/dl (74-100)
[2024-02-01 11:05] LABS: Miscellaneous Test SCANNED IMAGE
== END 2024-01-25 10:50 | disposition home or self-care (01) ==
LOC: INF 09:35
PROVIDERS: PCP Physician Assistant; Visit Provider Internal Medicine Medical Oncology
DX: C50.911 Malignant neoplasm of unspecified site of right female breast (principal); C77.9 Secondary and unspecified malignant neoplasm of lymph node, unspecified; Z17.1 Estrogen receptor negative status [ER-]; Z90.13 Acquired absence of bilateral breasts and nipples; Z79.01 Long term (current) use of anticoagulants
CPT/HCPCS: 36591; 80053; 85025; J1642

== ENCOUNTER 2024-02-01 09:03 | Outpatient (CLI) | payer BC, SELFPAY ==
[2024-02-01 09:09] VITALS: BMI 32.8
[2024-02-01] MEDS: 0.9 % SODIUM CHLORIDE 50 ML 100 ML IV (09:15)
[2024-02-01] MEDS: PROCHLORPERAZINE 10MG TABLET 10 MG PO (09:15)
[2024-02-01] MEDS: VINORELBINE TARTRATE IV (09:48)
[2024-02-01] MEDS: SODIUM CHLORIDE 0.9% IV (09:48)
[2024-02-01 09:55] VITALS: BP 135/82; PULSE 71; RESP 17; TEMP 36.2; O2SAT 98
[2024-02-01 10:05] VITALS: BP 163/83; PULSE 76; RESP 16; TEMP 36.1
== END 2024-02-01 10:40 | disposition home or self-care (01) ==
LOC: INF 09:03
PROVIDERS: PCP Physician Assistant; Visit Provider Internal Medicine Medical Oncology
DX: Z51.11 Encounter for antineoplastic chemotherapy (principal); C50.911 Malignant neoplasm of unspecified site of right female breast; C77.9 Secondary and unspecified malignant neoplasm of lymph node, unspecified; Z17.1 Estrogen receptor negative status [ER-]; Z79.899 Other long term (current) drug therapy; Z90.13 Acquired absence of bilateral breasts and nipples; Z79.01 Long term (current) use of anticoagulants
CPT/HCPCS: 96409; J1642; J9390; Q0164

== ENCOUNTER 2024-02-08 12:18 | Outpatient (CLI) | payer BC, SELFPAY ==
[2024-02-08 12:26] VITALS: BMI 32.8
[2024-02-08] MEDS: SODIUM CHLORIDE 0.9% 10ML FLUSH SYRINGE 10 ML IV (12:35)
[2024-02-08 12:55] LABS: Basophils # 0.1 K/mm3 (0-0.2); Basophils % 1.9 % (0.1-2.0); Eosinophils # 0.1 K/mm3 (0.0-0.4); Eosinophils % 3.7 % (0.1-12.0); Hematocrit 30.2 % (37.0-47.0); Hemoglobin 9.8 g/dL (12.2-16.2); Lymphocytes # 0.4 K/mm3 (0.7-4.5); Lymphocytes % 13.9 % (10-50); Mean Corpuscular HGB Conc 32.5 g/dL (31.8-35.4); Mean Corpuscular Hemoglobin 29.7 pg (27.0-31.2); Mean Corpuscular Volume 91.5 fl (81-99); Mean Platelet Volume 8.6 fl (7.4-10.4); Monocytes # 0.1 K/mm3 (0.1-1.0); Neutrophils # 2.3 K/mm3 (1.8-7.8); Neutrophils % 77.5 % (37.0-80.0); Platelet Count 240 K/mm3 (142-424); Red Cell Distribution Width 18.1 % (11.5-17.5); White Blood Count 2.9 K/mm3 (4.8-10.8)
[2024-02-08 12:57] LABS: Chloride 104 mmol/L (98-107); Potassium 4.3 mmoL/L (3.5-5.1); Sodium 139 mmol/L (136-145)
[2024-02-08 12:59] LABS: Blood Urea Nitrogen 16 mg/dl (7-17); Creatinine Clearance Estimated 56 mL/min (50-200); Estimated Glomerular Filt Rate 33 ml/min (>60); GFR (African American) 40 ML/MIN (>60)
[2024-02-08 13:00] LABS: Alanine Aminotransferase 19 U/L (12-78); Albumin Level 4.4 g/dl (3.5-5.0); Albumin/Globulin Ratio 1.3 (1.1-1.8); Alkaline Phosphatase 131 U/L (38-126); Anion Gap 11.3 mEq/L (5-15); Aspartate Amino Transferase 33 U/L (14-36); Bilirubin,Total 0.3 mg/dl (0.2-1.3); Carbon Dioxide 28 mmol/L (22.0-30.0); Globulin 3.3 g/dL (1.3-3.2); Total Protein,Serum 7.7 g/dl (6.3-8.2)
[2024-02-08 13:01] LABS: Calcium 9.6 mg/dl (8.4-10.2); Glucose 104 mg/dl (74-100)
[2024-02-08] MEDS: 0.9 % SODIUM CHLORIDE 50 ML 100 ML IV (13:13)
[2024-02-08] MEDS: PROCHLORPERAZINE 10MG TABLET 10 MG PO (13:13)
--- NOTE | 2024-02-08 15:28 | PC.NURSE ---
1315-PREMEDICATED WITH COMPAZINE 10MG PO AT THIS TIME. 1345-DR DISLA'S NURSE, AMARILIS PAGAN, RN CALLED TO INSTRUCT NOT TO GIVE CHEMO INFUSION TODAY. PT PREVIOUSLY VOICED COMPLAINTS OF NEUROPATHY IN HANDS THAT SHE REPORTS HAS BEEN GOING ON FOR 2-3 WEEKS. STATES THEY FEEL LIKE THEY ARE ASLEEP AND PAIN IS THROBBING. AMARILIS STATED THAT DR DISLA WILL CALL IN GABAPENTIN FOR NEUROPATHY AND PT SHOULD RETURN IN 1 WEEK FOR LABS AND POSSIBLY VINORELBINE IF LABS ARE WITHIN PARAMETERS AND NEUROPATHY IS IMPROVED.
== END 2024-02-08 14:00 | disposition home or self-care (01) ==
LOC: INF 12:20
PROVIDERS: PCP Physician Assistant; Visit Provider Internal Medicine Medical Oncology
DX: C50.911 Malignant neoplasm of unspecified site of right female breast (principal); C77.9 Secondary and unspecified malignant neoplasm of lymph node, unspecified; Z17.1 Estrogen receptor negative status [ER-]; Z79.899 Other long term (current) drug therapy; Z90.13 Acquired absence of bilateral breasts and nipples; Z79.01 Long term (current) use of anticoagulants
CPT/HCPCS: 36591; 80053; 85025; J1642; Q0164

== ENCOUNTER 2024-02-17 12:24 | Outpatient (CLI) | payer BC, SELFPAY ==
[2024-02-17 12:28] VITALS: BMI 32.8
[2024-02-17 12:57] LABS: Chloride 105 mmol/L (98-107); Potassium 4.1 mmoL/L (3.5-5.1); Sodium 138 mmol/L (136-145)
[2024-02-17 13:00] LABS: Alanine Aminotransferase 18 U/L (12-78); Albumin Level 4.1 g/dl (3.5-5.0); Albumin/Globulin Ratio 1.3 (1.1-1.8); Alkaline Phosphatase 131 U/L (38-126); Anion Gap 8.1 mEq/L (5-15); Aspartate Amino Transferase 36 U/L (14-36); Bilirubin,Total 0.2 mg/dl (0.2-1.3); Blood Urea Nitrogen 12 mg/dl (7-17); Calcium 9.5 mg/dl (8.4-10.2); Carbon Dioxide 29 mmol/L (22.0-30.0); Creatinine Clearance Estimated 59 mL/min (50-200); Estimated Glomerular Filt Rate 35 ml/min (>60); GFR (African American) 42 ML/MIN (>60); Globulin 3.1 g/dL (1.3-3.2); Glucose 108 mg/dl (74-100); Total Protein,Serum 7.2 g/dl (6.3-8.2)
[2024-02-17 13:30] LABS: Basophils % 1.6 % (0.1-2.0); Eosinophils # 0.2 K/mm3 (0.0-0.4); Eosinophils % 7.1 % (0.1-12.0); Hemoglobin 9.9 g/dL (12.2-16.2); Lymphocytes # 0.5 K/mm3 (0.7-4.5); Lymphocytes % 17.8 % (10-50); Mean Corpuscular HGB Conc 32.1 g/dL (31.8-35.4); Mean Corpuscular Hemoglobin 28.7 pg (27.0-31.2); Mean Corpuscular Volume 89.5 fl (81-99); Mean Platelet Volume 7.2 fl (7.4-10.4); Monocytes # 0.6 K/mm3 (0.1-1.0); Monocytes % 20.1 % (1.7-9.3); Neutrophils # 1.5 K/mm3 (1.8-7.8); Neutrophils % 53.4 % (37.0-80.0); Platelet Count 337 K/mm3 (142-424); Red Blood Count 3.46 M/mm3 (4.20-5.40); White Blood Count 2.7 K/mm3 (4.8-10.8)
[2024-02-17 13:32] LABS: MANUAL DIFFERENTIAL MANUAL DIFFERENTIAL (MANUAL DIFF)
[2024-02-17] MEDS: PROCHLORPERAZINE 10MG TABLET 10 MG PO (13:34)
[2024-02-17] MEDS: SODIUM CHLORIDE 0.9% IV (14:06)
[2024-02-17] MEDS: VINORELBINE TARTRATE IV (14:06)
[2024-02-17] MEDS: SODIUM CHLORIDE 0.9% 50ML BAG 50 ML IV (14:06)
[2024-02-17 14:10] VITALS: BP 136/78; PULSE 75; RESP 18; TEMP 36.5; O2SAT 98
[2024-02-17 14:25] VITALS: BP 140/93; PULSE 68; RESP 17
[2024-02-17 14:30] LABS: Eosinophils % 5 % (0-3); Hypochromasia 1+; Lymphocytes % 26 % (10-50); Monocytes % 16 % (2-9); Neutrophils % 52 % (42-76); Platelet Estimate Normal; Total Cells Counted 100
== END 2024-02-17 14:35 | disposition home or self-care (01) ==
LOC: INF 12:25
PROVIDERS: PCP Physician Assistant; Visit Provider Internal Medicine Medical Oncology
DX: Z51.11 Encounter for antineoplastic chemotherapy (principal); C50.911 Malignant neoplasm of unspecified site of right female breast; C77.9 Secondary and unspecified malignant neoplasm of lymph node, unspecified; Z17.1 Estrogen receptor negative status [ER-]; Z79.899 Other long term (current) drug therapy; Z90.13 Acquired absence of bilateral breasts and nipples; Z79.01 Long term (current) use of anticoagulants
CPT/HCPCS: 80053; 85007; 85025; 85027; 96409; J1642; J9390; Q0164

== ENCOUNTER 2024-02-28 11:15 | Outpatient (CLI) | payer BC, SELFPAY ==
[2024-02-28 11:18] VITALS: BMI 32.8
[2024-02-28 11:37] LABS: Eosinophils # 0.1 K/mm3 (0.0-0.4); Eosinophils % 3.5 % (0.1-12.0); Hemoglobin 9.3 g/dL (12.2-16.2); Lymphocytes # 0.4 K/mm3 (0.7-4.5); Lymphocytes % 17.8 % (10-50); Mean Corpuscular HGB Conc 33.2 g/dL (31.8-35.4); Mean Corpuscular Hemoglobin 29.5 pg (27.0-31.2); Mean Platelet Volume 9.6 fl (7.4-10.4); Monocytes # 0.2 K/mm3 (0.1-1.0); Monocytes % 9.4 % (1.7-9.3); Neutrophils # 1.6 K/mm3 (1.8-7.8); Neutrophils % 68.2 % (37.0-80.0); Platelet Count 328 K/mm3 (142-424); Red Blood Count 3.14 M/mm3 (4.20-5.40); Red Cell Distribution Width 18.8 % (11.5-17.5); White Blood Count 2.4 K/mm3 (4.8-10.8)
[2024-02-28 11:41] LABS: Chloride 107 mmol/L (98-107); Potassium 4.3 mmoL/L (3.5-5.1); Sodium 139 mmol/L (136-145)
[2024-02-28 11:43] LABS: Alanine Aminotransferase 21 U/L (12-78); Alkaline Phosphatase 136 U/L (38-126); Aspartate Amino Transferase 39 U/L (14-36); Bilirubin,Total 0.3 mg/dl (0.2-1.3); Blood Urea Nitrogen 9 mg/dl (7-17); Creatinine Clearance Estimated 63 mL/min (50-200); Estimated Glomerular Filt Rate 38 ml/min (>60); GFR (African American) 46 ML/MIN (>60)
[2024-02-28 11:44] LABS: Albumin Level 3.9 g/dl (3.5-5.0); Albumin/Globulin Ratio 1.3 (1.1-1.8); Anion Gap 6.3 mEq/L (5-15); Calcium 9.5 mg/dl (8.4-10.2); Carbon Dioxide 30 mmol/L (22.0-30.0); Globulin 2.9 g/dL (1.3-3.2); Glucose 107 mg/dl (74-100); Total Protein,Serum 6.8 g/dl (6.3-8.2)
[2024-02-28] MEDS: PROCHLORPERAZINE 10MG TABLET 10 MG PO (12:35)
[2024-02-28] MEDS: VINORELBINE TARTRATE IV (13:02)
[2024-02-28] MEDS: SODIUM CHLORIDE 0.9% IV (13:02)
[2024-02-28 13:07] VITALS: BP 143/87; PULSE 84; RESP 18; TEMP 36.7; O2SAT 98
[2024-02-28 13:17] VITALS: BP 137/77; PULSE 88; O2SAT 98
[2024-02-28] MEDS: SODIUM CHLORIDE 0.9% 50ML BAG 50 ML IV (13:50)
[2024-02-28] MEDS: SODIUM CHLORIDE 0.9% 10ML FLUSH SYRINGE 10 ML IV (13:50)
== END 2024-02-28 13:51 | disposition home or self-care (01) ==
LOC: INF 11:15
PROVIDERS: PCP Physician Assistant; Visit Provider Internal Medicine Medical Oncology
DX: Z51.11 Encounter for antineoplastic chemotherapy (principal); C50.911 Malignant neoplasm of unspecified site of right female breast; C77.9 Secondary and unspecified malignant neoplasm of lymph node, unspecified; Z17.1 Estrogen receptor negative status [ER-]; Z79.01 Long term (current) use of anticoagulants; Z79.899 Other long term (current) drug therapy; Z90.13 Acquired absence of bilateral breasts and nipples
CPT/HCPCS: 80053; 85025; 96409; J1642; J9390; Q0164

== ENCOUNTER 2024-03-08 10:22 | Outpatient (CLI) | payer BC, SELFPAY ==
[2024-03-08 10:30] VITALS: BMI 32.8
[2024-03-08 10:46] LABS: Basophils % 1.8 % (0.1-2.0); Eosinophils # 0.1 K/mm3 (0.0-0.4); Eosinophils % 7.2 % (0.1-12.0); Hematocrit 25.4 % (37.0-47.0); Hemoglobin 8.4 g/dL (12.2-16.2); Lymphocytes # 0.4 K/mm3 (0.7-4.5); Lymphocytes % 38.9 % (10-50); Mean Corpuscular HGB Conc 33.1 g/dL (31.8-35.4); Mean Corpuscular Hemoglobin 29.3 pg (27.0-31.2); Mean Corpuscular Volume 88.8 fl (81-99); Mean Platelet Volume 10.4 fl (7.4-10.4); Monocytes # 0.1 K/mm3 (0.1-1.0); Monocytes % 12.4 % (1.7-9.3); Neutrophils # 0.4 K/mm3 (1.8-7.8); Neutrophils % 39.7 % (37.0-80.0); Platelet Count 305 K/mm3 (142-424); Red Blood Count 2.86 M/mm3 (4.20-5.40); Red Cell Distribution Width 18.6 % (11.5-17.5); White Blood Count 1.1 K/mm3 (4.8-10.8)
[2024-03-08 10:57] LABS: Chloride 104 mmol/L (98-107); Sodium 138 mmol/L (136-145)
[2024-03-08 10:59] LABS: Alanine Aminotransferase 20 U/L (12-78); Aspartate Amino Transferase 42 U/L (14-36); Blood Urea Nitrogen 8 mg/dl (7-17); Creatinine Clearance Estimated 59 mL/min (50-200); Estimated Glomerular Filt Rate 35 ml/min (>60); GFR (African American) 42 ML/MIN (>60)
[2024-03-08 11:00] LABS: Albumin Level 3.6 g/dl (3.5-5.0); Albumin/Globulin Ratio 1.3 (1.1-1.8); Alkaline Phosphatase 144 U/L (38-126); Bilirubin,Total 0.3 mg/dl (0.2-1.3); Calcium 9.1 mg/dl (8.4-10.2); Carbon Dioxide 31 mmol/L (22.0-30.0); Globulin 2.7 g/dL (1.3-3.2); Glucose 105 mg/dl (74-100); Total Protein,Serum 6.3 g/dl (6.3-8.2)
[2024-03-08] MEDS: SODIUM CHLORIDE 0.9% 10ML FLUSH SYRINGE 10 ML IV (11:30)
== END 2024-03-08 11:35 | disposition home or self-care (01) ==
LOC: INF 10:23
PROVIDERS: PCP Physician Assistant; Visit Provider Internal Medicine Medical Oncology
DX: C50.911 Malignant neoplasm of unspecified site of right female breast (principal); C77.9 Secondary and unspecified malignant neoplasm of lymph node, unspecified; Z17.1 Estrogen receptor negative status [ER-]; Z79.01 Long term (current) use of anticoagulants; Z90.13 Acquired absence of bilateral breasts and nipples
CPT/HCPCS: 36591; 80053; 85025; J1642

== ENCOUNTER 2024-03-14 15:22 | Outpatient (CLI) | payer BC, SELFPAY ==
[2024-03-14 15:32] VITALS: BMI 31.7
[2024-03-14] MEDS: SODIUM CHLORIDE 0.9% 10ML FLUSH SYRINGE 10 ML IV (15:55)
[2024-03-14 16:03] LABS: Basophils % 1.3 % (0.1-2.0); Eosinophils % 1.6 % (0.1-12.0); Hematocrit 30.1 % (37.0-47.0); Hemoglobin 9.3 g/dL (12.2-16.2); Lymphocytes # 0.5 K/mm3 (0.7-4.5); Lymphocytes % 21.2 % (10-50); Mean Corpuscular Hemoglobin 28.4 pg (27.0-31.2); Mean Corpuscular Volume 91.7 fl (81-99); Mean Platelet Volume 8.2 fl (7.4-10.4); Monocytes # 0.4 K/mm3 (0.1-1.0); Monocytes % 15.9 % (1.7-9.3); Neutrophils # 1.3 K/mm3 (1.8-7.8); Neutrophils % 59.8 % (37.0-80.0); Platelet Count 402 K/mm3 (142-424); Red Blood Count 3.28 M/mm3 (4.20-5.40); Red Cell Distribution Width 19.2 % (11.5-17.5); White Blood Count 2.2 K/mm3 (4.8-10.8)
[2024-03-14 16:06] LABS: Chloride 105 mmol/L (98-107); Potassium 4.3 mmoL/L (3.5-5.1); Sodium 138 mmol/L (136-145)
[2024-03-14 16:09] LABS: Alanine Aminotransferase 23 U/L (12-78); Albumin Level 3.7 g/dl (3.5-5.0); Albumin/Globulin Ratio 1.2 (1.1-1.8); Alkaline Phosphatase 153 U/L (38-126); Anion Gap 12.3 mEq/L (5-15); Aspartate Amino Transferase 48 U/L (14-36); Bilirubin,Total 0.3 mg/dl (0.2-1.3); Blood Urea Nitrogen 10 mg/dl (7-17); Carbon Dioxide 25 mmol/L (22.0-30.0); Creatinine Clearance Estimated 68 mL/min (50-200); Estimated Glomerular Filt Rate 41 ml/min (>60); GFR (African American) 49 ML/MIN (>60); Total Protein,Serum 6.7 g/dl (6.3-8.2)
[2024-03-14 16:10] LABS: Calcium 9.1 mg/dl (8.4-10.2); Glucose 113 mg/dl (74-100)
== END 2024-03-14 23:59 | disposition home or self-care (01) ==
LOC: INF 15:22
PROVIDERS: PCP Physician Assistant; Visit Provider Internal Medicine Medical Oncology
DX: C50.911 Malignant neoplasm of unspecified site of right female breast (principal); C77.9 Secondary and unspecified malignant neoplasm of lymph node, unspecified; Z17.1 Estrogen receptor negative status [ER-]; Z79.01 Long term (current) use of anticoagulants; Z90.13 Acquired absence of bilateral breasts and nipples
CPT/HCPCS: 36591; 80053; 85025; J1642

== ENCOUNTER 2024-03-15 11:47 | Outpatient (CLI) | payer BC, SELFPAY ==
[2024-03-15] MEDS: PROCHLORPERAZINE 10MG TABLET 10 MG PO (12:00)
[2024-03-15] MEDS: 0.9 % SODIUM CHLORIDE 50 ML 100 ML IV (12:00)
[2024-03-15] MEDS: SODIUM CHLORIDE 0.9% IV (12:36)
[2024-03-15] MEDS: VINORELBINE TARTRATE IV (12:36)
[2024-03-15 12:40] VITALS: BP 119/81; PULSE 78; RESP 18; TEMP 36.6; O2SAT 99
[2024-03-15] MEDS: SODIUM CHLORIDE 0.9% 10ML FLUSH SYRINGE 10 ML IV (13:00)
[2024-03-15 13:02] VITALS: BP 127/85; PULSE 69; RESP 18; O2SAT 99
== END 2024-03-15 13:02 | disposition home or self-care (01) ==
LOC: INF 11:47
PROVIDERS: PCP Physician Assistant; Visit Provider Internal Medicine Medical Oncology
DX: Z51.11 Encounter for antineoplastic chemotherapy (principal); C50.911 Malignant neoplasm of unspecified site of right female breast; C77.9 Secondary and unspecified malignant neoplasm of lymph node, unspecified; Z17.1 Estrogen receptor negative status [ER-]; Z79.01 Long term (current) use of anticoagulants; Z79.899 Other long term (current) drug therapy; Z90.13 Acquired absence of bilateral breasts and nipples
CPT/HCPCS: 96409; J1642; J9390; Q0164

== ENCOUNTER 2024-03-21 12:44 | Outpatient (CLI) | payer BC, SELFPAY ==
[2024-03-21 12:48] VITALS: BMI 31.7
[2024-03-21] MEDS: SODIUM CHLORIDE 0.9% 10ML FLUSH SYRINGE 10 ML IV (12:55)
[2024-03-21 13:08] LABS: Eosinophils % 1.8 % (0.1-12.0); Hematocrit 26.5 % (37.0-47.0); Hemoglobin 8.5 g/dL (12.2-16.2); Lymphocytes # 0.4 K/mm3 (0.7-4.5); Lymphocytes % 17.6 % (10-50); Mean Corpuscular HGB Conc 31.9 g/dL (31.8-35.4); Mean Corpuscular Hemoglobin 29.4 pg (27.0-31.2); Mean Corpuscular Volume 92.1 fl (81-99); Mean Platelet Volume 9.6 fl (7.4-10.4); Monocytes # 0.1 K/mm3 (0.1-1.0); Monocytes % 1.9 % (1.7-9.3); Neutrophils # 1.9 K/mm3 (1.8-7.8); Neutrophils % 77.6 % (37.0-80.0); Platelet Count 217 K/mm3 (142-424); Red Blood Count 2.88 M/mm3 (4.20-5.40); Red Cell Distribution Width 19.1 % (11.5-17.5); White Blood Count 2.4 K/mm3 (4.8-10.8)
[2024-03-21 13:30] LABS: Alanine Aminotransferase 26 U/L (12-78); Albumin Level 3.7 g/dl (3.5-5.0); Albumin/Globulin Ratio 1.2 (1.1-1.8); Alkaline Phosphatase 153 U/L (38-126); Anion Gap 10.2 mEq/L (5-15); Aspartate Amino Transferase 50 U/L (14-36); Bilirubin,Total 0.4 mg/dl (0.2-1.3); Blood Urea Nitrogen 11 mg/dl (7-17); Calcium 9.1 mg/dl (8.4-10.2); Carbon Dioxide 28 mmol/L (22.0-30.0); Chloride 105 mmol/L (98-107); Creatinine Clearance Estimated 63 mL/min (50-200); Estimated Glomerular Filt Rate 38 ml/min (>60); GFR (African American) 46 ML/MIN (>60); Glucose 106 mg/dl (74-100); Potassium 4.2 mmoL/L (3.5-5.1); Sodium 139 mmol/L (136-145); Total Protein,Serum 6.7 g/dl (6.3-8.2)
== END 2024-03-21 13:05 | disposition home or self-care (01) ==
LOC: INF 12:44
PROVIDERS: PCP Physician Assistant; Visit Provider Internal Medicine Medical Oncology
DX: C50.019 Malignant neoplasm of nipple and areola, unspecified female breast (principal)
CPT/HCPCS: 36591; 80053; 85025; J1642

== ENCOUNTER 2024-04-18 13:52 | Outpatient (CLI) | payer BC, SELFPAY ==
[2024-04-18] MEDS: SODIUM CHLORIDE 0.9% 10ML FLUSH SYRINGE 10 ML IV (14:10)
[2024-04-18 14:30] LABS: Basophils % 0.6 % (0.1-2.0); Eosinophils # 0.1 K/mm3 (0.0-0.4); Eosinophils % 1.9 % (0.1-12.0); Hematocrit 33.5 % (37.0-47.0); Lymphocytes # 0.6 K/mm3 (0.7-4.5); Lymphocytes % 8.8 % (10-50); Mean Corpuscular Hemoglobin 27.2 pg (27.0-31.2); Mean Corpuscular Volume 90.9 fl (81-99); Mean Platelet Volume 8.6 fl (7.4-10.4); Monocytes # 0.7 K/mm3 (0.1-1.0); Monocytes % 9.3 % (1.7-9.3); Neutrophils # 5.7 K/mm3 (1.8-7.8); Neutrophils % 79.4 % (37.0-80.0); Platelet Count 438 K/mm3 (142-424); Red Blood Count 3.68 M/mm3 (4.20-5.40); Red Cell Distribution Width 19.4 % (11.5-17.5); White Blood Count 7.1 K/mm3 (4.8-10.8)
[2024-04-18 14:37] LABS: Alanine Aminotransferase 53 U/L (12-78); Albumin Level 3.2 g/dl (3.5-5.0); Alkaline Phosphatase 265 U/L (38-126); Anion Gap 8.5 mEq/L (5-15); Aspartate Amino Transferase 124 U/L (14-36); Bilirubin,Total 0.5 mg/dl (0.2-1.3); Blood Urea Nitrogen 13 mg/dl (7-17); Carbon Dioxide 25 mmol/L (22.0-30.0); Chloride 105 mmol/L (98-107); Estimated Glomerular Filt Rate 49 ml/min (>60); GFR (African American) 59 ML/MIN (>60); Globulin 3.1 g/dL (1.3-3.2); Glucose 141 mg/dl (74-100); Magnesium 1.9 mg/dl (1.6-2.3); Potassium 4.5 mmoL/L (3.5-5.1); Sodium 134 mmol/L (136-145); Total Protein,Serum 6.3 g/dl (6.3-8.2)
[2024-04-18 15:28] LABS: Vitamin B12 > 1000 pg/mL (239-931)
== END 2024-04-18 14:20 | disposition home or self-care (01) ==
LOC: INF 13:53
PROVIDERS: PCP Physician Assistant; Visit Provider Internal Medicine Medical Oncology
DX: C50.919 Malignant neoplasm of unspecified site of unspecified female breast (principal)
CPT/HCPCS: 36591; 80053; 82607; 82746; 83735; 85025; J1642

== ENCOUNTER 2024-04-20 10:47 | Outpatient (CLI) | payer BC, SELFPAY ==
--- NOTE | 2024-04-20 10:52 | US_ITS ---
FINAL REPORT CLINICAL HISTORY: THERAPUTIC PARA -- ROBYN ARCE -- RT SIDE -- 4000 ML REMOVED FINDINGS: ULTRASOUND-GUIDED PARACENTESIS HISTORY: Ascites ATTENDING PHYSICIAN: Dr. Patterson PHYSICIAN ORTHODONTIST: Robyn Sarmiento PA-C FINDINGS: After informed consent was obtained and timeout procedure performed, fluid was localized in the right lower quadrant under ultrasound guidance and marked on the skin appropriately. The patient was then prepped and draped in the usual sterile fashion and the skin was anesthetized with 1% Lidocaine. An ultrasound guided paracentesis was then performed using a Turkel needle. Approximately 4 liters of clear yellow fluid was removed The patient tolerated the procedure well and there were no immediate complications. IMPRESSION: Ultrasound guided right lower quadrant paracentesis as discussed above. 4 liters of clear yellow fluid was removed. Films reviewed , interpreted and dictated by Dr. Patterson. Transcribed by Robyn Sarmiento PA-C. Reviewed, Interpreted and Dictated by Nixon Patterson MD Transcribed by CLAUDE Dupont Authenticated and [facility]
== END 2024-04-20 23:59 | disposition home or self-care (01) ==
LOC: RAD 10:48
PROVIDERS: PCP Physician Assistant; Visit Provider Internal Medicine Medical Oncology
DX: R18.8 Other ascites (principal)
CPT/HCPCS: 49083

== ENCOUNTER 2024-05-01 11:13 | Outpatient (CLI) | payer BC, SELFPAY ==
--- NOTE | 2024-05-01 11:18 | US_ITS ---
FINAL REPORT CLINICAL HISTORY: ASCITES -- PARACENTESIS -- ROBYN ARCE -- 5850 ML FINDINGS: ULTRASOUND-GUIDED PARACENTESIS HISTORY: Ascites ATTENDING PHYSICIAN: Dr. Duggan PHYSICIAN OYSTER PLANTER: Robyn Sarmiento PA-C FINDINGS: After informed consent was obtained and timeout procedure performed, fluid was localized in the left lower quadrant under ultrasound guidance and marked on the skin appropriately. The patient was then prepped and draped in the usual sterile fashion and the skin was anesthetized with 1% Lidocaine. An ultrasound guided paracentesis was then performed using a Turkel needle. Approximately 5.8 liters of clear yellow fluid was removed. No fluid was sent to lab. The patient tolerated the procedure well and there were no immediate complications. IMPRESSION: Ultrasound guided left lower quadrant paracentesis as discussed above. Films reviewed , interpreted and dictated by Dr. Duggan. Transcribed by Robyn Sarmiento PA-C. Reviewed, Interpreted and Dictated by Ulises Duggan III, MD Transcribed by CLAUDE Dupont Authenticated and [facility]
== END 2024-05-01 23:59 | disposition home or self-care (01) ==
LOC: RAD 11:13
PROVIDERS: PCP Physician Assistant; Visit Provider Internal Medicine Medical Oncology
DX: R18.8 Other ascites (principal)
CPT/HCPCS: 49083

== ENCOUNTER 2024-05-03 08:07 | Outpatient (CLI) | payer BC, SELFPAY ==
--- NOTE | 2024-05-03 | CA_ITS ---
FINAL REPORT CLINICAL HISTORY: bilateral calf pain with cramping and edema COMPARISON: None FINDINGS: Color Doppler, duplex Doppler and compression sonography of the bilateral lower extremities was performed. There is no evidence of deep venous thrombosis from the level of the groin to the calf. The deep veins are patent and compressible. IMPRESSION: No evidence of deep venous thrombosis bilateral lower extremities. Reviewed, Interpreted and Dictated by Ulises Duggan III, MD Transcribed by Annette Lockwood Authenticated and [facility]
== END 2024-05-03 23:59 | disposition home or self-care (01) ==
LOC: RT 08:08
PROVIDERS: PCP Physician Assistant; Visit Provider Internal Medicine Medical Oncology
DX: M79.662 Pain in left lower leg (principal); M79.661 Pain in right lower leg
CPT/HCPCS: 93970

== ENCOUNTER 2024-05-07 08:31 | Outpatient (CLI) | payer BC, SELFPAY ==
--- NOTE | 2024-05-07 08:39 | US_ITS ---
FINAL REPORT CLINICAL HISTORY: ASCITES-- TERRY ARCE--- 4850-- LLQ FINDINGS: ULTRASOUND-GUIDED PARACENTESIS HISTORY: Ascites ATTENDING PHYSICIAN: Dr. Noonan PHYSICIAN [place] HR DEVELOPER: Terry Perez PA-C FINDINGS: After informed consent was obtained and timeout procedure performed, fluid was localized in the left lower quadrant under ultrasound guidance and marked on the skin appropriately. The patient was then prepped and draped in the usual sterile fashion and the skin was anesthetized with 1% lidocaine. An ultrasound guided paracentesis was then performed using a Turkel needle. Approximately 4.9 liters of clear yellow fluid was removed. No fluid was sent to lab. The patient tolerated the procedure well and there were no immediate complications. IMPRESSION: Ultrasound guided left lower quadrant paracentesis as discussed above. Films reviewed , interpreted and dictated by Dr. Kathya Noonan. Transcribed by Terry Perez PA-C. Reviewed, Interpreted and Dictated by Kathya Noonan MD Transcribed by CLAUDE Juárez Authenticated and [facility]
== END 2024-05-07 23:59 | disposition home or self-care (01) ==
PROVIDERS: PCP Physician Assistant; Visit Provider Internal Medicine Medical Oncology
DX: R18.8 Other ascites (principal)
CPT/HCPCS: 49083

== ENCOUNTER 2024-05-11 10:47 | Outpatient (CLI) | payer BC, SELFPAY ==
--- NOTE | 2024-05-11 10:49 | US_ITS ---
FINAL REPORT CLINICAL HISTORY: ASCITES -- PARACENTESIS -- TERRY ARCE -- 2550ML FINDINGS: ULTRASOUND-GUIDED PARACENTESIS HISTORY: Ascites ATTENDING PHYSICIAN: Dr. Patterson PHYSICIAN LINE REPAIRER: Terry Perez PA-C FINDINGS: After informed consent was obtained and timeout procedure performed, fluid was localized in the right lower quadrant under ultrasound guidance and marked on the skin appropriately. The patient was then prepped and draped in the usual sterile fashion and the skin was anesthetized with 1% lidocaine. An ultrasound guided paracentesis was then performed using a Turkel needle. Approximately 2.5 liters of clear yellow fluid was removed. No fluid was sent to lab. The patient tolerated the procedure well and there were no immediate complications. IMPRESSION: Ultrasound guided right lower quadrant paracentesis as discussed above. Films reviewed, interpreted and dictated by Dr. Patterson. Transcribed by Terry Perez PA-C. Reviewed, Interpreted and Dictated by Nixon Patterson MD Transcribed by CLAUDE Juárez Authenticated and [facility]
== END 2024-05-11 23:59 | disposition home or self-care (01) ==
LOC: RAD 10:47
PROVIDERS: PCP Physician Assistant; Visit Provider Internal Medicine Medical Oncology
DX: R18.8 Other ascites (principal)
CPT/HCPCS: 49083

== ENCOUNTER 2024-05-16 11:43 | Outpatient (CLI) | payer BC, SELFPAY ==
[2024-05-16 11:47] VITALS: BMI 31.4
[2024-05-16] MEDS: SODIUM CHLORIDE 0.9% 10ML FLUSH SYRINGE 10 ML IV (12:15)
[2024-05-16] MEDS: CATHFLO 2MG VIAL 2 MG IV (12:25)
[2024-05-16 12:46] LABS: Basophils # 0.1 K/mm3 (0-0.2); Basophils % 0.5 % (0.1-2.0); Eosinophils # 0.1 K/mm3 (0.0-0.4); Eosinophils % 0.8 % (0.1-12.0); Hematocrit 42.5 % (37.0-47.0); Lymphocytes # 0.3 K/mm3 (0.7-4.5); Lymphocytes % 2.2 % (10-50); Mean Corpuscular HGB Conc 30.5 g/dL (31.8-35.4); Mean Corpuscular Hemoglobin 27.1 pg (27.0-31.2); Mean Corpuscular Volume 89.1 fl (81-99); Mean Platelet Volume 8.9 fl (7.4-10.4); Monocytes # 0.6 K/mm3 (0.1-1.0); Monocytes % 5.1 % (1.7-9.3); Neutrophils # 10.7 K/mm3 (1.8-7.8); Neutrophils % 91.5 % (37.0-80.0); Platelet Count 213 K/mm3 (142-424); Red Blood Count 4.77 M/mm3 (4.20-5.40); Red Cell Distribution Width 19.7 % (11.5-17.5); White Blood Count 11.7 K/mm3 (4.8-10.8)
[2024-05-16 12:51] LABS: Albumin Level 3.2 g/dl (3.5-5.0); Chloride 97 mmol/L (98-107)
[2024-05-16 12:52] LABS: MANUAL DIFFERENTIAL MANUAL DIFFERENTIAL (MANUAL DIFF); Potassium 5.5 mmoL/L (3.5-5.1); Sodium 120 mmol/L (136-145)
[2024-05-16 12:54] LABS: Blood Urea Nitrogen 30 mg/dl (7-17); Creatinine Clearance Estimated 72 mL/min (50-200); Estimated Glomerular Filt Rate 44 ml/min (>60); GFR (African American) 54 ML/MIN (>60)
[2024-05-16 12:55] LABS: Alanine Aminotransferase 191 U/L (12-78); Alkaline Phosphatase 905 U/L (38-126); Anion Gap 11.5 mEq/L (5-15); Aspartate Amino Transferase 405 U/L (14-36); Bilirubin,Total 1.1 mg/dl (0.2-1.3); Calcium 8.8 mg/dl (8.4-10.2); Carbon Dioxide 17 mmol/L (22.0-30.0); Globulin 3.3 g/dL (1.3-3.2); Glucose 97 mg/dl (74-100); Total Protein,Serum 6.5 g/dl (6.3-8.2)
[2024-05-16 13:53] LABS: Lymphocytes % 3 % (10-50); Monocytes % 7 % (2-9); Neutrophils % 90 % (42-76); Total Cells Counted 100
[2024-05-16 13:54] LABS: Hypochromasia 1+; Ovalocytes 1+; Platelet Estimate Normal; Poikilocytosis 1+
== END 2024-05-16 13:30 | disposition home or self-care (01) ==
LOC: INF 11:44
PROVIDERS: PCP Physician Assistant; Visit Provider Internal Medicine Medical Oncology
DX: C50.919 Malignant neoplasm of unspecified site of unspecified female breast (principal)
CPT/HCPCS: 36415; 36593; 80053; 85007; 85025; 85027; J1642; J2997

== ENCOUNTER 2024-05-18 09:07 | Outpatient (CLI) | payer BC, SELFPAY ==
--- NOTE | 2024-05-18 09:16 | US_ITS ---
FINAL REPORT CLINICAL HISTORY: ASCITES -- PARACENTESIS -- ROBYN ARCE -- 4750ML FINDINGS: ULTRASOUND-GUIDED PARACENTESIS HISTORY:Ascites ATTENDING PHYSICIAN: Dr. Ambrose PHYSICIAN PLUG GROWER: Robyn Sarmiento PA-C FINDINGS: After informed consent was obtained and timeout procedure performed, fluid was localized in the left lower quadrant under ultrasound guidance and marked on the skin appropriately. The patient was then prepped and draped in the usual sterile fashion and the skin was anesthetized with 1% lidocaine. An ultrasound guided paracentesis was then performed using a Turkel needle. Approximately 4.75 liters of fluid was removed. No fluid was sent to lab. The patient tolerated the procedure well and there were no immediate complications. IMPRESSION: Ultrasound guided left lower quadrant paracentesis as discussed above. Films reviewed , interpreted and dictated by Dr. Ambrose. Transcribed by Robyn Sarmiento PA-C. Reviewed, Interpreted and Dictated by Keri Ambrose MD Transcribed by CLAUDE Dupont Authenticated and [facility]
== END 2024-05-18 23:59 | disposition home or self-care (01) ==
LOC: RAD 09:08
PROVIDERS: PCP Physician Assistant; Visit Provider Internal Medicine Medical Oncology
DX: R18.8 Other ascites (principal)
CPT/HCPCS: 49083

== ENCOUNTER 2024-05-21 14:00 | Outpatient (RCR) | payer BC, SELFPAY | END 2024-05-21 23:59 | disposition home or self-care (01) | LOC: PT 14:00 | PROVIDERS: PCP Physician Assistant; Visit Provider Internal Medicine Hematology & Oncology | DX: I89.0 Lymphedema, not elsewhere classified (principal); C50.911 Malignant neoplasm of unspecified site of right female breast; Z17.1 Estrogen receptor negative status [ER-]; G89.3 Neoplasm related pain (acute) (chronic) | CPT/HCPCS: 97010; 97014; 97110; 97140; 97162; 97164; 97530; G0283 ==

== ENCOUNTER 2024-05-22 09:00 | Emergency (ER) | payer OTHER, SELFPAY ==
[2024-05-22 09:01] VITALS: BP 143/98; PULSE 98; RESP 16; TEMP 36.8; O2SAT 95; BMI 34.4
[2024-05-22 09:30] VITALS: BP 143/98; PULSE 97; RESP 16; O2SAT 95
[2024-05-22 10:00] VITALS: BP 140/95; PULSE 92; RESP 23; O2SAT 96
--- NOTE | 2024-05-22 10:02 | SW/DCPLANNER ---
I received a phone call from Valerie w/ Hospice stating this patient is currently established w/ their services. Per Valerie patient is scheduled to have a permanent drain placement w/ on Tuesday05/25/24. I have called and updated ED staff (November) regarding situation. I have also updated November of Valerie's contact information and asked that ED staff call her.
[2024-05-22] MEDS: HYDROMORPHONE 2MG/ML SYRINGE 1 MG IV ×2 (10:34→10:54)
--- NOTE | 2024-05-22 10:44 | HMH.EDGENADL ---
Discharge Plan Disposition Patient Disposition: Home, Self-Care Prescriptions Prescriptions: No Action ondansetron 8 mg tablet,disintegrating 8 mg PO DIRECTED PRN (Reason: Nausea) sennosides-docusate sodium [Stimulant Laxative Plus] 8.6-50 mg tablet 1 tab-cap PO BID PRN (Reason: Constipation) Qty: 60 2RF furosemide 20 mg tablet 20 mg PO DAILY pregabalin [Lyrica] 75 mg capsule 75 mg PO DAILY Qty: 30 1RF diphenhydramine HCl [Benadryl] 25 mg capsule 50 mg PO BIDP PRN (Reason: ALLERGIES) bupropion HCl 100 mg tablet sustained-release 12 hr 100 mg PO DAILY duloxetine 60 mg capsule,delayed release(DR/EC) 60 mg PO DAILY Patient Comments: TAKE 1 CAPSULE BY MOUTH ONCE DAILY (AFTER THE 30 MG IS GONE) lansoprazole 30 mg capsule,delayed release(DR/EC) 30 mg PO BID Qty: 60 5RF escitalopram oxalate 5 mg tablet 5 mg PO DAILY Qty: 30 5RF montelukast 10 mg tablet 10 mg PO HS Qty: 30 5RF potassium chloride 20 mEq tablet,ER particles/crystals 20 meq PO DAILY Qty: 30 5RF zolpidem 10 mg tablet 10 mg PO HS Qty: 30 4RF gabapentin 100 mg capsule 100 mg PO TID Qty: 90 2RF lidocaine-prilocaine 2.5-2.5 % cream 2.5 g topical ONCE PRN (Reason: anesthesia) Qty: 25 5RF methylphenidate HCl 5 mg tablet 10 mg PO DAILY Qty: 60 0RF alprazolam 0.5 mg tablet 0.5 mg PO BID PRN (Reason: anxiety) Qty: 60 1RF dexamethasone 4 mg tablet 4 mg PO BID Qty: 60 1RF Rx Instructions: TAKE ONE TABLET DAILY oxycodone 30 mg tablet 30 mg PO Q4H PRN (Reason: pain) Qty: 180 0RF oxycodone 20 mg tablet,oral only,ext.rel.12 hr See Rx Instructions PO BID Qty: 60 0RF Rx Instructions: 20 mg tablet along with 80 mg tablet for total of 100 mg orally twice a day; oxycodone 80 mg tablet,oral only,ext.rel.12 hr 80 mg PO BID Qty: 60 0RF atorvastatin 10 MG tablet 10 mg PO HS promethazine 12.5 MG tablet 12.5 mg PO Q4HP PRN (Reason: Nausea) prochlorperazine maleate 10 MG tablet 10 mg PO Q6HP PRN (Reason: Nausea) Fiber Therapy (m-cellulose) 500 mg Tablet 500 mg PO BID folic acid 1 mg Tablet 1 mg PO DAILY cholecalciferol (vitamin D3) [Vitamin D3] 125 mcg (5,000 unit) Tablet 125 mcg PO DAILY Linzess 145 mcg Capsule 145 mcg PO DAILY amlodipine 2.5 mg Tablet 2.5 mg PO DAILY Referrals Follow up/Referrals: Sugar Herring PA [Primary Care Provider] - See instructions Activity Restrictions/Add. Instructions Additional Instructions/Restrictions: Please continue to follow-up on an outpatient basis for your permanent ascites catheter placement as discussed. Clinical Impressions Clinical Impression: Ascites, malignant Instructions Patient Instructions: DI for Acute Abdominal Pain Print Language Print Language: Bahamian Discharge ED Provider: Britton Obrien General Adult HPI General Chief complaint: Abdominal Pain Stated complaint: drainage Time Seen by Provider: 05/22/24 09:02 Mode of Arrival: Wheelchair Source of Information: Patient and Relative Limitations: hospice Description of Symptoms (Recalled from ER Triage Doc. by RN): pt brought in due to increased abdominal swelling and pain. pt is currently under hospice care. History of Present Illness HPI narrative: Patient is a 44-year-old female with past medical history of breast cancer currently on hospice therapy with weekly paracentesis performed on Fridays who presents emergency department for increased abdominal swelling. She is not requesting a workup, rather she just wants a therapeutic paracentesis and has no other acute complaints at this time that she needs looked into. Hospice is currently in the process of adjusting her pain medications for breakthrough pain. Related Data Home Medications ?Medication ?Instructions ?Recorded ?Confirmed diphenhydramine HCl 25 mg capsule 50 mg PO BIDP PRN ALLERGIES 07/02/19 05/16/24 (Benadryl) prochlorperazine maleate 10 mg 10 mg PO Q6HP PRN Nausea 04/15/21 05/16/24 tablet promethazine 12.5 mg tablet 12.5 mg PO Q4HP PRN Nausea 04/15/21 05/16/24 atorvastatin 10 mg tablet 10 mg PO HS HYPERLIPIDEMIA 10/07/21 05/16/24 cholecalciferol (vitamin D3) 125 125 mcg PO DAILY 11/25/23 05/16/24 mcg (5,000 unit) tablet (Vitamin D3) folic acid 1 mg tablet 1 mg PO DAILY 11/25/23 05/16/24 linaclotide 145 mcg capsule 145 mcg PO DAILY 11/25/23 05/16/24 (Linzess) methylcellulose (laxative) 500 mg 500 mg PO BID 11/25/23 05/16/24 tablet (Fiber Therapy (methylcellulose)) ondansetron 8 mg disintegrating 8 mg PO DIRECTED PRN Nausea 12/15/23 05/16/24 tablet amlodipine 2.5 mg tablet 2.5 mg PO DAILY 12/16/23 05/16/24 bupropion HCl 100 mg tablet,12 hr 100 mg PO DAILY 01/25/24 05/16/24 sustained-release duloxetine 60 mg capsule,delayed 60 mg PO DAILY 03/27/24 05/16/24 release furosemide 20 mg tablet 20 mg PO DAILY 04/26/24 05/16/24 Previous Rx's ?Medication ?Instructions ?Recorded escitalopram oxalate 5 mg tablet 5 mg PO DAILY #30 tabs 01/24/24 lansoprazole 30 mg capsule,delayed 30 mg PO BID #60 caps 01/24/24 release montelukast 10 mg tablet 10 mg PO HS ALLERGIES #30 tabs 01/24/24 potassium chloride 20 mEq 20 meq PO DAILY #30 tabs 01/24/24 tablet,extended release(part/cryst) zolpidem 10 mg tablet 10 mg PO HS #30 tabs 01/25/24 gabapentin 100 mg capsule 100 mg PO TID #90 caps 03/05/24 sennosides 8.6 mg-docusate sodium 1 tab-cap PO BID PRN Constipation 03/05/24 50 mg tablet (Stimulant Laxative #60 tabs Plus) lidocaine-prilocaine 2.5 %-2.5 % 2.5 g topical ONCE PRN anesthesia 03/29/24 topical cream #25 grams alprazolam 0.5 mg tablet 0.5 mg PO BID PRN anxiety #60 tabs 05/08/24 methylphenidate HCl 5 mg tablet 10 mg (2 x 5 mg) PO DAILY BEHAVIOR 05/08/24 #60 tabs dexamethasone 4 mg tablet 4 mg PO BID #60 tabs 05/09/24 oxycodone 20 mg tablet,crush See Rx Instructions PO BID #60 tabs 05/16/24 resistant,extended release 12 hr oxycodone 30 mg tablet 30 mg PO Q4H PRN pain #180 tabs 05/16/24 oxycodone 80 mg tablet,crush 80 mg PO BID #60 tabs 05/16/24 resistant,extended release 12 hr pregabalin 75 mg capsule (Lyrica) 75 mg PO DAILY #30 caps 05/16/24 Allergies Allergy/AdvReac Type Severity Reaction Status Date / Time grape Allergy Mild UNKNOWN Verified 05/16/24 12:55 walnut Allergy Mild UNKNOWN Verified 05/16/24 12:55 roche Allergy Unknown Verified 05/16/24 12:55 methylprednisolone Allergy Unknown -- Verified 05/16/24 12:55 [METHYLPREDNISOLONE] honey AdvReac COLITIS Verified 05/16/24 12:[facility] Disclaimer: The information contained in this section may have been updated after the patient was seen, as this information can be updated by other users. Medical History Neuropathy GERD (gastroesophageal reflux disease) Hyperlipidemia Anxiety and depression Hypertension History of radiation therapy History of chemotherapy Breast cancer Surgical History S/P mastectomy, bilateral History of tonsillectomy and adenoidectomy Social History Smoking Status: Never smoker second hand exposure: No alcohol intake: never substance use type: denies use current occupational status: unemployed Travel in the last 8 weeks: None household members: spouse housing: house current occupational exposures/hazards: No caffeine: No ROS Obtained: Yes Systems reviewed as appropriate & no additional complaints except as documented Physical Exam General General appearance: alert and other (Ill-appearing) Head Head exam: atraumatic and normocephalic Eye Eye exam: Present PERRL ENT ENT exam: Present mucous membranes moist Neck Neck exam: Present normal inspection Chest Chest inspection: Present normal inspection and symmetric chest wall rise Respiratory Respiratory exam: Absent respiratory distress Cardiovascular Cardiovascular exam: Present regular rate and normal rhythm Abdominal Exam Abdominal exam: Present soft and distention; Absent tenderness Extremities Exam Extremities exam: Present normal inspection Neurological Exam Neurological exam: Present alert Psychiatric Psychiatric exam: Present normal affect Skin Skin exam: Present warm and dry Medical Decision Making Medical Records Screening: Per USPSTF and CDC recommendations, given the prevalence of disease in our region, it is our hospital?s policy to screen for HIV and viral Hepatitis for all patients aged 18 and over and those with ongoing risk factors. Donald Inquiry Pt receiving controlled substance: No Vital Signs: 05/22/24 09:01 05/22/24 09:30 05/22/24 10:00 Temperature 98.2 F Temperature Source Oral Pulse Rate 97 H 92 H Pulse Rate [Right] 98 H Respiratory Rate 16 16 23 Blood Pressure 143/98 H 140/95 H Blood Pressure [Right Arm] 143/98 H Blood Pressure Mean 113 Blood Pressure Mean [Right Arm] 113 02 Sat by Pulse Oximetry 95 95 96 Oxygen Delivery Method Room Air Orders (Tests/Meds): ED MEDICATIONS Discontinued Medications Generic Name Dose Route Start Last Admin Trade Name Freq PRN Reason Stop Dose Admin Hydromorphone HCl 1 mg 05/22/24 10:30 05/22/24 10:34 Hydromorphone 2mg/Ml Syringe IV 05/22/24 10:31 1 mg ONCE ONE Administration Hydromorphone HCl 1 mg 05/22/24 10:53 05/22/24 10:54 Hydromorphone 2mg/Ml Syringe IV 05/22/24 10:54 1 mg ONCE ONE Administration ORDERS Category Date Time Status HIV (1&2) Antibody Rapid Stat Lab 05/22/24 10:04 Ordered Hep C Ab with Reflex to RNA Stat Lab 05/22/24 10:04 Ordered Medical Decision Narrative: In summary patient is a 44-year-old female past medical history described above presents emergency department for evaluation of ascites in the setting of metastatic breast cancer on hospice. Patient is hemodynamically stable upon arrival, ill-appearing. Shared decision-making discussion was had and patient does not want a workup of any kind rather she just wants relief from her tense ascites. This is reasonable given the above. Port was accessed for breakthrough pain and patient was given Dilaudid. Patient underwent therapeutic paracentesis without complication and is appropriate for outpatient management at this time. Procedure: Procedure performed was a therapeutic paracentesis. Procedure performed by Britton Obrien. Pocket of fluid identified in the left lower quadrant greater than 8 cm deep, numbing with lidocaine without epinephrine 9 cc instilled, anesthesia achieved. Paracentesis safety centesis catheter was advanced through the abdominal wall until straw-colored fluid was returned and the catheter was advanced into the abdomen while holding the obturator in a fixed position. 5 L of straw-colored fluid were drained by Vacutainer's. Patient tolerated the procedure well. There were no immediate complications. Critical Care Critical Care Time Critical Care Time: No
--- NOTE | 2024-05-22 11:12 | PC.NURSE ---
pt had 5 liters drawn from abdomen. She reports feeling much improved and requested a lunch tray. dietary notified
[2024-05-22 11:37] VITALS: BP 149/97; PULSE 82; RESP 19; O2SAT 96
[2024-05-22 11:43] VITALS: BP 149/97; PULSE 77; RESP 18; TEMP 36.7; O2SAT 98
== END 2024-05-22 12:00 | disposition home or self-care (01) ==
PROVIDERS: Emergency Provider Emergency Medicine; PCP Physician Assistant
DX: R10.9 Unspecified abdominal pain (principal)
CPT/HCPCS: 96374; 99284; J1170; J1642

== ENCOUNTER 2024-05-23 04:53 | Emergency (ER) | payer OTHER, SELFPAY ==
[2024-05-23 04:54] VITALS: BP 136/100; PULSE 101; RESP 18; TEMP 36.6; O2SAT 97; BMI 31.8
[2024-05-23 05:00] VITALS: BP 144/104; PULSE 96; O2SAT 98
--- NOTE | 2024-05-23 05:03 | ED_ITS ---
Discharge Plan Disposition Patient Disposition: Home, Self-Care Prescriptions Prescriptions: No Action ondansetron 8 mg tablet,disintegrating 8 mg PO DIRECTED PRN (Reason: Nausea) sennosides-docusate sodium [Stimulant Laxative Plus] 8.6-50 mg tablet 1 tab-cap PO BID PRN (Reason: Constipation) Qty: 60 2RF furosemide 20 mg tablet 20 mg PO DAILY pregabalin [Lyrica] 75 mg capsule 75 mg PO DAILY Qty: 30 1RF diphenhydramine HCl [Benadryl] 25 mg capsule 50 mg PO BIDP PRN (Reason: ALLERGIES) bupropion HCl 100 mg tablet sustained-release 12 hr 100 mg PO DAILY duloxetine 60 mg capsule,delayed release(DR/EC) 60 mg PO DAILY Patient Comments: TAKE 1 CAPSULE BY MOUTH ONCE DAILY (AFTER THE 30 MG IS GONE) lansoprazole 30 mg capsule,delayed release(DR/EC) 30 mg PO BID Qty: 60 5RF escitalopram oxalate 5 mg tablet 5 mg PO DAILY Qty: 30 5RF montelukast 10 mg tablet 10 mg PO HS Qty: 30 5RF potassium chloride 20 mEq tablet,ER particles/crystals 20 meq PO DAILY Qty: 30 5RF zolpidem 10 mg tablet 10 mg PO HS Qty: 30 4RF gabapentin 100 mg capsule 100 mg PO TID Qty: 90 2RF lidocaine-prilocaine 2.5-2.5 % cream 2.5 g topical ONCE PRN (Reason: anesthesia) Qty: 25 5RF methylphenidate HCl 5 mg tablet 10 mg PO DAILY Qty: 60 0RF alprazolam 0.5 mg tablet 0.5 mg PO BID PRN (Reason: anxiety) Qty: 60 1RF dexamethasone 4 mg tablet 4 mg PO BID Qty: 60 1RF Rx Instructions: TAKE ONE TABLET DAILY oxycodone 30 mg tablet 30 mg PO Q4H PRN (Reason: pain) Qty: 180 0RF oxycodone 20 mg tablet,oral only,ext.rel.12 hr See Rx Instructions PO BID Qty: 60 0RF Rx Instructions: 20 mg tablet along with 80 mg tablet for total of 100 mg orally twice a day; oxycodone 80 mg tablet,oral only,ext.rel.12 hr 80 mg PO BID Qty: 60 0RF atorvastatin 10 MG tablet 10 mg PO HS promethazine 12.5 MG tablet 12.5 mg PO Q4HP PRN (Reason: Nausea) prochlorperazine maleate 10 MG tablet 10 mg PO Q6HP PRN (Reason: Nausea) Fiber Therapy (m-cellulose) 500 mg Tablet 500 mg PO BID folic acid 1 mg Tablet 1 mg PO DAILY cholecalciferol (vitamin D3) [Vitamin D3] 125 mcg (5,000 unit) Tablet 125 mcg PO DAILY Linzess 145 mcg Capsule 145 mcg PO DAILY amlodipine 2.5 mg Tablet 2.5 mg PO DAILY Referrals Follow up/Referrals: Keri Parish MD [Primary Care Provider] - See instructions Clinical Impressions Clinical Impression: Renal failure, Typhlitis, Hyponatremia, Acute hyperkalemia, Bowel obstruction Instructions Patient Instructions: DI for Acute Abdominal Pain Print Language Print Language: Malay Discharge ED Provider: Denis Clark General Adult HPI <Denis Clark MD - Last Filed: 05/23/24 07:40> General Chief complaint: Abdominal Pain Stated complaint: nausea Time Seen by Provider: 05/23/24 04:55 History of Present Illness HPI narrative: 44-year-old female with history of extensively metastatic breast cancer, recently placed on hospice presents for worsening abdominal pain nausea and vomiting. She reports she has not had a bowel movement several days any when she does she does not get anything out. She reports that her pain is worse despite changing her pain medications at home. Related Data Home Medications ?Medication ?Instructions ?Recorded ?Confirmed diphenhydramine HCl 25 mg capsule 50 mg PO BIDP PRN ALLERGIES 07/02/19 05/16/24 (Benadryl) prochlorperazine maleate 10 mg 10 mg PO Q6HP PRN Nausea 04/15/21 05/16/24 tablet promethazine 12.5 mg tablet 12.5 mg PO Q4HP PRN Nausea 04/15/21 05/16/24 atorvastatin 10 mg tablet 10 mg PO HS HYPERLIPIDEMIA 10/07/21 05/16/24 cholecalciferol (vitamin D3) 125 125 mcg PO DAILY 11/25/23 05/16/24 mcg (5,000 unit) tablet (Vitamin D3) folic acid 1 mg tablet 1 mg PO DAILY 11/25/23 05/16/24 linaclotide 145 mcg capsule 145 mcg PO DAILY 11/25/23 05/16/24 (Linzess) methylcellulose (laxative) 500 mg 500 mg PO BID 11/25/23 05/16/24 tablet (Fiber Therapy (methylcellulose)) ondansetron 8 mg disintegrating 8 mg PO DIRECTED PRN Nausea 12/15/23 05/16/24 tablet amlodipine 2.5 mg tablet 2.5 mg PO DAILY 12/16/23 05/16/24 bupropion HCl 100 mg tablet,12 hr 100 mg PO DAILY 01/25/24 05/16/24 sustained-release duloxetine 60 mg capsule,delayed 60 mg PO DAILY 03/27/24 05/16/24 release furosemide 20 mg tablet 20 mg PO DAILY 04/26/24 05/16/24 Previous Rx's ?Medication ?Instructions ?Recorded escitalopram oxalate 5 mg tablet 5 mg PO DAILY #30 tabs 01/24/24 lansoprazole 30 mg capsule,delayed 30 mg PO BID #60 caps 01/24/24 release montelukast 10 mg tablet 10 mg PO HS ALLERGIES #30 tabs 01/24/24 potassium chloride 20 mEq 20 meq PO DAILY #30 tabs 01/24/24 tablet,extended release(part/cryst) zolpidem 10 mg tablet 10 mg PO HS #30 tabs 01/25/24 gabapentin 100 mg capsule 100 mg PO TID #90 caps 03/05/24 sennosides 8.6 mg-docusate sodium 1 tab-cap PO BID PRN Constipation 03/05/24 50 mg tablet (Stimulant Laxative #60 tabs Plus) lidocaine-prilocaine 2.5 %-2.5 % 2.5 g topical ONCE PRN anesthesia 03/29/24 topical cream #25 grams alprazolam 0.5 mg tablet 0.5 mg PO BID PRN anxiety #60 tabs 05/08/24 methylphenidate HCl 5 mg tablet 10 mg (2 x 5 mg) PO DAILY BEHAVIOR 05/08/24 #60 tabs dexamethasone 4 mg tablet 4 mg PO BID #60 tabs 05/09/24 oxycodone 20 mg tablet,crush See Rx Instructions PO BID #60 tabs 05/16/24 resistant,extended release 12 hr oxycodone 30 mg tablet 30 mg PO Q4H PRN pain #180 tabs 05/16/24 oxycodone 80 mg tablet,crush 80 mg PO BID #60 tabs 05/16/24 resistant,extended release 12 hr pregabalin 75 mg capsule (Lyrica) 75 mg PO DAILY #30 caps 05/16/24 Allergies Allergy/AdvReac Type Severity Reaction Status Date / Time grape Allergy Mild UNKNOWN Verified 05/16/24 12:55 walnut Allergy Mild UNKNOWN Verified 05/16/24 12:55 roche Allergy Unknown Verified 05/16/24 12:55 methylprednisolone Allergy Unknown -- Verified 05/16/24 12:55 [METHYLPREDNISOLONE] honey AdvReac COLITIS Verified 05/16/24 12:55 PFSH <Denis Clark MD - Last Filed: 05/23/24 07:40> [facility] Disclaimer: The information contained in this section may have been updated after the patient was seen, as this information can be updated by other users. Medical History Neuropathy GERD (gastroesophageal reflux disease) Hyperlipidemia Anxiety and depression Hypertension History of radiation therapy History of chemotherapy Breast cancer Surgical History S/P mastectomy, bilateral History of tonsillectomy and adenoidectomy Social History Smoking Status: Never smoker second hand exposure: No alcohol intake: never substance use type: denies use current occupational status: unemployed Travel in the last 8 weeks: None household members: spouse housing: house current occupational exposures/hazards: No caffeine: No Other Medical History Have you received the Flu Vaccine for this season: No Have you received the Pneumonia Vaccine: No <Denis Clark MD - Last Filed: 05/23/24 07:40> ROS Obtained: Yes All systems reviewed & no additional complaints except as documented Physical Exam <Denis Clark MD - Last Filed: 05/23/24 07:40> General General appearance: alert Comment: Pale, uncomfortable appearing secondary to pain, Head Head exam: atraumatic and normocephalic Eye Eye exam: Present normal appearance, PERRL and EOMI ENT ENT exam: Present normal oropharynx and normal external ear exam Neck Neck exam: Present normal inspection and full ROM Chest Chest inspection: Present normal inspection and symmetric chest wall rise; Absent tenderness Respiratory Respiratory exam: Present normal lung sounds bilaterally; Absent respiratory distress Cardiovascular Cardiovascular exam: Present normal rhythm and tachycardia Abdominal Exam Abdominal exam: Present soft, distention and tenderness; Absent guarding Extremities Exam Extremities exam: Present normal inspection; Absent edema or joint swelling Back Exam Back exam: Present normal inspection; Absent tenderness Neurological Exam Neurological exam: Present alert and oriented X3; Absent motor sensory deficit Psychiatric Psychiatric exam: Present anxious Skin Skin exam: Present warm, dry and normal color Lymphatic Lymphatic Findings: no adenopathy Medical Decision Making <Denis Clark MD - Last Filed: 05/23/24 07:40> Medical Records Medical records reviewed: Yes I reviewed the patient's medical records. Screening: Per USPSTF and CDC recommendations, given the prevalence of disease in our region, it is our hospital?s policy to screen for HIV and viral Hepatitis for all patients aged 18 and over and those with ongoing risk factors. Donald Inquiry Pt receiving controlled substance: No Donald was queried for this patient: No Vital Signs: 05/23/24 04:54 05/23/24 05:00 05/23/24 07:43 Temperature 97.9 F Temperature Source Oral Pulse Rate 96 H 108 H Pulse Rate [Right Radial] 101 H Respiratory Rate 18 16 Blood Pressure 144/104 H 139/93 H Blood Pressure [Right Arm] 136/100 H Blood Pressure Mean 102 Blood Pressure Mean [Right Arm] 112 Blood Pressure Source Blood Pressure Source [Right Arm] Automatic Cuff Blood Pressure Position Blood Pressure Position [Right Arm] Supine 02 Sat by Pulse Oximetry 97 98 96 Oxygen Delivery Method Room Air 05/23/24 09:32 Temperature Temperature Source Pulse Rate 112 H Pulse Rate [Right Radial] Respiratory Rate 20 Blood Pressure 122/82 Blood Pressure [Right Arm] Blood Pressure Mean Blood Pressure Mean [Right Arm] Blood Pressure Source Automatic Cuff Blood Pressure Source [Right Arm] Blood Pressure Position Sitting Blood Pressure Position [Right Arm] 02 Sat by Pulse Oximetry 99 Oxygen Delivery Method Lab Data Lab results reviewed: Yes I reviewed the patient's lab results. Lab Results 05/23/24 05:17: WBC 15.2 H, RBC 4.94, Hgb 13.3, Hct 42.8, MCV 86.6, MCH 26.8 L, MCHC 31.0 L, RDW 19.9 H, Plt Count 214, MPV 8.6, Neut % (Auto) 92.5 H, Lymph % (Auto) 2.3 L, [place] % (Auto) 4.3, Eos % (Auto) 0.5, Baso % (Auto) 0.4, Neut # (Auto) 14.1 H, Lymph # (Auto) 0.4 L, [place] # (Auto) 0.7, Eos # (Auto) 0.1, Baso # (Auto) 0.1, Total Counted 100, Neutrophils % (Manual) 93 H, Lymphocytes % (Manual) 4 L, Monocytes % (Manual) 3, Platelet Estimate Normal, RBC Morphology Normal 05/23/24 06:03: Sodium 110 L*, Potassium 5.8 H, Chloride 86 L, Carbon Dioxide 19 L, Anion Gap 10.8, BUN 61 H, Creatinine 2.20 H, Estimated Creat Clear 42, E stimated GFR 24 L, Est GFR ( Amer) 29 L, Glucose 88, Calcium 8.7, Magnesium 2.3, Total Bilirubin 1.4 H, AST 310 H*, ALT 205 H, Alkaline Phosphatase 1008 H, Total Protein 5.4 L, Albumin 2.6 L, Globulin 2.8, A lbumin/Globulin Ratio 0.9 L, Lipase 177 05/23/24 05:17 05/23/24 06:03 Orders (Tests/Meds): ED MEDICATIONS Generic Name Dose Route Start Last Admin Trade Name Freq PRN Reason Stop Dose Admin Sodium Chloride 10 ml 05/23/24 05:42 05/23/24 05:43 Sodium Chloride 0.9% 10ml Syr (Rad Only) IV 06/22/24 05:41 10 ml NEEDED PRN Administration Maintain IV Site Discontinued Medications Generic Name Dose Route Start Last Admin Trade Name Freq PRN Reason Stop Dose Admin Acetaminophen 1,000 mg 05/23/24 05:04 05/23/24 05:16 Acetaminophen 1,000mg/100ml Vial IV 05/23/24 05:05 1,000 mg ONCE ONE Administration Hydromorphone HCl 1 mg 05/23/24 05:04 05/23/24 05:17 Hydromorphone 2mg/Ml Syringe IV 05/23/24 05:05 1 mg ONCE ONE Administration Hydromorphone HCl 2 mg 05/23/24 05:47 05/23/24 05:51 Hydromorphone 2mg/Ml Syringe IV 05/23/24 05:48 2 mg ONCE ONE Administration Hydromorphone HCl 2 mg 05/23/24 10:10 05/23/24 10:19 Hydromorphone 2mg/Ml Syringe IV 05/23/24 10:11 2 mg ONCE ONE Administration Hydromorphone HCl 1 mg 05/23/24 11:29 05/23/24 11:38 Hydromorphone 2mg/Ml Syringe IV 05/23/24 11:30 1 mg ONCE ONE Administration Lactated Ringer's 1,000 mls @ 999 mls/hr 05/23/24 05:15 05/23/24 05:16 Lactated Ringer's 1000 Ml Bag IV 05/23/24 06:15 999 mls/hr .Q1H1M JOSY Administration Iopamidol 75 ml 05/23/24 05:42 05/23/24 05:43 Iopamidol-370 (76%);100ml Bottle IV 05/23/24 05:43 75 ml ONCE ONE Administration Ondansetron HCl 4 mg 05/23/24 10:10 05/23/24 10:19 Ondansetron 4mg/2ml Vial IV 05/23/24 10:11 4 mg ONCE ONE Administration Promethazine HCl 25 mg 05/23/24 05:54 05/23/24 06:00 Promethazine Hcl 25mg/Ml 1ml Vial IV 05/23/24 05:55 25 mg ONCE ONE Administration Sodium Chloride 25 ml 05/23/24 05:54 05/23/24 06:00 Sodium Chloride 0.9% 25ml Bag IV 05/23/24 05:55 25 ml ONCE ONE Administration ORDERS Category Date Time Status CT abdomen pelvis w con Stat Cat Scan 05/23/24 05:04 Completed CBC w/Auto Diff [Complete Blood Count Auto Diff] Stat Lab 05/23/24 05:17 Completed CMP [Comprehensive Metabolic Panel] Stat Lab 05/23/24 06:03 Completed Lipase Stat Lab 05/23/24 06:03 Completed Magnesium Stat Lab 05/23/24 06:03 Completed Medical Decision Narrative: 44-year-old female with history of extensively metastatic breast cancer, previously on therapy, recently placed on hospice presents with worsening abdominal pain, nausea vomiting. History was obtained via interactive discussion with patient, family, chart review. On arrival, patient is afebrile, uncomfortable appearing secondary to pain, abdomen distended and tender Differential includes but is not limited to worsening metastatic disease, bowel obstruction, organ failure. Patient was given total, 1 L IV fluid 3 mg of Dilaudid, 25 mg of Phenergan for symptomatic management and correction of underlying abnormalities. Workup initiated including CBC CMP mag lipase CT abdomen and pelvis with IV contrast. On re-evaluation, patient is resting more comfortably. Laboratory workup independently interpreted by me and significant for evidence of multiorgan failure, creatinine 2.2, up from baseline, BUN 61. Sodium 110, slowly downtrending. Potassium 5.8. No hyperkalemic changes on EKG yet. AST and ALT both elevated, alk phos 1000. Imaging independently interpreted by me and significant for findings consistent with large bowel obstruction and concern for typhlitis. Also shows extensive metastatic disease, cirrhotic changes and gastritis. See radiology read for full review of final results. EKG independently interpreted by me and significant for sinus rhythm, rate of 102, no significant ST or T wave changes.. Given patient history, exam and workup, patient's presentation most likely represents multiorgan failure in the setting of end-stage breast cancer. I had a interactive discussion with patient and family regarding next steps. We will plan for patient to return home with hospice with appropriate pain and nausea control. Patient care on and off to oncoming physician pending hospice discussion. <Britton Obrien MD - Last Filed: 05/23/24 12:07> Vital Signs: 05/23/24 04:54 05/23/24 05:00 05/23/24 07:43 Temperature 97.9 F Temperature Source Oral Pulse Rate 96 H 108 H Pulse Rate [Right Radial] 101 H Respiratory Rate 18 16 Blood Pressure 144/104 H 139/93 H Blood Pressure [Right Arm] 136/100 H Blood Pressure Mean 102 Blood Pressure Mean [Right Arm] 112 Blood Pressure Source Blood Pressure Source [Right Arm] Automatic Cuff Blood Pressure Position Blood Pressure Position [Right Arm] Supine 02 Sat by Pulse Oximetry 97 98 96 Oxygen Delivery Method Room Air 05/23/24 09:32 Temperature Temperature Source Pulse Rate 112 H Pulse Rate [Right Radial] Respiratory Rate 20 Blood Pressure 122/82 Blood Pressure [Right Arm] Blood Pressure Mean Blood Pressure Mean [Right Arm] Blood Pressure Source Automatic Cuff Blood Pressure Source [Right Arm] Blood Pressure Position Sitting Blood Pressure Position [Right Arm] 02 Sat by Pulse Oximetry 99 Oxygen Delivery Method Lab Data Lab Results 05/23/24 05:17: WBC 15.2 H, RBC 4.94, Hgb 13.3, Hct 42.8, MCV 86.6, MCH 26.8 L, MCHC 31.0 L, RDW 19.9 H, Plt Count 214, MPV 8.6, Neut % (Auto) 92.5 H, Lymph % (Auto) 2.3 L, [place] % (Auto) 4.3, Eos % (Auto) 0.5, Baso % (Auto) 0.4, Neut # (Auto) 14.1 H, Lymph # (Auto) 0.4 L, [place] # (Auto) 0.7, Eos # (Auto) 0.1, Baso # (Auto) 0.1, Total Counted 100, Neutrophils % (Manual) 93 H, Lymphocytes % (Manual) 4 L, Monocytes % (Manual) 3, Platelet Estimate Normal, RBC Morphology Normal 05/23/24 06:03: Sodium 110 L*, Potassium 5.8 H, Chloride 86 L, Carbon Dioxide 19 L, Anion Gap 10.8, BUN 61 H, Creatinine 2.20 H, Estimated Creat Clear 42, E stimated GFR 24 L, Est GFR ( Amer) 29 L, Glucose 88, Calcium 8.7, Magnesium 2.3, Total Bilirubin 1.4 H, AST 310 H*, ALT 205 H, Alkaline Phosphatase 1008 H, Total Protein 5.4 L, Albumin 2.6 L, Globulin 2.8, A lbumin/Globulin Ratio 0.9 L, Lipase 177 Orders (Tests/Meds): ED MEDICATIONS Generic Name Dose Route Start Last Admin Trade Name Freq PRN Reason Stop Dose Admin Sodium Chloride 10 ml 05/23/24 05:42 05/23/24 05:43 Sodium Chloride 0.9% 10ml Syr (Rad Only) IV 06/22/24 05:41 10 ml NEEDED PRN Administration Maintain IV Site Discontinued Medications Generic Name Dose Route Start Last Admin Trade Name Freq PRN Reason Stop Dose Admin Acetaminophen 1,000 mg 05/23/24 05:04 05/23/24 05:16 Acetaminophen 1,000mg/100ml Vial IV 05/23/24 05:05 1,000 mg ONCE ONE Administration Hydromorphone HCl 1 mg 05/23/24 05:04 05/23/24 05:17 Hydromorphone 2mg/Ml Syringe IV 05/23/24 05:05 1 mg ONCE ONE Administration Hydromorphone HCl 2 mg 05/23/24 05:47 05/23/24 05:51 Hydromorphone 2mg/Ml Syringe IV 05/23/24 05:48 2 mg ONCE ONE Administration Hydromorphone HCl 2 mg 05/23/24 10:10 05/23/24 10:19 Hydromorphone 2mg/Ml Syringe IV 05/23/24 10:11 2 mg ONCE ONE Administration Hydromorphone HCl 1 mg 05/23/24 11:29 05/23/24 11:38 Hydromorphone 2mg/Ml Syringe IV 05/23/24 11:30 1 mg ONCE ONE Administration Lactated Ringer's 1,000 mls @ 999 mls/hr 05/23/24 05:15 05/23/24 05:16 Lactated Ringer's 1000 Ml Bag IV 05/23/24 06:15 999 mls/hr .Q1H1M JOSY Administration Iopamidol 75 ml 05/23/24 05:42 05/23/24 05:43 Iopamidol-370 (76%);100ml Bottle IV 05/23/24 05:43 75 ml ONCE ONE Administration Ondansetron HCl 4 mg 05/23/24 10:10 05/23/24 10:19 Ondansetron 4mg/2ml Vial IV 05/23/24 10:11 4 mg ONCE ONE Administration Promethazine HCl 25 mg 05/23/24 05:54 05/23/24 06:00 Promethazine Hcl 25mg/Ml 1ml Vial IV 05/23/24 05:55 25 mg ONCE ONE Administration Sodium Chloride 25 ml 05/23/24 05:54 05/23/24 06:00 Sodium Chloride 0.9% 25ml Bag IV 05/23/24 05:55 25 ml ONCE ONE Administration ORDERS Category Date Time Status CT abdomen pelvis w con Stat Cat Scan 05/23/24 05:04 Completed CBC w/Auto Diff [Complete Blood Count Auto Diff] Stat Lab 05/23/24 05:17 Completed CMP [Comprehensive Metabolic Panel] Stat Lab 05/23/24 06:03 Completed Lipase Stat Lab 05/23/24 06:03 Completed Magnesium Stat Lab 05/23/24 06:03 Completed Medical Decision Narrative: 44-year-old female with history of extensively metastatic breast cancer, previously on therapy, recently placed on hospice presents with worsening abdominal pain, nausea vomiting. History was obtained via interactive discussion with patient, family, chart review. On arrival, patient is afebrile, uncomfortable appearing secondary to pain, abdomen distended and tender Differential includes but is not limited to worsening metastatic disease, bowel obstruction, organ failure. Patient was given total, 1 L IV fluid 3 mg of Dilaudid, 25 mg of Phenergan for symptomatic management and correction of underlying abnormalities. Workup initiated including CBC CMP mag lipase CT abdomen and pelvis with IV contrast. On re-evaluation, patient is resting more comfortably. Laboratory workup independently interpreted by me and significant for evidence of multiorgan failure, creatinine 2.2, up from baseline, BUN 61. Sodium 110, slowly downtrending. Potassium 5.8. No hyperkalemic changes on EKG yet. AST and ALT both elevated, alk phos 1000. Imaging independently interpreted by me and significant for findings consistent with large bowel obstruction and concern for typhlitis. Also shows extensive metastatic disease, cirrhotic changes and gastritis. See radiology read for full review of final results. EKG independently interpreted by me and significant for sinus rhythm, rate of 102, no significant ST or T wave changes.. Given patient history, exam and workup, patient's presentation most likely represents multiorgan failure in the setting of end-stage breast cancer. I had a interactive discussion with patient and family regarding next steps. We will plan for patient to return home with hospice with appropriate pain and nausea control. Patient care on and off to oncoming physician pending hospice discussion. Britton Obrien: Upon assumption of care patient was ill-appearing. She has a terminal diagnosis and is in the end stages of this disease process with multiorgan failure. Shared decision-making discussion was had at bedside prior to my assumption of care and patient is already on hospice, wishes to continue to be on hospice and return home. Given this and the fact that she cannot take oral medications with her new diagnosis of likely obstruction and impending abdominal catastrophe I accessed her port and gave her multiple doses of Dilaudid for pain control. The case was discussed at length with hospice, they converted her pain medications from oral to alternative route and patient is appropriate for discharge home with EMS at this time. Procedures <Denis Clark MD - Last Filed: 05/23/24 07:40> Risk/Benefits of Procedure(s) Were Explained: Yes Critical Care <Denis Clark MD - Last Filed: 05/23/24 07:40> Critical Care Time Critical Care Time: Yes Attestation: On 05/23/24, the high probability of a clinically significant, sudden or life threatening deterioration of the following system(s) renal, cardiac GI required my full and direct attention, intervention and personal management. The time I documented below is in addition to time spent performing reported procedures but includes the following listed in this critical care notation. Total Time Total Critical Care Time: 40
--- NOTE | 2024-05-23 05:04 | CT_ITS ---
PROCEDURE INFORMATION: Exam: CT Abdomen And Pelvis With Contrast Exam date and time: 05/23/2024 5:31 AM Age: 44 years old Clinical indication: Abdominal pain; Generalized; Additional info: Breast CA w/ extensive mets, abd pain and vomiting TECHNIQUE: Imaging protocol: Computed tomography of the abdomen and pelvis with contrast. Radiation optimization: All CT scans at this facility use at least one of these dose optimization techniques: automated exposure control; mA and/or kV adjustment per patient size (includes targeted exams where dose is matched to clinical indication); or iterative reconstruction. Contrast material: ISOVUE; Contrast volume: 75 ml; Contrast route: IV; COMPARISON: CT ABDOMEN PELVIS WO/W CON 03/22/2024 10:30 AM FINDINGS: Lungs: Lung bases are clear as visualized. Heart: Base of heart is unremarkable as visualized. Liver: Normal. No mass. Gallbladder and biliary ducts: Normal. No calcified stones. No ductal dilation. Pancreas: Normal. No ductal dilation. Spleen: Heterogeneous appearance of the spleen is again noted and likely exacerbated by phase of contrast. Adrenal glands: Normal. No mass. Kidneys and ureters: Unchanged double J stent within the left upper urinary collecting system. Stomach and bowel: The stomach is distended and demonstrates wall thickening and mucosal enhancement. Dilation of the transverse colon, ascending colon, cecum is noted with mucosal hyperenhancement and prominent stool. There is suggestion of mild abrupt transition point at the splenic flexure. No pneumatosis. No significant wall thickening. Appendix: Appendix is not well visualized, no secondary evidence of appendicitis. Intraperitoneal space: Again demonstrated is omental carcinomatosis in similar severity to prior comparison performed on 03/22/2024. Associated moderate volume peritoneal ascites with simple attenuation is again noted. Vasculature: Unremarkable. No abdominal aortic aneurysm. Lymph nodes: Bilateral hilar lymphadenopathy. Urinary bladder: Unremarkable as visualized. Reproductive: There is hypertrophy and heterogeneity of the bilateral ovaries similar to prior comparison. Bones/joints: Unremarkable. No acute fracture. Soft tissues: Undulating contour of the liver with multiple ill-defined hepatic masses similar to prior comparisons, however more severe when it comes to contour irregularity suggesting the pseudo cirrhosis pattern given the underlying history of breast carcinoma. Other findings: Some of which appear calcified. IMPRESSION: 1. Findings are concerning for possible typhlitis with early large bowel obstruction and possible transition point at the hepatic flexure. Correlate clinically and recommend surgical /oncology referral. 2. Findings suggestive of gastritis. 3. 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
[2024-05-23] MEDS: LACTATED RINGERS 1000ML 1,000 ML 999 ML IV (05:16)
[2024-05-23] MEDS: ACETAMINOPHEN 1,000MG/100ML VIAL 1000 MG IV (05:16)
[2024-05-23] MEDS: HYDROMORPHONE 2MG/ML SYRINGE 1 MG IV ×2 (05:17→11:38)
--- NOTE | 2024-05-23 05:21 | PC.NURSE ---
Accessed pt's port with power port 0.75 inch
[2024-05-23 05:30] LABS: Basophils # 0.1 K/mm3 (0-0.2); Basophils % 0.4 % (0.1-2.0); Eosinophils # 0.1 K/mm3 (0.0-0.4); Eosinophils % 0.5 % (0.1-12.0); Hematocrit 42.8 % (37.0-47.0); Hemoglobin 13.3 g/dL (12.2-16.2); Lymphocytes # 0.4 K/mm3 (0.7-4.5); Lymphocytes % 2.3 % (10-50); Mean Corpuscular Hemoglobin 26.8 pg (27.0-31.2); Mean Corpuscular Volume 86.6 fl (81-99); Mean Platelet Volume 8.6 fl (7.4-10.4); Monocytes # 0.7 K/mm3 (0.1-1.0); Monocytes % 4.3 % (1.7-9.3); Neutrophils # 14.1 K/mm3 (1.8-7.8); Neutrophils % 92.5 % (37.0-80.0); Platelet Count 214 K/mm3 (142-424); Red Blood Count 4.94 M/mm3 (4.20-5.40); Red Cell Distribution Width 19.9 % (11.5-17.5); White Blood Count 15.2 K/mm3 (4.8-10.8)
[2024-05-23 05:34] LABS: MANUAL DIFFERENTIAL MANUAL DIFFERENTIAL (MANUAL DIFF)
[2024-05-23] MEDS: SODIUM CHLORIDE 0.9% 10ML SYR (RAD ONLY) 10 ML IV (05:43)
[2024-05-23] MEDS: IOPAMIDOL-370 (76%);100ML BOTTLE 75 ML IV (05:43)
[2024-05-23] MEDS: HYDROMORPHONE 2MG/ML SYRINGE 2 MG IV ×2 (05:51→10:19)
[2024-05-23] MEDS: SODIUM CHLORIDE 0.9% 25ML BAG 25 ML IV (06:00)
[2024-05-23] MEDS: PROMETHAZINE HCL 25MG/ML 1ML VIAL 25 MG IV (06:00)
[2024-05-23 06:20] LABS: Alanine Aminotransferase 205 U/L (12-78); Albumin Level 2.6 g/dl (3.5-5.0); Albumin/Globulin Ratio 0.9 (1.1-1.8); Alkaline Phosphatase 1008 U/L (38-126); Anion Gap 10.8 mEq/L (5-15); Aspartate Amino Transferase 310 U/L (14-36); Bilirubin,Total 1.4 mg/dl (0.2-1.3); Blood Urea Nitrogen 61 mg/dl (7-17); Calcium 8.7 mg/dl (8.4-10.2); Carbon Dioxide 19 mmol/L (22.0-30.0); Chloride 86 mmol/L (98-107); Creatinine Clearance Estimated 42 mL/min (50-200); Estimated Glomerular Filt Rate 24 ml/min (>60); GFR (African American) 29 ML/MIN (>60); Globulin 2.8 g/dL (1.3-3.2); Glucose 88 mg/dl (74-100); Lipase 177 U/L (23-300); Magnesium 2.3 mg/dl (1.6-2.3); Potassium 5.8 mmoL/L (3.5-5.1); Total Protein,Serum 5.4 g/dl (6.3-8.2)
[2024-05-23 06:22] LABS: Sodium 110 mmol/L (136-145)
--- NOTE | 2024-05-23 06:22 | PC.NURSE ---
Patient sodium is 110. Dr. Clark notified.
--- NOTE | 2024-05-23 07:13 | PC.NURSE ---
elías colindres is speaking with kristy
--- NOTE | 2024-05-23 07:14 | ECG_ITS ---
APPROVED REPORT Exam: Resting ECG HR:102 bpm ECG Measurements Heart Rate 102 AXES IN 144 P 67 QRSd 80 QRS 1 QT 299 T 35 QTc 358 Conclusion SINUS TACHYCARDIA ABNORMAL RHYTHM ECG Electronically signed by : ISAIAS FOY, 05/23/2024 14:35:36
--- NOTE | 2024-05-23 07:22 | PC.NURSE ---
at speaking with pt and family
--- NOTE | 2024-05-23 07:35 | PC.NURSE ---
SPoke with hospice abut pt continued care and the need for the hospice nurse to be at bs with the MD to discuss further pt care at home. They will have the nurse of the pt return the call once they reach out to them.
[2024-05-23 07:43] VITALS: BP 139/93; PULSE 108; RESP 16; O2SAT 96
--- NOTE | 2024-05-23 08:40 | PC.NURSE ---
HOSPICE INTAKE CALLED AND SAID THAT PT'S HOSPICE NURSE KELSEY WILL CALL BACK WHEN AVAILABLE
--- NOTE | 2024-05-23 08:45 | PC.NURSE ---
pt requesting that the bp machine be turned off
--- NOTE | 2024-05-23 08:47 | PC.NURSE ---
SPOKE WITH AMIRA RN FROM HOSPICE ABOUT THIS PT. SHE IS GOING TO TALK WITH THE BODY PAINTER ABOUT ACCESSING THIS PATIENT'S PORT AT HOME TO GIVE IV MEDS THROUGH IT AND STATES SHE WOULD BE HERE SHORTLY TO TALK TO THE ER MD AND GET A PLAN TOGETHER THAT WORKS FOR EVERYONE
[2024-05-23 09:04] LABS: Lymphocytes % 4 % (10-50); Monocytes % 3 % (2-9); Neutrophils % 93 % (42-76); Platelet Estimate Normal; RBC Morphology Normal; Total Cells Counted 100
[2024-05-23 09:32] VITALS: BP 122/82; PULSE 112; RESP 20; O2SAT 99
--- NOTE | 2024-05-23 09:32 | PC.NURSE ---
AMIRA RN WITH HOSPICE AT BEDSIDE
--- NOTE | 2024-05-23 10:07 | SW/DCPLANNER ---
Per Valerie w/ Hospice the plan for this patient is to return back home w/ family and Hospice services.
[2024-05-23] MEDS: ONDANSETRON 4MG/2ML VIAL 4 MG IV (10:19)
--- NOTE | 2024-05-23 11:35 | PC.NURSE ---
called [facility] called to transport pt back home
[2024-05-23 12:52] VITALS: BP 122/82; PULSE 112; RESP 16; TEMP 36.7
== END 2024-05-23 12:53 | disposition home or self-care (01) ==
PROVIDERS: Emergency Provider Emergency Medicine; PCP Family Medicine
DX: N17.9 Acute kidney failure, unspecified (principal); K37 Unspecified appendicitis; E87.1 Hypo-osmolality and hyponatremia; K56.600 Partial intestinal obstruction, unspecified as to cause
CPT/HCPCS: 74177; 80053; 83690; 83735; 85007; 85025; 85027; 93005; 96361; 96374; 96375; 96376; 99291; J0131; J1170; J2405; J2550; J7120; Q9967